=== PATIENT | female | born 1950 | race Caucasian/White ===

== ENCOUNTER 2018-04-10 09:37 | Inpatient (IN) ==
[2018-04-10 10:24] LABS: Eosinophils # 0.1 K/mcL (0.0-0.6); Eosinophils % 1.9 %; Hematocrit 41.4 % (35.3-44.9); Hemoglobin 15.1 g/dL (11.5-15.4); Immature Granulocytes % 0.3 % (0-4); Lymphocytes # 0.4 K/mcL (0.6-4.6); Lymphocytes % 5.8 %; Mean Corpuscular HGB Conc 36.5 g/dL (31.6-35.5); Mean Corpuscular Volume 93.2 fL (83.0-100.0); Mean Platelet Volume 10.9 fL (9.4-12.4); Monocytes # 0.3 K/mcL (0.0-1.3); Monocytes % 5.4 %; Neutrophils # 5.5 K/mcL (1.6-8.9); Platelet Count 235 K/mcL (140-400); Red Blood Count 4.44 M/mcL (3.82-4.97); Red Cell Distribution Width 13.4 % (11.5-14.5); Segmented Neutrophils % 86.6 %
--- NOTE | 2018-04-10 10:25 | Emergency Department Note ---
Disposition Clinical Impression: Hyponatremia Cerebrovascular accident Qualifiers: CVA mechanism: unspecified Qualified Code(s): I63.9 - Cerebral infarction, unspecified Disposition: Admitted As Inpatient Condition: Good Referrals: Elaina Andrade CNP [Primary Care Provider] - Forms: ED Satisfaction Letter General Adult HPI - General Chief complaint: ED Neuro Symptoms/Deficit Stated complaint: ALEXX/neuro slurred speech x 2 days/headache Nursing Notes Reviewed: Yes Vital Signs Reviewed: Yes - History of Present Illness HPI Narrative: Slurred speech right-sided facial weakness that was first noticed this morning. Sister also states patient is confused. Last known well was 9:00 last night per the . Patient is currently being treated for a nonhealing wound to her left lower extremity. Patient does say that she feels a little confused. She reports that she was taking Bactrim and was told to stop this after she developed a rash all over her body. She states the rash is itchy. She denies any overt shortness of breath she states she does have a cough and has some mild shortness of breath but not to the extreme. No chest pain. She is conversant and laughing whenever I am examining her. There is no gross lateralizing weakness or extremities however she does have a mild droop to the right face. She is alert and oriented 3 however does appear confused. She forgot only takes a long time to answer questions. But she does know person place and time. Pain Scale: 10 - Related Data Home Medications Medication Instructions Recorded Confirmed Losartan/Hydrochlorothiazide 1 tab PO DAILY 01/29/18 01/29/18 [Losartan-Hctz 100-25 mg Tab] Cefepime HCl [Maxipime] 2 gm IV BID 04/10/18 04/10/18 Ibuprofen [Motrin Ib] 400 mg PO BID PRN 04/10/18 04/10/18 Allergies Allergy/AdvReac Type Severity Reaction Status Date / Time sulfamethoxazole Allergy Hives Verified 04/10/18 11:33 [From Bactrim] trimethoprim [From Bactrim] Allergy Hives Verified 04/10/18 11:33 All systems ED: reviewed and negative except as stated. Review of Systems: As Per HPI Constitutional: Denies: fever, chills Eyes: Denies: vision change Cardiovascular: Denies: chest pain, syncope Respiratory: Denies: cough, dyspnea Gastrointestinal: Denies: abdominal pain, nausea, vomiting, diarrhea Genitourinary: Denies: urgency, dysuria, frequency Musculoskeletal: Denies: back pain, neck pain Integumentary: Reports: lesions (non healing wound to left lower leg. Wound vac on) Past Medical History - Past Medical History Attestation: Yes The following information was validated with the patient. Source: patient Medical history: Reports: hyperlipidemia, hypertension, venous stasis Surgical history: Reports: appendectomy, orthopedic, other Psychiatric history: Reports: no psych history - Social History Smoking Status: Never smoker Smokeless Tobacco Status: No Alcohol use: Reports: none Drug use: Reports: none Physical Exam - General Limitations: no limitations General appearance: alert, in no apparent distress, other (Patient does appear somewhat confused and has mildly slurred speech.) - Head Head exam: atraumatic, normocephalic, normal inspection - Eye Eye exam: Present: normal appearance, PERRL, EOMI - ENT ENT exam: normal exam, normal oropharynx, mucous membranes moist, other ( Patient has good nasolabial folds whenever she smiles however at rest she does appear to have a right-sided facial droop. The patient's sister states that it was worse earlier but does report that it is still there.) - Neck Neck exam: Present: normal inspection, full ROM, trachea midline - Chest Chest inspection: Present: normal inspection, symmetric chest wall rise - Respiratory Respiratory exam: Present: normal lung sounds bilaterally. Absent: respiratory distress, accessory muscle use - Cardiovascular Cardiovascular exam: Present: regular rate, normal rhythm, normal heart sounds - Abdominal Exam Abdominal exam: Present: soft, Non-Tender. Absent: tenderness, distention, guarding, rebound, rigidity, organomegaly - Extremities Exam Extremities exam: Present: normal inspection, full ROM. Absent: tenderness, pedal edema - Back Exam Back exam: Present: normal inspection, full ROM. Absent: tenderness - Neurological Exam Neurological exam: Present: alert, oriented X3, other (Patient has good sensation in all 4 extremity is. She has good motor she has generalized weakness but no lateralizing deficits of her extremities. Patient does have a right-sided facial droop. However whenever she smiles she has good nasolabial folds. She does have some a mild slurred speech.). Absent: motor sensory deficit - Psychiatric Psychiatric exam: Present: normal affect, normal mood - Skin Skin exam: Present: warm, dry, rash (Urticarial to most of her body) Course Course Narrative: Female patient presenting to the emergency department with her sister. Sister states that she is bringing the patient today to have blood work done. 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 I have seen her in the hospital approximately a week to 2 ago for PICC line issues. She states she had her PICC line changed has been working appropriately. However she is supposed to have repeat lab work done today. When the sister went to put her up she states that the patient had slurred speech and some right-sided facial drooping. She brought her to the hospital. On arrival to the room the patient does seem to be more confused than normal. She does have a slurred speech. She has good nasolabial fold however at rest her right side of her mouth does appear to be drooping. The sister states that her symptoms are getting better however she does still have some slurred speech. The patient has no lateralizing deficits to her arms or legs. She has a generalized weakness. She does have a wound VAC to the left lower extremity. She reports a cough and some mild shortness of breath for the past week. Denies any chest pain. Also complaining of a rash that is very itchy to her body. States it started around Saturday. She is concerned and spoke with Dr. Casarez the ID doctor. They stopped her Bactrim at that time. The rash has not gotten any worse however it is still there. She does describe it as itching. It appears to be urticarial in nature. Patient's lung sounds are clear heart tones are normal. Her abdomen is soft nontender on exam. Patient sister states that her symptoms have gotten better since she has been here. We did activate the stroke alert. CT was negative. He [facility] neurologist can over the telephone stroke monitor and advised that she also believes the patient is having a stroke at this time. However due to patient's resolving symptoms and minor symptoms we will not be giving TPA at this time. She is also greater than 6 hours since the last known well. Patient did become mildly hypotensive. We did give her a liter of fluid. She is also found to be hyponatremic. We will have patient on a fluid restriction while she is here. She recommended an MRI the patient's head and an MRA without contrast. They state they do not believe the patient is a candidate for thrombectomy. They were agreeable with no TPA. Patient does have an urticarial rash to most of her body she does not appear to be in anaphylaxis. She has not short of breath. She has no swelling. Oropharynx is not erythematous. She does not appear to be in distress. - Reevaluation(s) Reevaluation #1: I did discuss the patient with Dr. Perkins the neurologist. The MRI did show stenosis of her vertebral artery. We will admit patient to the hospital service for further neurology workup. Time: 15:43 - Consultations Consultation #1: I spoke with Dr Lundy. He states thta he wll consult with the Pt. He had no further recommendations. Time: 15:36 Consultation #2: Dr Martinez accepted Pt in stable condition. Time: 15:42 Vital Signs Temperature 98.3 F 04/10/18 09:43 Pulse Rate 76 04/10/18 09:43 Respiratory Rate 24 04/10/18 09:43 Blood Pressure 80/55 04/10/18 09:43 O2 Sat by Pulse Oximetry 98 04/10/18 09:43 Temperature 98.3 F 04/10/18 09:48 Pulse Rate 79 04/10/18 15:35 Respiratory Rate 22 04/10/18 15:35 Blood Pressure 98/68 04/10/18 15:35 O2 Sat by Pulse Oximetry 97 04/10/18 15:35 Oxygen Delivery Oxygen Delivery Nasal Cannula Medical Decision Making - Medical Records Medical records reviewed: Yes I reviewed the patient's medical records. - Lab Data Lab results reviewed: Yes I reviewed the patient's lab results. Result diagrams: 04/10/18 10:09 04/10/18 10:09 Lab Results 04/10/18 04/10/18 04/10/18 Range/Units 10:09 10:09 10:09 WBC 6.3 (4.3-11.1) K/mcL RBC 4.44 (3.82-4.97) M/mcL Hgb 15.1 (11.5-15.4) g/dL Hct 41.4 (35.3-44.9) % MCV 93.2 (83.0-100.0) fL MCH 34.0 H (28.0-33.3) pg MCHC 36.5 H (31.6-35.5) g/dL RDW 13.4 (11.5-14.5) % Plt Count 235 (140-400) K/mcL MPV 10.9 (9.4-12.4) fL Immature Gran % 0.3 (0-4) % Seg Neutrophils % 86.6 % Lymphocytes % 5.8 % Monocytes % 5.4 % Eosinophils % 1.9 % Basophils % 0.0 % Neutrophils # 5.5 (1.6-8.9) K/mcL Lymphocytes # 0.4 L (0.6-4.6) K/mcL Monocytes # 0.3 (0.0-1.3) K/mcL Eosinophils # 0.1 (0.0-0.6) K/mcL Basophils # 0.0 (0.0-0.2) K/mcL PT 13.0 H (9.4-12.1) Seconds INR 1.2 APTT 25.9 L (26.0-36.0) Seconds Sodium 123 L (136-145) mEq/L Potassium 3.7 (3.5-5.1) mEq/L Chloride 93 L (98-107) mEq/L Carbon Dioxide 16 L (23-29) mEq/L BUN 80 H (8-23) mg/dL Creatinine 1.63 H (0.60-1.20) mg/dL Est GFR ( Amer) 38 L (> 60) Est GFR (Non-Af Amer) 31 L (> 60) BUN/Creatinine Ratio 49 H (6-26) Glucose 162 H (70-105) mg/dL Calculated Osmolality 284 (280-300) Lactic Acid (0.5-2.2) mmol/L Calcium 9.8 (8.6-10.3) mg/dL Troponin I < 0.03 (< 0.04) ng/mL Urine Color (Yellow) Urine Clarity (Clear) Urine pH (5.0-8.0) pH Units Ur Specific [place] (1.010-1.025) Urine Protein (Neg-Trace) mg/dL Urine Glucose (UA) (Normal) mg/dL Urine Ketones (Negative) mg/dL Urine Blood (Negative) Urine Nitrite (Negative) Urine Bilirubin (Negative) Urine Urobilinogen (Normal) mg/dL Ur Leukocyte Esterase (Negative) Urine Microscopic RBC (0-3) per hpf Urine Microscopic WBC (0-3) per hpf Ur Squamous Epith Cells (None-Few) per lpf Amorphous Sediment (Few) Urine Bacteria (None-Few) per hpf Hyaline Casts (None-Few) per lpf Ur Culture Indicated? (NO) Specimen Rejected 04/10/18 04/10/18 04/10/18 Range/Units 11:32 12:26 14:00 WBC (4.3-11.1) K/mcL RBC (3.82-4.97) M/mcL Hgb (11.5-15.4) g/dL Hct (35.3-44.9) % MCV (83.0-100.0) fL MCH (28.0-33.3) pg MCHC (31.6-35.5) g/dL RDW (11.5-14.5) % Plt Count (140-400) K/mcL MPV (9.4-12.4) fL Immature Gran % (0-4) % Seg Neutrophils % % Lymphocytes % % Monocytes % % Eosinophils % % Basophils % % Neutrophils # (1.6-8.9) K/mcL Lymphocytes # (0.6-4.6) K/mcL Monocytes # (0.0-1.3) K/mcL Eosinophils # (0.0-0.6) K/mcL Basophils # (0.0-0.2) K/mcL PT (9.4-12.1) Seconds INR APTT (26.0-36.0) Seconds Sodium (136-145) mEq/L Potassium (3.5-5.1) mEq/L Chloride (98-107) mEq/L Carbon Dioxide (23-29) mEq/L BUN (8-23) mg/dL Creatinine (0.60-1.20) mg/dL Est GFR ( Amer) (> 60) Est GFR (Non-Af Amer) (> 60) BUN/Creatinine Ratio (6-26) Glucose (70-105) mg/dL Calculated Osmolality (280-300) Lactic Acid 1.5 (0.5-2.2) mmol/L Calcium (8.6-10.3) mg/dL Troponin I (< 0.04) ng/mL Urine Color Yellow (Yellow) Urine Clarity Slightly Cloudy A (Clear) Urine pH 6.0 (5.0-8.0) pH Units Ur Specific [place] 1.019 (1.010-1.025) Urine Protein 100 H (Neg-Trace) mg/dL Urine Glucose (UA) Normal (Normal) mg/dL Urine Ketones Negative (Negative) mg/dL Urine Blood Moderate H (Negative) Urine Nitrite Negative (Negative) Urine Bilirubin Negative (Negative) Urine Urobilinogen Normal (Normal) mg/dL Ur Leukocyte Esterase Negative (Negative) Urine Microscopic RBC 0-3 (0-3) per hpf Urine Microscopic WBC 3-5 H (0-3) per hpf Ur Squamous Epith Cells Many H (None-Few) per lpf Amorphous Sediment Few (Few) Urine Bacteria Many H (None-Few) per hpf Hyaline Casts None Seen (None-Few) per lpf Ur Culture Indicated? NO (NO) Specimen Rejected Clotted - Radiology Data Radiology results reviewed: Yes I reviewed the patient's radiology results. Head CT 04/10/18 10:07 IMPRESSION: No acute intracranial abnormality. D/ / Bruce Alonzo MD / Bruce Alonzo MD Interpreting Provider: Bruce Alonzo MD Chest X-Ray 04/10/18 10:08 IMPRESSION: Subtle right suprahilar nodular opacity, nonspecific and likely related to overlapping structures at the 1st costochondral junction. Consider short-term follow-up to ensure resolution. Mild left basilar atelectasis. D/ / 04/10/2018 10:36:28 Nilam Yap MD / areli Interpreting Provider: Nilam Yap MD - EKG Data EKG #1 EKG attestation: Yes I reviewed and interpreted this EKG. EKG results narrative: Normal sinus rhythm at a rate 85. NC interval is 196. Castration is 101. QT is 360. QTC is 428. No signs of acute ischemia. No significant change from previous EKG dated 01/28/2018.
[2018-04-10] MEDS ORDERED: WATER FOR INJ IVPB ONE ×2 (10:30)
[2018-04-10] MEDS ORDERED: ALTEPLASE IVPB ONE ×2 (10:30)
[2018-04-10 10:31] LABS: INR 1.2
[2018-04-10 10:34] LABS: Activated Partial Thrombo Time 25.9 Seconds (26.0-36.0)
[2018-04-10] MEDS ORDERED: 0.9 % Sodium Chloride 1,000 ML ONE (10:40)
[2018-04-10 10:44] LABS: BUN/Creatinine Ratio 49 (6-26); Blood Urea Nitrogen 80 mg/dL (8-23); Calcium 9.8 mg/dL (8.6-10.3); Carbon Dioxide 16 mEq/L (23-29); Chloride 93 mEq/L (98-107); Glucose 162 mg/dL (70-105); Osmolality,Calculated 284 (280-300); Potassium 3.7 mEq/L (3.5-5.1); Sodium 123 mEq/L (136-145); Troponin I < 0.03 ng/mL (< 0.04); eGFR For Non-African Americans 31 (> 60)
--- NOTE | 2018-04-10 10:51 | Emergency Department Note ---
Disposition Clinical Impression: Cerebrovascular accident Qualifiers: CVA mechanism: unspecified Qualified Code(s): I63.9 - Cerebral infarction, unspecified Disposition: Still a Patient Forms: ED Satisfaction Letter General Adult HPI - General Chief complaint: ED Neuro Symptoms/Deficit Stated complaint: ALEXX/neuro slurred speech x 2 days/headache Time Seen by Provider: 04/10/18 09:51 - History of Present Illness Pain Scale: 10 - Related Data Home Medications Medication Instructions Recorded Confirmed Gabapentin [Neurontin] 100 mg PO HS 01/29/18 01/29/18 Losartan/Hydrochlorothiazide 1 tab PO DAILY 01/29/18 01/29/18 [Losartan-Hctz 100-25 mg Tab] Tramadol HCl [Ultram] 50 mg PO TID PRN 01/29/18 01/29/18 Previous Rx's Medication Instructions Recorded Amoxicillin/Clavulanate [Augmentin] 875 mg PO BID #14 tablet 01/29/18 Ondansetron ODT [Zofran ODT] 4 mg SL Q8HR PRN #12 tab.rapdis 01/29/18 Allergies Allergy/AdvReac Type Severity Reaction Status Date / Time No Known Allergies Allergy Verified 04/10/18 09:39 Past Medical History - Past Medical History Medical history: Reports: hyperlipidemia, hypertension, venous stasis Surgical history: Reports: appendectomy, orthopedic, other Psychiatric history: Reports: no psych history - Social History Smoking Status: Never smoker Smokeless Tobacco Status: No Alcohol use: Reports: none Drug use: Reports: none Physical Exam - General General appearance: alert, in no apparent distress Course - Reevaluation(s) Reevaluation #1: Attestation note: Patient was seen with the emergency medicine resident/nurse practitioner/ physician human resources benefits assistant/transitional resident/medical student: Dr. Carmella Bradley I have personally performed a face to face evaluation on this patient. I have reviewed and agree with history and physical examination patient management and disposition. Briefly the salient points of the case are as follows: 60-year-old female presents with the neuro findings in slurred speech since 9 PM last night. Patient has what appears to be a stroke stroke alert was called the neurologist on the telephone stroke robot from the [facility] evaluated the patient and determined that this patient is out of the TPA window which revealed read. Due to the patient's possible compromise of renal function and GFR we will do an MRA MRI without contrast and admit patient at [facility] to the hospitalist with neuro consultation. She did get aspirin or anything getting aspirin. She has some mild facial droop mild slurred speech. Patient to be admitted. Provided 45 minutes critical care service for this patient admission disposition pending Time: 10:49 Vital Signs Temperature 98.3 F 04/10/18 09:43 Pulse Rate 76 04/10/18 09:43 Respiratory Rate 24 04/10/18 09:43 Blood Pressure 80/55 04/10/18 09:43 O2 Sat by Pulse Oximetry 98 04/10/18 09:43 Temperature 98.3 F 04/10/18 09:48 Pulse Rate 79 04/10/18 10:33 Respiratory Rate 20 04/10/18 10:33 Blood Pressure 90/61 04/10/18 10:33 O2 Sat by Pulse Oximetry 97 04/10/18 10:33 Oxygen Delivery Oxygen Delivery Nasal Cannula Medical Decision Making - Lab Data Result diagrams: 04/10/18 10:09 04/10/18 10:09 Lab Results 04/10/18 04/10/18 04/10/18 Range/Units 10:09 10:09 10:09 WBC 6.3 (4.3-11.1) K/mcL RBC 4.44 (3.82-4.97) M/mcL Hgb 15.1 (11.5-15.4) g/dL Hct 41.4 (35.3-44.9) % MCV 93.2 (83.0-100.0) fL MCH 34.0 H (28.0-33.3) pg MCHC 36.5 H (31.6-35.5) g/dL RDW 13.4 (11.5-14.5) % Plt Count 235 (140-400) K/mcL MPV 10.9 (9.4-12.4) fL Immature Gran % 0.3 (0-4) % Seg Neutrophils % 86.6 % Lymphocytes % 5.8 % Monocytes % 5.4 % Eosinophils % 1.9 % Basophils % 0.0 % Neutrophils # 5.5 (1.6-8.9) K/mcL Lymphocytes # 0.4 L (0.6-4.6) K/mcL Monocytes # 0.3 (0.0-1.3) K/mcL Eosinophils # 0.1 (0.0-0.6) K/mcL Basophils # 0.0 (0.0-0.2) K/mcL PT 13.0 H (9.4-12.1) Seconds INR 1.2 APTT 25.9 L (26.0-36.0) Seconds Sodium 123 L (136-145) mEq/L Potassium 3.7 (3.5-5.1) mEq/L Chloride 93 L (98-107) mEq/L Carbon Dioxide 16 L (23-29) mEq/L BUN 80 H (8-23) mg/dL Creatinine 1.63 H (0.60-1.20) mg/dL Est GFR ( Amer) 38 L (> 60) Est GFR (Non-Af Amer) 31 L (> 60) BUN/Creatinine Ratio 49 H (6-26) Glucose 162 H (70-105) mg/dL Calculated Osmolality 284 (280-300) Calcium 9.8 (8.6-10.3) mg/dL Troponin I < 0.03 (< 0.04) ng/mL
[2018-04-10] MEDS ORDERED: Aspirin 325 MG TABLET PO ONE (11:00)
[2018-04-10 14:20] LABS: Bilirubin,Urine Negative (Negative); Blood,Urine Moderate (Negative); Color,Urine Yellow (Yellow); Glucose,Urine (UA) Normal (Normal); Ketones,Urine Negative (Negative); Leukocyte Esterase,Urine Negative (Negative); Nitrite,Urine Negative (Negative); Protein,Urine 100 mg/dL (Neg-Trace); Specific Gravity,Urine 1.019 (1.010-1.025); Urobilinogen,Urine Normal (Normal)
[2018-04-10 14:23] LABS: Hyaline Casts,Urine None Seen per lpf (None-Few); RBC,Urine 0-3 per hpf (0-3); Squamous Epithelial Cell,Urine Many per lpf (None-Few)
[2018-04-10 14:25] LABS: Clarity,Urine Slightly Cloudy (Clear)
[2018-04-10 14:39] LABS: Amorphous Sediment,Urine Few (Few); Bacteria,Urine Many per hpf (None-Few)
[2018-04-10] MEDS ORDERED: traMADol 50 MG TABLET PO STA (15:55)
--- NOTE | 2018-04-10 16:45 | Neurology - Consult Note ---
Date of Encounter: 04/10/18 Time of Encounter: 16:41 Assessment and Plan (1) TIA (transient ischemic attack) Current Visit: Yes Status: Acute Symptoms better described as TIA than CVA since MRI of brain was negative for acute infarct and her symptoms have resolved within few hours after symptoms onset. She is aspirin naive so agree with aspirin 325mg daily. Will need echocardiography and carotid artery duplex. The finding of severe right vertebral artery stenosis or occlusion on MRA of brain require conservative therapy only and CT angio result likely will not change treatment. However, for completeness of the work up if CT angio is to be done, it should be done after renal function improves to a point where CT angiogram with contrast can be safely administered. Check lipid panel and treat with statin accordingly. Please continue medical and supportive care. History of Present Illness Chief complaint: facial droop and slurred speech, TIA HPI: Ms. Crespo is a 68 year old female with PMH significant for nonhealing wound in her lower extremity, HTN, HDL venous stasis dermatitis, ulcer to the left leg who presented to the Er with altered mental status and facial droop. Was noticed to have facial droop this AM, last known well last night. Was also found to be slightly confused. This was noticed by her sister in law Jaye who states that she found her having right sided facial droop and she has difficulty getting her words out. The symptoms lasted few hours in duration and then slowly improved. CT of head reported no acute intracranial abnormality.[facility] stroke team recommended no tPA thrombolysis. She completed MRI of brain which showed no acute intracranial abnormality. No acute infarct. 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 At present time she was just transferred from and she no longer has facial droop or speech difficulty. She is somewhat nervous because of the left pain and she was given pain med. She is having stiffness to the left leg likely due to presence of pain Past Med Surg Social Fam HX - Past Medical History Medical history: hyperlipidemia, hypertension, venous stasis Additional medical history: Superficial Phlebitis Psychiatric history: no psych history - Past Surgical History Surgical History: appendectomy, orthopedic, other Additional surgical history: fx rt knee repair - Social History Smoking Status: Never smoker Smokeless Tobacco Status: No Alcohol use: none Drug use: none - Family History Mother Living Status: Medications and Allergies Losartan/Hydrochlorothiazide [Losartan-Hctz 100-25 mg Tab] 1 tab PO DAILY [History] Cefepime HCl [Maxipime] 2 gm IV BID 04/10/18 [History] Ibuprofen [Motrin Ib] 400 mg PO BID PRN 04/10/18 [History] 3 Allergy/AdvReac Type Severity Reaction Status Date / Time sulfamethoxazole Allergy Hives Verified 04/10/18 11:33 [From Bactrim] trimethoprim [From Bactrim] Allergy Hives Verified 04/10/18 11:33 All Systems: The remainder of the systems were reviewed and are negative Physical Examination - Vital Signs Vital Signs: Initial Vital Signs Temp Pulse Resp BP Pulse Ox 98.3 F 76 24 80/55 98 04/10/18 09:43 04/10/18 09:43 04/10/18 09:43 04/10/18 09:43 04/10/18 09:43 - Constitutional General appearance: chronically ill - Neurologic Sensorimotor examination: intact Detailed motor examination: other (Due to the left leg pain, muscle strength can not be accurated ly assessed. ) Motor examination - right side: 5/5: deltoids, biceps, triceps, wrist flexion, wrist extension, collection systems technician, hip flexors, tibialis Anterior, quadriceps, toe extension (EHL), plantarflexion Motor examination - left side: 5/5: deltoids, biceps, triceps, wrist flexion, wrist extension, collection systems technician Detailed sensory examination: intact Posture: other (None) Reflex and gait examination: intact Reflexes: Biceps: 2+, Triceps: 2+, Brachioradialis: 2+, Patella: 2+, Achilles: 2 + Mental Status Examination: awake, alert, oriented to person, oriented to place, oriented to time, follows commands appropriately, answers questions appropriately, no agnosia, no aphasia, no aproxia Cranial nerve examination: PERRL, EOMI, visual castro intact, corneal reflexes brisk symmetrically, sensory to face intact, mastication intact, no facial asymmetry is present, no dysarthria, hearing is intact symmetrically, soft palate elevates bilaterally upon phonation, gag reflex intact, flexes SCM and trapezius muscles symmetrically with full power, tongue protrudes midline, no atrophy or facial fasiculations present Results - Laboratory Findings CBC and BMP: 04/10/18 10:09 04/10/18 10:09 Abnormal lab findings: Abnormal lab results MCH 34.0 pg (28.0-33.3) H 04/10/18 10:09 MCHC 36.5 g/dL (31.6-35.5) H 04/10/18 10:09 Lymphocytes # 0.4 K/mcL (0.6-4.6) L 04/10/18 10:09 PT 13.0 Seconds (9.4-12.1) H 04/10/18 10:09 APTT 25.9 Seconds (26.0-36.0) L 04/10/18 10:09 Sodium 123 mEq/L (136-145) L 04/10/18 10:09 Chloride 93 mEq/L (98-107) L 04/10/18 10:09 Carbon Dioxide 16 mEq/L (23-29) L 04/10/18 10:09 BUN 80 mg/dL (8-23) H 04/10/18 10:09 Creatinine 1.63 mg/dL (0.60-1.20) H 04/10/18 10:09 Est GFR ( Amer) 38 (> 60) L 04/10/18 10:09 Est GFR (Non-Af Amer) 31 (> 60) L 04/10/18 10:09 BUN/Creatinine Ratio 49 (6-26) H 04/10/18 10:09 Glucose 162 mg/dL (70-105) H 04/10/18 10:09 Urine Clarity Slightly Cloudy (Clear) A 04/10/18 14:00 Urine Protein 100 mg/dL (Neg-Trace) H 04/10/18 14:00 Urine Blood Moderate (Negative) H 04/10/18 14:00 Urine Microscopic WBC 3-5 per hpf (0-3) H 04/10/18 14:00 Ur Squamous Epith Cells Many per lpf (None-Few) H 04/10/18 14:00 Urine Bacteria Many per hpf (None-Few) H 04/10/18 14:00 Consult Discharge Plan - Plan Referrals: Elaina nAdrade, TE[employer] [facility] [Primary Care Provider] -
[2018-04-10] MEDS ORDERED: Naloxone 0.4 MG/ML INJ IVP PRN (17:10)
[2018-04-10] MEDS ORDERED: Ipratropium/Albuterol Neb 3 ML IH PRN (17:27)
[2018-04-10] MEDS ORDERED: Cefepime HCl 2,000 MG in Water for inj. (sterile) 20 ML 20 ML IVP SCH (18:00)
[2018-04-10] MEDS ORDERED: Ondansetron ODT 4 MG TAB.RAPDIS SL PRN (18:18)
--- NOTE | 2018-04-10 18:24 | Internal Med History&Physical ---
<Rayshawn Pérez R - Last Filed: 04/10/18 18:21> Date of Encounter: 04/10/18 Time of Encounter: 18:21 Internal Medicine - H&P: HPI Chief complaint: Slurred speech Admitted From: Emergency Dept History of present illness: Ms. Crespo is a 68 year old female with a PMH of HTN who presented to [facility] on with facial droop and slurred speech. Patients symptoms began at 730 am, patient was unaware of symptoms. Relative noticed symptoms when picking her up for wound appointment and brought her to hospital ED. Stroke alert called in the ED, [facility] called - no TPA or thrombectomy. Her symptoms have resolved now. Patient was recently seen by wound care and put on Cefepime for a wound infection 3 weeks ago via PICC line, and Bactrim was added 2 weeks ago. Bactrim was stopped with last dose 4 days ago due to outbreak of hives. Patient has not had any recent changes in sleep or activity. Patient has had minimal food intake for several weeks with only 1-2 snacks per day and no full meals, and has been drinking on average 12 cups of water daily. Her wound dressings are changed 2x per week. On ROS patient denies vision changes, hearing changes, palpitations, chest pain , nausea, vomiting, constipation, hematuria, increased urinary frequency, increased urinary urgency. Positive for chills, diarrhea which began after cefepime usage. Stool is soft, but not loose or liquid. Past Med Surg Social Fam HX - Past Medical History Medical history: hyperlipidemia, hypertension, venous stasis Additional medical history: Superficial Phlebitis Psychiatric history: no psych history - Past Surgical History Surgical History: appendectomy, orthopedic, other Additional surgical history: fx rt knee repair - Social History Smoking Status: Never smoker Smokeless Tobacco Status: No Alcohol use: none Drug use: none - Family History Mother Living Status: Hx Family Neurologic Disorders: Yes (CVA) Father Hx Family Endocrine Disorder: Yes (DM) Internal Medicine - H&P: Meds Losartan/Hydrochlorothiazide [Losartan-Hctz 100-25 mg Tab] 1 tab PO DAILY [History] Cefepime HCl [Maxipime] 2 gm IV BID 04/10/18 [History] Ibuprofen [Motrin Ib] 400 mg PO BID PRN 04/10/18 [History] 3 Allergy/AdvReac Type Severity Reaction Status Date / Time sulfamethoxazole Allergy Hives Verified 04/10/18 11:33 [From Bactrim] trimethoprim [From Bactrim] Allergy Hives Verified 04/10/18 11:33 All Systems PM: A 10-system review of systems was performed and is negative for pertinent findings except as documented above in the HPI. - Constitutional Vitals: Temp Pulse Resp BP Pulse Ox 98.3 F 79 22 118/96 97 04/10/18 09:48 04/10/18 15:35 04/10/18 16:31 04/10/18 16:31 04/10/18 15:35 General appearance: Present: A&O X 3, no acute distress, answers questions appropriately Exam: GEN: anxious appearing obese female in no acute distress, on 2L NC, A&Ox3 HEENT: dry mucous membranes, atruamatic, PEERL, EOMI CV: RRR, no murmurs RESP: CTAB, no wheezes, no rales GI: BSx4, non tender to palpation, no organomegaly NEURO: CN II-XII intact. strength symmetrical in biceps, triceps, paper sorter, deltoids , hip flexors, knee extensors, dorsiflexion, plantarflexion, hallux. Sensation intact bilaterally. Normal finger to nose, heel valladares glide bilaterally. Smile symmetric bilaterally. No facial droop. MSK: generalized weakness, no joint pain Internal Med - H&P Results - Labs CBC & Chem 7: 04/10/18 10:09 04/10/18 10:09 - Assessment and plan (1) TIA (transient ischemic attack) Current Visit: Yes Status: Acute Assessment and plan: NIH Stroke Scale score currently: 0 - symptoms resolved Possibly secondary to vertebral artery stenosis, risk factors include borderline HLD, obesity, HTN, age Consider workup for vasculitic causes Patient had symptoms for several hours - now resolved Head CT normal. Head MRA and Brain MRI show right vertebral artery proximal stenosis Continuous cardiac monitoring Echo, Carotid duplex U/S to evaluate for PFO, cardiac function and carotid artery stenosis Lipid panel, PT/OT, bedside swallow study, urine drug screen Start patient on cardiac diet. Start on full dose ASA (2) PETR (acute kidney injury) Current Visit: Yes Status: Acute Assessment and plan: Patient has baseline Cr: 0.8, Currently Cr: 1.68, BUN: 80 Pt appears dry despite increased water intake history Likely prerenal secondary to dehydration and HCTZ Patient on IFV for hyponatremia, monitor Cr function Hold nephrotoxic medications - ARB, HCTZ (3) Hyponatremia Current Visit: Yes Status: Acute Assessment and plan: Likely secondary to polydipsia in combination with HCTZ use Start patient on 0.9% NS 100 mL/hr, start diet and recheck BMP (4) HTN (hypertension) Current Visit: Yes Status: Acute Assessment and plan: Patient is boreline hypotensive at 98/68 Hold home HTN meds Qualifiers: Hypertension type: essential hypertension Qualified Code(s): I10 - Essential (primary) hypertension (5) Venous ulcer of leg Current Visit: No Status: Acute Assessment and plan: Chronic - wound vac in place Patient has Cefepime for wound infection Consult ID, follow per recommendations Qualifiers: Laterality: left Qualified Code(s): I83.029 - Varicose veins of left lower extremity with ulcer of unspecified site; L97.929 - Non-pressure chronic ulcer of unspecified part of left lower leg with unspecified severity; L97.929 - Non- pressure chronic ulcer of unspecified part of left lower leg with unspecified severity; L97.929 - Non-pressure chronic ulcer of unspecified part of left lower leg with unspecified severity; L97.929 - Non-pressure chronic ulcer of unspecified part of left lower leg with unspecified severity - Time Spent With Patient Total time spent is greater than 50% in coordination of care (as documented) at patient's floor/unit and/or counseling patient: <Andria Riddle - Last Filed: 04/10/18 21:32> Date of Encounter: 04/10/18 Internal Medicine - H&P: HPI History of present illness: Ms. Crespo is a 68 year old female All Systems PM: A 10-system review of systems was performed and is negative for pertinent findings except as documented above in the HPI. - Constitutional Vitals: Temp Pulse Resp BP Pulse Ox 98.9 F 88 17 116/72 96 04/10/18 19:13 04/10/18 20:05 04/10/18 20:05 04/10/18 20:05 04/10/18 19:13 Internal Med - H&P Results - Labs CBC & Chem 7: 04/10/18 10:09 04/10/18 10:09 - Attending Attestation I examined this patient and my medical decision-making was reviewed with the Resident Physician Dr. Pérez. I agree with the documented findings, disposition and treatment plan as described except to the extent set forth below. - Time Spent With Patient Total time spent is greater than 50% in coordination of care (as documented) at patient's floor/unit and/or counseling patient:
--- NOTE | 2018-04-10 18:35 | Infectious Disease Consult ---
Date of Encounter: 04/10/18 Time of Encounter: 18:26 Assessment and Plan (1) Venous ulcer of leg Status: Acute Assessment and plan: infected with pseudomonas aeruginosa currently on cefepime started on 03/19 infection improved; plan was to treat for 4-6 weeks depending on clinical picture wound vac to be changed saturday, will evaluate then and make further recommendations. continue cefepime; CrCl around 28; will change dose to 500mg q24 hurs Once Cr improves, we will dose adjust Qualifiers: Laterality: left Qualified Code(s): I83.029 - Varicose veins of left lower extremity with ulcer of unspecified site; L97.929 - Non-pressure chronic ulcer of unspecified part of left lower leg with unspecified severity; L97.929 - Non- pressure chronic ulcer of unspecified part of left lower leg with unspecified severity; L97.929 - Non-pressure chronic ulcer of unspecified part of left lower leg with unspecified severity; L97.929 - Non-pressure chronic ulcer of unspecified part of left lower leg with unspecified severity (2) Facial droop Status: Acute Assessment and plan: resolved - likely due to TIA (3) Rash Status: Acute Assessment and plan: started on 04/07 likely due to bactrim if does not improved in the next 48 hours, might consider that it's due to cefepime? zyrtec and ranitidine steroids (4) Allergy to antibiotic Status: Acute Assessment and plan: reaction on Saturday likely due to bactrim couldn't rule out reaction to cefepime though, so we have to be vigilant (5) PETR (acute kidney injury) Status: Acute Assessment and plan: likely prerenal will ask pharmacy to help us dose cefepime (6) Cerebrovascular accident Status: Acute Assessment and plan: TIA symptoms resolved neurology following Qualifiers: CVA mechanism: unspecified Qualified Code(s): I63.9 - Cerebral infarction, unspecified (7) HTN (hypertension) Status: Acute Qualifiers: Hypertension type: essential hypertension Qualified Code(s): I10 - Essential (primary) hypertension (8) Hyponatremia Status: Acute Infectious Disease HPI - Data of Consult Patient: known to practice within the last 3 years Consult date: 04/10/18 Requesting Physician: Joey Martinez MD Primary Care Provider: Elaina Andrade CNP - Consult Narrative Reason for consult: cellulitis/venous stasis with allergic reaction to antibiotics History of present illness: Ms. Crespo is a 68 year old female Patient is 68-year-old woman who was admitted today for possible CVA, I am seeing her for venous stasis ulcer that is infected. Patient is a 68-year-old woman who is well-known to my service who I am following for venous stasis ulcers infected with pseudomonas aeruginosa that is resistant to fluoroquinolones requiring cefepime. Patient also following with Dr. Patrick. We tried topical and wound care treatment but the leg never improved. I did receive a phone call from Dr. Patrick asking me to see the patient as an outpatient for antibiotic therapy. Patient was seen by Dr. velazquez and on 12/30/2017 she underwent left great saphenous vein radiofrequency ablation and left accessory saphenous vein radiofrequency ablation. Patient was doing well on the cefepime and symptoms were improving. I did see the patient on April 01 and there was concern for swelling and erythema on the midline site left upper extremity. Midline was removed placed on the opposite side. Patient was seen in the emergency department and DVT was ruled out. When I saw her in clinic there was still some erythema and swelling so I put her on Bactrim for 7 days. On 04/07 patient called my office stating that she is having a rash which we attributed to the Bactrim and we asked her to stop it. Patient was instructed to call if she starts having wheezing or shortness of breath and go to the nearest emergency department. This morning apparently patient started having some altered mental status, sluggish speech and left facial drooping. Apparently patient never had anything similar in the past. Patient was sent to the ED from dermatology. Since admission, patient has been afebrile. No tachycardia. She has been tachypneic and a little bit short of breath. She has also been mildly hypotensive. Presenting labs revealed WBC of 6.3 BUN of 80 and creatinine of 1.63. Blood cultures were obtained and a urine was obtained. Brain MRI showed no acute intracranial abnormalities. Absent signal in the intracranial right vertebral artery concerning for high-grade proximal stenosis or occlusion. They recommended a CTA of the chest. Neurology has been consult. Currently patient is awake and alert oriented pleasant she is a little bit anxious and shaky. Patient facial drooping has resolved and her speech is no longer slurred. CC: Joey Martinez MD Past Med Surg Social Fam HX - Past Medical History Medical history: hyperlipidemia, hypertension, venous stasis Additional medical history: Superficial Phlebitis Psychiatric history: no psych history - Past Surgical History Surgical History: appendectomy, orthopedic, other Additional surgical history: fx rt knee repair - Social History Smoking Status: Never smoker Smokeless Tobacco Status: No Alcohol use: none Drug use: none - Family History Mother Living Status: Hx Family Neurologic Disorders: Yes (CVA) Father Hx Family Endocrine Disorder: Yes (DM) Infectious Disease-CN:Meds Losartan/Hydrochlorothiazide [Losartan-Hctz 100-25 mg Tab] 1 tab PO DAILY [History] Cefepime HCl [Maxipime] 2 gm IV BID 04/10/18 [History] Ibuprofen [Motrin Ib] 400 mg PO BID PRN 04/10/18 [History] 3 Allergy/AdvReac Type Severity Reaction Status Date / Time sulfamethoxazole Allergy Hives Verified 04/10/18 11:33 [From Bactrim] trimethoprim [From Bactrim] Allergy Hives Verified 04/10/18 11:33 Review of systems: 10 point ROS done, negative other for what's mentioned in the HPI Exam - Constitutional Vitals: Temp Pulse Resp BP Pulse Ox 98.3 F 79 22 118/96 97 04/10/18 09:48 04/10/18 15:35 04/10/18 16:31 04/10/18 16:31 04/10/18 15:35 General appearance: cooperative, no acute distress, no febrile - Head Head exam: Present: atraumatic, normocephalic - Eye Eye exam: Present: EOMI, PERRL, sclera anicteric - ENT ENT exam: Present: mucous membranes dry, normal exam - Neck Neck exam: Present: full ROM. Absent: meningismus - Respiratory Respiratory exam: Present: CTAB. Absent: wheezes - Cardiovascular Cardiovascular exam: Present: RRR, +S1, +S2. Absent: systolic murmur - GI/Abdominal GI/Abdominal exam: Present: normal bowel sounds, soft. Absent: tenderness - Extremities Exam Additional comments: left lower extremity venous stasis with wound vac placed - Back Exam Back exam: Absent: CVA tenderness (L), CVA tenderness (R) - Neurological Exam Neurological exam: Present: alert, CN II-XII intact, oriented X3. Absent: altered, facial droop, speech deficit - Psychiatric Psychiatric exam: Present: agitated, anxious - Skin Additional comments: diffuse maculopapular rash on the face, trunk, extremities and back Infectious Disease CN: Results - Labs CBC & Chem 7: 04/10/18 10:09 04/10/18 10:09 Consult Discharge Plan - Plan Referrals: Elaina Andrade LABELING SPECIALIST [Primary Care Provider] -
[2018-04-10] MEDS: 0.9 % Sodium Chloride 1,000 ML IVC SCH (18:49)
[2018-04-10 20:35] LABS: Amphetamine Screen,Urine Negative ng/mL (Cutoff=1000); Barbiturate Screen,Urine Negative ng/mL (Cutoff=200); Benzodiazepines Screen,Urine Negative ng/mL (Cutoff=200); Cannabinoid Screen,Urine Negative ng/mL (Cutoff = 50); Cocaine Screen,Urine Negative ng/mL (Cutoff= 300); Opiate Screen,Urine Negative ng/mL (Cutoff=300); Phencyclidine Screen,Urine Negative ng/mL (Cutoff=25)
[2018-04-10] MEDS: predniSONE 20 MG TABLET PO SCH (22:12)
[2018-04-10 22:49] LABS: BUN/Creatinine Ratio 66 (6-26); Blood Urea Nitrogen 67 mg/dL (8-23); Calcium 9.1 mg/dL (8.6-10.3); Carbon Dioxide 16 mEq/L (23-29); Chloride 98 mEq/L (98-107); Glucose 102 mg/dL (70-105); Osmolality,Calculated 282 (280-300); Potassium 3.4 mEq/L (3.5-5.1); Sodium 126 mEq/L (136-145); eGFR For Non-African Americans 55 (> 60)
[2018-04-10] MEDS: Acetaminophen 325 MG TABLET PO PRN (23:28)
[2018-04-11 04:45] LABS: Eosinophils # 0.1 K/mcL (0.0-0.6); Eosinophils % 1.7 %; Hematocrit 33.9 % (35.3-44.9); Immature Granulocytes % 0.4 % (0-4); Lymphocytes # 0.5 K/mcL (0.6-4.6); Lymphocytes % 10.6 %; Mean Corpuscular HGB Conc 35.4 g/dL (31.6-35.5); Mean Corpuscular Hemoglobin 32.6 pg (28.0-33.3); Mean Corpuscular Volume 92.1 fL (83.0-100.0); Mean Platelet Volume 11.2 fL (9.4-12.4); Monocytes # 0.3 K/mcL (0.0-1.3); Monocytes % 6.9 %; Neutrophils # 3.7 K/mcL (1.6-8.9); Platelet Count 175 K/mcL (140-400); Red Blood Count 3.68 M/mcL (3.82-4.97); Red Cell Distribution Width 13.1 % (11.5-14.5); Segmented Neutrophils % 80.4 %
[2018-04-11] MEDS: 0.9 % Sodium Chloride 1,000 ML IVC SCH ×2 (04:48→16:35)
[2018-04-11 05:11] LABS: Alanine Aminotransferase 25 Units/L (7-52); Albumin/Globulin Ratio 1.1 (1.1-2.2); Alkaline Phosphatase 43 Units/L (34-104); Aspartate Amino Transferase 23 Units/L (13-39); BUN/Creatinine Ratio 71 (6-26); Bilirubin,Total 0.5 mg/dL (0.3-1.0); Blood Urea Nitrogen 59 mg/dL (8-23); Calcium 8.5 mg/dL (8.6-10.3); Carbon Dioxide 13 mEq/L (23-29); Chloride 100 mEq/L (98-107); Chol/HDL Ratio 5.9 (0-4.9); Cholesterol 107 mg/dL (< 200); Globulin 2.8 g/dL (2.4-3.5); Glucose 146 mg/dL (70-105); HDL Cholesterol 18 mg/dL (40-59); LDL Cholesterol,Calculated 65 mg/dL (0-99); Osmolality,Calculated 277 (280-300); Sodium 124 mEq/L (136-145); Total Protein 5.8 g/dL (6.4-8.9); Triglycerides 120 mg/dL (< 150); eGFR For Non-African Americans > 60 (> 60)
[2018-04-11] MEDS: predniSONE 20 MG TABLET PO SCH (08:44)
[2018-04-11] MEDS: Aspirin 325 MG TABLET PO SCH (08:44)
[2018-04-11] MEDS: traMADol 50 MG TABLET PO PRN ×3 (08:48→21:47)
[2018-04-11] MEDS ORDERED: Cefepime HCl 2,000 MG in Water for inj. (sterile) 20 ML 20 ML IVP SCH (09:00)
--- NOTE | 2018-04-11 09:31 | Electrocardiograph Report ---
[facility] Test Date: 2018-04-10 Pat Name: Susan Crespo Department: Room: 2N15 Gender: F [employer]er: : [id number] Requested By: Juancho Potts Order Number: [id number] Reading MD: Jaren Rainey Measurements Intervals [place] Rate: 85 P: 6 VA: 196 QRS: -48 QRSD: 101 T: 45 QT: 360 QTc: 428 Interpretive Statements Sinus rhythm Atrial premature complex LAD, consider left anterior fascicular block RSR' in V1 or V2, right VCD or RVH Electronically Signed On 04-11-2018 9:30:08 EDT by Jaren Rainey
--- NOTE | 2018-04-11 09:51 | Internal Med Progress Note ---
<Cain Fuchs - Last Filed: 04/11/18 16:41> Hospitalist Progress Note - Encounter Date of Encounter: 04/11/18 Time of Encounter: 09:34 - Subjective Interval History: 68 year old female with PMHx of venous stasis ulcer, HTN, and HLD presented to [facility] for facial droop and slurred speech. Patient is doing well this morning and states her TIA symptoms have resolved. She states her rash has not improved since yesterday. She states her physician requested for her to drink more water, and she has been drinking more than a gallon of water daily. She denies TREVIÑO, blurred vision, fevers/chills, SOB, CP, abdominal pain, n/v/d, weakness, numbness. - Exam Vitals: Temp Pulse Resp BP Pulse Ox 97.9 F 67 20 99/67 96 04/11/18 07:12 04/11/18 07:12 04/11/18 07:12 04/11/18 07:12 04/11/18 07:12 Exam: Gen: no acute distress, A&O x3 HEENT: dry mucus membranes Heart: RRR, no murmurs Lungs: clear to auscultation bilaterally Abdomen: soft, non-tender Extremities: wound vac and dressing on left LE, no edema on right LE Vascular: pulses +2 in all extremities Neuro: no facial droop, CN II-XII intact, sensation intact in all extremities, no focal weakness Gonzalez catheter - Assessment and Plan (1) TIA (transient ischemic attack) Current Visit: Yes Status: Acute Assessment and Plan: Resolved CT normal MRI showed vertebral artery stenosis Echo pending Carotid US prelim report showed non-stenotic plaques bilaterally LDL 65 Urine drug screen negative PT/OT consulted, will remove gonzalez catheter if mobility approved by PT/OT Continue aspirin 325mg daily Neurology signed off (2) Venous ulcer of leg Current Visit: No Status: Acute Assessment and Plan: ID consulted Patient has wound vac with dressing that gets changed x2/week Infected with Pseudomonas aeruginosa Patient had fever of [address] to rule out osteomyelitis Cefepime discontinued Started on IV meropenem (3) Hyponatremia Current Visit: Yes Status: Acute Assessment and Plan: Likely 2/2 polydipsia with little food intake Na 126 > 124 today Ordered Q6hr Na checks Continue 0.9% NS Continue cardiac diet (4) PETR (acute kidney injury) Current Visit: Yes Status: Resolved Assessment and Plan: Resolved Cr 0.83 today (5) Rash Current Visit: Yes Status: Acute Assessment and Plan: Patient states rash is no better today Likely 2/2 bactrim Will consider cefepime as a cause if rash doesn't improve Continue to monitor (6) Hypokalemia Current Visit: Yes Status: Acute Assessment and Plan: Likely 2/2 polydipsia K decreased 3.4 > 3.0 today Replaced 40 meq K Continue to monitor DVT Prophylaxis: Sub Q heparin - Time Spent with Patient Total time spent is greater than 50% in coordination of care (as documented) at patient's floor/unit and/or counseling patient: 25 - 35 minutes Plan of Care Discussed with: patient Internal Medicine: Result - Labs CBC & Chem 7: 04/11/18 03:55 04/11/18 09:58 Labs: Short CBC 04/11/18 Range/Units 03:55 WBC 4.6 (4.3-11.1) K/mcL Hgb 12.0 D (11.5-15.4) g/dL Hct 33.9 L (35.3-44.9) % Plt Count 175 (140-400) K/mcL Neutrophils # 3.7 (1.6-8.9) K/mcL BMP 04/10/18 04/11/18 22:14 03:55 Sodium 126 L 124 L Potassium 3.4 L 3.0 L Chloride 98 100 Carbon Dioxide 16 L 13 L BUN 67 H 59 H Creatinine 1.01 0.83 Glucose 102 146 H Calcium 9.1 8.5 L Liver Function 04/11/18 Range/Units 03:55 Total Bilirubin 0.5 (0.3-1.0) mg/dL AST 23 (13-39) Units/L ALT 25 (7-52) Units/L Alkaline Phosphatase 43 (34-104) Units/L Albumin 3.0 L (3.5-5.7) g/dL - ABG Interpretation ABG results: PT/INR, D-dimer PT 13.0 Seconds (9.4-12.1) H 04/10/18 10:09 Consult Discharge Plan - Plan Referrals: Donald Anderson DO [Partnered Physician] - 05/07/18 1:00 pm Elaina Andrade, ASSISTANT IN NURSING [Primary Care Provider] - 04/21/18 12:30 pm <Andria Riddle - Last Filed: 04/11/18 21:13> Hospitalist Progress Note - Encounter Date of Encounter: 04/11/18 - Exam Vitals: Temp Pulse Resp BP Pulse Ox 97.9 F 59 22 112/75 97 04/11/18 20:34 04/11/18 20:34 04/11/18 20:34 04/11/18 20:34 04/11/18 20:34 - Assessment and Plan (1) Venous ulcer of leg Current Visit: No Status: Acute (2) Hyponatremia Current Visit: Yes Status: Acute (3) TIA (transient ischemic attack) Current Visit: Yes Status: Acute (4) PETR (acute kidney injury) Current Visit: Yes Status: Resolved (5) Rash Current Visit: Yes Status: Acute (6) Hypokalemia Current Visit: Yes Status: Acute - Time Spent with Patient Total time spent is greater than 50% in coordination of care (as documented) at patient's floor/unit and/or counseling patient: Internal Medicine: Result - Labs CBC & Chem 7: 04/11/18 03:55 04/11/18 09:58 Labs: Short CBC 04/11/18 Range/Units 03:55 WBC 4.6 (4.3-11.1) K/mcL Hgb 12.0 D (11.5-15.4) g/dL Hct 33.9 L (35.3-44.9) % Plt Count 175 (140-400) K/mcL Neutrophils # 3.7 (1.6-8.9) K/mcL BMP 04/10/18 04/11/18 04/11/18 22:14 03:55 09:58 Sodium 126 L 124 L 127 L Potassium 3.4 L 3.0 L Chloride 98 100 Carbon Dioxide 16 L 13 L BUN 67 H 59 H Creatinine 1.01 0.83 Glucose 102 146 H Calcium 9.1 8.5 L Liver Function 04/11/18 Range/Units 03:55 Total Bilirubin 0.5 (0.3-1.0) mg/dL AST 23 (13-39) Units/L ALT 25 (7-52) Units/L Alkaline Phosphatase 43 (34-104) Units/L Albumin 3.0 L (3.5-5.7) g/dL - ABG Interpretation ABG results: PT/INR, D-dimer PT 13.0 Seconds (9.4-12.1) H 04/10/18 10:09 - Impressions Impressions Chest CT 04/11/18 15:21 IMPRESSION: No acute chest abnormality. No evidence of dominant nodules or masses. Patchy areas of interstitial lung disease and fibrosis worse in the lower lobes. No evidence of pleural disease. No evidence of significant adenopathy. Chronic compression of T5 and moderate multilevel degenerative disc disease in the thoracic spine. D/ / 04/11/2018 18:30:54 Lacey Farias MD / [facility] Interpreting Provider: Lacey Farias MD Lower Extremity CT 04/11/18 15:21 IMPRESSION: 1. Soft tissue wound along the medial soft tissues distally with overlying wound VAC in place. Underlying subcutaneous edema present. Correlate clinically for cellulitis. No organized drainable fluid collection identified. 2. Very subtle periosteal reaction involving the distal diaphysis of the tibia adjacent to the soft tissue wound. No definite osseous erosive change identified. Early changes of osteomyelitis cannot be excluded on CT. MRI of the distal tibia and fibula could be obtained for further evaluation. 3. Osteopenia. 4. Mild tricompartmental osteoarthritis of the left knee and mild osteoarthritis of the left hindfoot and midfoot. D/ / Evan Brand MD / Evan Brand MD Interpreting Provider: Evan Brand MD - Attending Attestation I examined this patient and my medical decision-making was reviewed with the Resident Physician Dr. Pérez. I agree with the documented findings, disposition and treatment plan as described except to the extent set forth below. <Cain Fuchs - Last Filed: 04/11/18 16:41> (2) Venous ulcer of leg Qualifiers: Laterality: left Qualified Code(s): I83.029 - Varicose veins of left lower extremity with ulcer of unspecified site; L97.929 - Non-pressure chronic ulcer of unspecified part of left lower leg with unspecified severity; L97.929 - Non- pressure chronic ulcer of unspecified part of left lower leg with unspecified severity; L97.929 - Non-pressure chronic ulcer of unspecified part of left lower leg with unspecified severity; L97.929 - Non-pressure chronic ulcer of unspecified part of left lower leg with unspecified severity <Andria Riddle - Last Filed: 04/11/18 21:13> (1) Venous ulcer of leg Qualifiers: Laterality: left Qualified Code(s): I83.029 - Varicose veins of left lower extremity with ulcer of unspecified site; L97.929 - Non-pressure chronic ulcer of unspecified part of left lower leg with unspecified severity; L97.929 - Non- pressure chronic ulcer of unspecified part of left lower leg with unspecified severity; L97.929 - Non-pressure chronic ulcer of unspecified part of left lower leg with unspecified severity; L97.929 - Non-pressure chronic ulcer of unspecified part of left lower leg with unspecified severity
[2018-04-11] MEDS ORDERED: 0.9 % Sodium Chloride 500 ML IVC PRN (13:06)
--- NOTE | 2018-04-11 13:53 | Neurology Progress Note ---
Date of Encounter: 04/11/18 Time of Encounter: 11:00 Assessment and Plan (1) TIA (transient ischemic attack) Current Visit: Yes Status: Acute Patient is doing well and no neurological complaints since admission. Is waiting for carotid artery duplex and echo to complete as a TIA work up. Do not feel that she needs CT angio of the brain since it would not change the management. Await Echo and carotid artery duplex and if these are returning unremarkable no further testing will be recommended. She takes aspirin 81mg prn prior to admission and i advised her to take aspirin 81mg daily regularly. Please continue medical and supportive care. Will sign off at this time and will re-evaluate the patient at your request. Subjective Principal diagnosis: TIA Interval history: Patient seen and examined. She is feeling better now and denies significant neurological discomforts. She has no headaches, no dizziness. She is fluent in her speech and has no facial droop. She has diffuse rashes in her limbs. She states that she has not been feeling this good for a while. She takes aspirin 81mg only on prn basis in the past. echo and carotid artery duplex still pending. Objective - Constitutional Vitals: Temp Pulse Resp BP Pulse Ox 98.6 F 78 16 100/69 94 04/11/18 12:00 04/11/18 12:00 04/11/18 12:00 04/11/18 13:45 04/11/18 11:36 - Neurological Exam Sensorimotor examination: Present: intact Motor Examination: Present: other (Due to the left leg pain, muscle strength can not be accurated ly assessed. ) Motor examination - right side: 5/5: deltoids, biceps, triceps, wrist flexion, wrist extension, reducing salon attendant, hip flexors, tibialis Anterior, quadriceps, toe extension (EHL), plantarflexion Motor examination - left side: 5/5: deltoids, biceps, triceps, wrist flexion, wrist extension, reducing salon attendant, quadriceps, tibialis Anterior Sensation intact: Present: intact Posture: Present: other (None) Reflex and gait examination: intact Reflexes: Biceps: 2+, Triceps: 2+, Brachioradialis: 2+, Patella: 2+, Achilles: 2 + Mental Status Examination: Present: awake, alert, oriented to person, oriented to place, oriented to time, follows commands appropriately, answers questions appropriately, no agnosia, no aphasia, no aproxia Cranial nerve examination: Present: PERRL, EOMI, visual castro intact, corneal reflexes brisk symmetrically, sensory to face intact, mastication intact, no facial asymmetry is present, no dysarthria, hearing is intact symmetrically, soft palate elevates bilaterally upon phonation, gag reflex intact, flexes SCM and trapezius muscles symmetrically with full power, tongue protrudes midline, no atrophy or facial fasiculations present Results - Laboratory Findings CBC and BMP: 04/11/18 03:55 04/11/18 09:58 Abnormal lab findings: Abnormal lab results RBC 3.68 M/mcL (3.82-4.97) L 04/11/18 03:55 Hct 33.9 % (35.3-44.9) L 04/11/18 03:55 Lymphocytes # 0.5 K/mcL (0.6-4.6) L 04/11/18 03:55 PT 13.0 Seconds (9.4-12.1) H 04/10/18 10:09 APTT 25.9 Seconds (26.0-36.0) L 04/10/18 10:09 Sodium 127 mEq/L (136-145) L 04/11/18 09:58 Potassium 3.0 mEq/L (3.5-5.1) L 04/11/18 03:55 Carbon Dioxide 13 mEq/L (23-29) L 04/11/18 03:55 BUN 59 mg/dL (8-23) H 04/11/18 03:55 BUN/Creatinine Ratio 71 (6-26) H 04/11/18 03:55 Glucose 146 mg/dL (70-105) H 04/11/18 03:55 POC Glucose 149 mg/dL (70-99) H 04/10/18 10:08 Calculated Osmolality 277 (280-300) L 04/11/18 03:55 Calcium 8.5 mg/dL (8.6-10.3) L 04/11/18 03:55 Serum Total Protein 5.8 g/dL (6.4-8.9) L 04/11/18 03:55 Albumin 3.0 g/dL (3.5-5.7) L 04/11/18 03:55 HDL Cholesterol 18 mg/dL (40-59) L 04/11/18 03:55 Cholesterol/HDL Ratio 5.9 (0-4.9) H 04/11/18 03:55 Urine Clarity Slightly Cloudy (Clear) A 04/10/18 14:00 Urine Protein 100 mg/dL (Neg-Trace) H 04/10/18 14:00 Urine Blood Moderate (Negative) H 04/10/18 14:00 Urine Microscopic WBC 3-5 per hpf (0-3) H 04/10/18 14:00 Ur Squamous Epith Cells Many per lpf (None-Few) H 04/10/18 14:00 Urine Bacteria Many per hpf (None-Few) H 04/10/18 14:00 Consult Discharge Plan - Plan Referrals: Donald Anderson DO [Partnered Physician] - 05/07/18 1:00 pm Elaina Andrade CNP [Primary Care Provider] - 04/21/18 12:30 pm
--- NOTE | 2018-04-11 14:29 | Infectious Disease Progress No ---
Date of Encounter: 04/11/18 Time of Encounter: 14:27 - Assessment and Plan (1) Venous ulcer of leg Current Visit: No Status: Acute infected with pseudomonas aeruginosa currently on cefepime started on 03/19 infection improved; plan was to treat for 4-6 weeks depending on clinical picture wound vac to be changed saturday, will evaluate then and make further recommendations. continue cefepime; CrCl around 28 on 04/10 which improved to normal creatinine clearance today Dose adjust cefepime to 2 g IV every 12 hours Duration of treatment depends on clinical picture but likely for at least another week Monitor labs and for drug toxicity Qualifiers: Laterality: left Qualified Code(s): I83.029 - Varicose veins of left lower extremity with ulcer of unspecified site; L97.929 - Non-pressure chronic ulcer of unspecified part of left lower leg with unspecified severity; L97.929 - Non- pressure chronic ulcer of unspecified part of left lower leg with unspecified severity; L97.929 - Non-pressure chronic ulcer of unspecified part of left lower leg with unspecified severity; L97.929 - Non-pressure chronic ulcer of unspecified part of left lower leg with unspecified severity (2) Facial droop Current Visit: Yes Status: Acute Resolved (3) Rash Current Visit: Yes Status: Acute secondary to Bactrim most likely antibiotics stopped on Saturday expect rash to start improving start zyrtec and ranitidine (4) Allergy to antibiotic Current Visit: Yes Status: Acute (5) PETR (acute kidney injury) Current Visit: Yes Status: Resolved resolved (6) Cerebrovascular accident Current Visit: Yes Status: Acute Qualifiers: CVA mechanism: unspecified Qualified Code(s): I63.9 - Cerebral infarction, unspecified (7) HTN (hypertension) Current Visit: Yes Status: Acute Qualifiers: Hypertension type: essential hypertension Qualified Code(s): I10 - Essential (primary) hypertension (8) Hyponatremia Current Visit: Yes Status: Acute - Subjective Interval history: Patient seen and examined. Appears comfortable. Laying in bed. No acute distress. Neurological symptoms fully resolved. Denies any chest pain or shortness of breath. Rash continues to be there but I feel that it is improved from previously. Patient vital signs are stable afebrile Labs noted kidney function significantly improved Infect Dis PN-Objective Data - Labs CBC & Chem 7: 04/11/18 03:55 04/11/18 09:58 Labs: Laboratory Results - last 24 hr 04/10/18 04/10/18 04/11/18 20:05 22:14 03:55 WBC 4.6 RBC 3.68 L Hgb 12.0 D Hct 33.9 L MCV 92.1 MCH 32.6 MCHC 35.4 RDW 13.1 Plt Count 175 MPV 11.2 Immature Gran % 0.4 Seg Neutrophils % 80.4 Lymphocytes % 10.6 Monocytes % 6.9 Eosinophils % 1.7 Basophils % 0.0 Neutrophils # 3.7 Lymphocytes # 0.5 L Monocytes # 0.3 Eosinophils # 0.1 Basophils # 0.0 Sodium 126 L Potassium 3.4 L Chloride 98 Carbon Dioxide 16 L BUN 67 H Creatinine 1.01 Est GFR ( Amer) > 60 Est GFR (Non-Af Amer) 55 L BUN/Creatinine Ratio 66 H Glucose 102 Calculated Osmolality 282 Calcium 9.1 Total Bilirubin AST ALT Alkaline Phosphatase Serum Total Protein Albumin Globulin Albumin/Globulin Ratio Triglycerides Cholesterol LDL Cholesterol, Calc VLDL Cholesterol, Calc HDL Cholesterol Cholesterol/HDL Ratio Urine Opiates Screen Negative Ur Barbiturates Screen Negative Ur Phencyclidine Scrn Negative Ur Amphetamines Screen Negative U Benzodiazepines Scrn Negative Urine Cocaine Screen Negative U Marijuana (THC) Screen Negative Ur Drug Screen Interp See Below 04/11/18 04/11/18 03:55 09:58 WBC RBC Hgb Hct MCV MCH MCHC RDW Plt Count MPV Immature Gran % Seg Neutrophils % Lymphocytes % Monocytes % Eosinophils % Basophils % Neutrophils # Lymphocytes # Monocytes # Eosinophils # Basophils # Sodium 124 L 127 L Potassium 3.0 L Chloride 100 Carbon Dioxide 13 L BUN 59 H Creatinine 0.83 Est GFR ( Amer) > 60 Est GFR (Non-Af Amer) > 60 BUN/Creatinine Ratio 71 H Glucose 146 H Calculated Osmolality 277 L Calcium 8.5 L Total Bilirubin 0.5 AST 23 ALT 25 Alkaline Phosphatase 43 Serum Total Protein 5.8 L Albumin 3.0 L Globulin 2.8 Albumin/Globulin Ratio 1.1 Triglycerides 120 Cholesterol 107 LDL Cholesterol, Calc 65 VLDL Cholesterol, Calc 24 HDL Cholesterol 18 L Cholesterol/HDL Ratio 5.9 H Urine Opiates Screen Ur Barbiturates Screen Ur Phencyclidine Scrn Ur Amphetamines Screen U Benzodiazepines Scrn Urine Cocaine Screen U Marijuana (THC) Screen Ur Drug Screen Interp Exam - Constitutional Vitals: Temp Pulse Resp BP Pulse Ox 98.6 F 78 16 100/69 94 04/11/18 12:00 04/11/18 12:00 04/11/18 12:00 04/11/18 13:45 04/11/18 11:36 General appearance: no acute distress, no febrile - Respiratory Respiratory exam: Present: CTAB. Absent: wheezes - Cardiovascular Cardiovascular exam: Present: RRR, +S1, +S2 - GI/Abdominal GI/Abdominal exam: Present: soft. Absent: tenderness - Skin Additional comments: Maculopapular rash including the face trunk and extremities but I feel that it is mildly improved Consult Discharge Plan - Plan Referrals: Donald Anderson DO [Partnered Physician] - 05/07/18 1:00 pm Elaina Andrade CNP [Primary Care Provider] - 04/21/18 12:30 pm
[2018-04-11] MEDS: Famotidine 20 MG TABLET PO SCH ×2 (15:48→19:54)
[2018-04-11] MEDS: Loratadine 10 MG TABLET PO SCH (15:48)
[2018-04-11] MEDS: Meropenem 1,000 MG in Water for inj. (sterile) 20 ML 10 ML IVP SCH (16:35)
[2018-04-11] MEDS: *HR* Heparin 5,000 UNIT/ML VIAL SQ SCH (18:16)
[2018-04-12] MEDS: Meropenem 1,000 MG in Water for inj. (sterile) 20 ML 10 ML IVP SCH ×4 (00:08→23:51)
[2018-04-12] MEDS: Acetaminophen 325 MG TABLET PO PRN (00:54)
[2018-04-12] MEDS: 0.9 % Sodium Chloride 1,000 ML IVC SCH ×3 (00:56→23:52)
[2018-04-12] MEDS: *HR* Heparin 5,000 UNIT/ML VIAL SQ SCH ×2 (05:40→17:48)
[2018-04-12 05:54] LABS: Basophils % 0.2 %; Eosinophils # 0.3 K/mcL (0.0-0.6); Eosinophils % 7.1 %; Hematocrit 32.2 % (35.3-44.9); Hemoglobin 11.3 g/dL (11.5-15.4); Immature Granulocytes % 0.2 % (0-4); Lymphocytes # 0.6 K/mcL (0.6-4.6); Lymphocytes % 13.2 %; Mean Corpuscular HGB Conc 35.1 g/dL (31.6-35.5); Mean Corpuscular Hemoglobin 32.3 pg (28.0-33.3); Monocytes # 0.3 K/mcL (0.0-1.3); Platelet Count 173 K/mcL (140-400); Red Cell Distribution Width 13.3 % (11.5-14.5); Segmented Neutrophils % 71.3 %
[2018-04-12 06:10] LABS: BUN/Creatinine Ratio 66 (6-26); Blood Urea Nitrogen 43 mg/dL (8-23); Calcium 8.7 mg/dL (8.6-10.3); Carbon Dioxide 15 mEq/L (23-29); Chloride 107 mEq/L (98-107); Glucose 101 mg/dL (70-105); Osmolality,Calculated 279 (280-300); Potassium 3.3 mEq/L (3.5-5.1); Sodium 129 mEq/L (136-145); eGFR For Non-African Americans > 60 (> 60)
[2018-04-12] MEDS: Loratadine 10 MG TABLET PO SCH (07:53)
[2018-04-12] MEDS: Aspirin 325 MG TABLET PO SCH (07:53)
[2018-04-12] MEDS: predniSONE 20 MG TABLET PO SCH (07:53)
[2018-04-12] MEDS: Famotidine 20 MG TABLET PO SCH ×2 (07:53→20:53)
--- NOTE | 2018-04-12 14:56 | Internal Med Progress Note ---
Hospitalist Progress Note - Encounter Date of Encounter: 04/12/18 Time of Encounter: 14:56 - Subjective Interval History: No acute events. She states rash is unchanged. She denies fevers/chills, n/v, pain. - Exam Vitals: Temp Pulse Resp BP Pulse Ox 98.8 F 81 18 103/66 98 04/12/18 12:01 04/12/18 12:01 04/12/18 12:01 04/12/18 13:39 04/12/18 12:01 Exam: Gen: no acute distress, A&O x3 HEENT: dry mucus membranes Heart: RRR, no murmurs Lungs: clear to auscultation bilaterally Abdomen: soft, non-tender Extremities: wound vac and dressing on left LE, no edema on right LE Vascular: pulses +2 in all extremities Neuro: no facial droop, CN II-XII intact, sensation intact in all extremities, no focal weakness - Assessment and Plan (1) TIA (transient ischemic attack) Current Visit: Yes Status: Acute Assessment and Plan: CT normal MRI showed vertebral artery stenosis Echo pending Carotid US prelim report showed non-stenotic plaques bilaterally LDL 65 Urine drug screen negative PT/OT consulted, will remove gonzalez catheter if mobility approved by PT/OT Continue aspirin 325mg daily Neurology signed off Symptoms have resolved No further intervention needed (2) Venous ulcer of leg Current Visit: No Status: Acute Assessment and Plan: ID consulted Patient has wound vac with dressing that gets changed x2/week Infected with Pseudomonas aeruginosa Patient had fever of [address] to rule out osteomyelitis Cefepime discontinued in case this is cause of rash, and she is now on meropenem (3) Hyponatremia Current Visit: Yes Status: Acute Assessment and Plan: Sodium 123 on admission. Likely from dehydration and diuretics. Diuretic held on admission and she has been given IV fluids with improvement of sodium levels. Continue 0.9% NS (4) PETR (acute kidney injury) Current Visit: Yes Status: Resolved Assessment and Plan: Resolved (5) Rash Current Visit: Yes Status: Acute Assessment and Plan: There is no improvement in rash for several days. Likely 2/2 bactrim that shew as taking prior to admission. Cefepime possible cause as well and so it was discontinued and now on meropenem. Continue Claritin, Pepcid Continue Prednisone (6) Hypokalemia Current Visit: Yes Status: Acute Assessment and Plan: replace as needed. - Time Spent with Patient Total time spent is greater than 50% in coordination of care (as documented) at patient's floor/unit and/or counseling patient: Internal Medicine: Result - Labs CBC & Chem 7: 04/12/18 05:20 04/12/18 05:20 Labs: Short CBC 04/12/18 Range/Units 05:20 WBC 4.2 L (4.3-11.1) K/mcL Hgb 11.3 L (11.5-15.4) g/dL Hct 32.2 L (35.3-44.9) % Plt Count 173 (140-400) K/mcL Neutrophils # 3.0 (1.6-8.9) K/mcL BMP 04/12/18 05:20 Sodium 129 L Potassium 3.3 L Chloride 107 Carbon Dioxide 15 L BUN 43 H Creatinine 0.65 Glucose 101 Calcium 8.7 - ABG Interpretation ABG results: PT/INR, D-dimer PT 13.0 Seconds (9.4-12.1) H 04/10/18 10:09 - Impressions Impressions Chest CT 04/11/18 15:21 IMPRESSION: No acute chest abnormality. No evidence of dominant nodules or masses. Patchy areas of interstitial lung disease and fibrosis worse in the lower lobes. No evidence of pleural disease. No evidence of significant adenopathy. Chronic compression of T5 and moderate multilevel degenerative disc disease in the thoracic spine. D/ / 04/11/2018 18:30:54 Lacey Farias MD / [facility] Interpreting Provider: Lacey Farias MD Lower Extremity CT 04/11/18 15:21 IMPRESSION: 1. Soft tissue wound along the medial soft tissues distally with overlying wound VAC in place. Underlying subcutaneous edema present. Correlate clinically for cellulitis. No organized drainable fluid collection identified. 2. Very subtle periosteal reaction involving the distal diaphysis of the tibia adjacent to the soft tissue wound. No definite osseous erosive change identified. Early changes of osteomyelitis cannot be excluded on CT. MRI of the distal tibia and fibula could be obtained for further evaluation. 3. Osteopenia. 4. Mild tricompartmental osteoarthritis of the left knee and mild osteoarthritis of the left hindfoot and midfoot. D/ / Evan Brand MD / Evan Brand MD Interpreting Provider: Evan Brand MD Consult Discharge Plan - Plan Referrals: Donald Anderson DO [Partnered Physician] - 05/07/18 1:00 pm Elaina Andrade, SPOUT POSITIONER [Primary Care Provider] - 04/21/18 12:30 pm (2) Venous ulcer of leg Qualifiers: Laterality: left Qualified Code(s): I83.029 - Varicose veins of left lower extremity with ulcer of unspecified site; L97.929 - Non-pressure chronic ulcer of unspecified part of left lower leg with unspecified severity; L97.929 - Non- pressure chronic ulcer of unspecified part of left lower leg with unspecified severity; L97.929 - Non-pressure chronic ulcer of unspecified part of left lower leg with unspecified severity; L97.929 - Non-pressure chronic ulcer of unspecified part of left lower leg with unspecified severity
[2018-04-13 05:42] LABS: Basophils % 0.3 %; Eosinophils # 0.2 K/mcL (0.0-0.6); Hematocrit 37.3 % (35.3-44.9); Hemoglobin 13.1 g/dL (11.5-15.4); Immature Granulocytes % 0.6 % (0-4); Lymphocytes # 0.9 K/mcL (0.6-4.6); Lymphocytes % 27.5 %; Mean Corpuscular HGB Conc 35.1 g/dL (31.6-35.5); Mean Corpuscular Hemoglobin 33.2 pg (28.0-33.3); Mean Corpuscular Volume 94.4 fL (83.0-100.0); Mean Platelet Volume 11.1 fL (9.4-12.4); Monocytes # 0.4 K/mcL (0.0-1.3); Neutrophils # 1.7 K/mcL (1.6-8.9); Platelet Count 189 K/mcL (140-400); Red Blood Count 3.95 M/mcL (3.82-4.97); Red Cell Distribution Width 13.2 % (11.5-14.5); Segmented Neutrophils % 53.6 %
[2018-04-13 05:58] LABS: BUN/Creatinine Ratio 51 (6-26); Blood Urea Nitrogen 31 mg/dL (8-23); Calcium 9.1 mg/dL (8.6-10.3); Carbon Dioxide 15 mEq/L (23-29); Chloride 110 mEq/L (98-107); Glucose 92 mg/dL (70-105); Osmolality,Calculated 280 (280-300); Potassium 3.9 mEq/L (3.5-5.1); Sodium 132 mEq/L (136-145); eGFR For Non-African Americans > 60 (> 60)
[2018-04-13 06:15] LABS: Platelet Estimate Normal (Normal); Reactive Lymphocytes Present (Not Present)
[2018-04-13] MEDS: *HR* Heparin 5,000 UNIT/ML VIAL SQ SCH ×2 (07:34→17:27)
[2018-04-13] MEDS: Loratadine 10 MG TABLET PO SCH (08:16)
[2018-04-13] MEDS: Aspirin 325 MG TABLET PO SCH (08:16)
[2018-04-13] MEDS: Meropenem 1,000 MG in Water for inj. (sterile) 20 ML 10 ML IVP SCH ×2 (08:16→14:45)
[2018-04-13] MEDS: Famotidine 20 MG TABLET PO SCH ×2 (08:17→20:51)
[2018-04-13] MEDS: predniSONE 20 MG TABLET PO SCH (08:17)
[2018-04-13] MEDS: 0.9 % Sodium Chloride 1,000 ML IVC SCH ×2 (08:17→18:20)
--- NOTE | 2018-04-13 11:00 | Internal Med Progress Note ---
Hospitalist Progress Note - Encounter Date of Encounter: 04/13/18 Time of Encounter: 11:00 - Subjective Interval History: No acute events. She states rash is unchanged. She denies fevers/chills, n/v, pain. - Exam Vitals: Temp Pulse Resp BP Pulse Ox 97.8 F 75 18 104/60 98 04/13/18 06:50 04/13/18 06:50 04/13/18 06:50 04/13/18 06:50 04/13/18 06:50 Exam: Gen: no acute distress, A&O x3 HEENT: MMM Heart: RRR, no murmurs Lungs: clear to auscultation bilaterally Abdomen: soft, non-tender Extremities: wound vac and dressing on left LE, no edema on right LE Vascular: pulses +2 in all extremities Skin: Diffuse blanching erythema along both lower extremities mostly. no drainage from wound vac Neuro: no facial droop, CN II-XII intact, sensation intact in all extremities, no focal weakness - Assessment and Plan (1) TIA (transient ischemic attack) Current Visit: Yes Status: Acute Assessment and Plan: CT normal MRI showed vertebral artery stenosis Echo pending Carotid US prelim report showed non-stenotic plaques bilaterally LDL 65 Urine drug screen negative PT/OT consulted, will remove gonzalez catheter if mobility approved by PT/OT Continue aspirin 325mg daily Neurology signed off Symptoms have resolved No further intervention needed (2) Venous ulcer of leg Current Visit: No Status: Acute Assessment and Plan: ID consulted Patient has wound vac with dressing that gets changed x2/week Infected with Pseudomonas aeruginosa Patient had fever of [address] to rule out osteomyelitis Cefepime discontinued in case this is cause of rash, and she is now on meropenem (3) Hyponatremia Current Visit: Yes Status: Acute Assessment and Plan: Sodium 123 on admission. Likely from dehydration and diuretics. Diuretic held on admission and she has been given IV fluids with improvement of sodium levels. Continue 0.9% NS Today is 132 (4) PETR (acute kidney injury) Current Visit: Yes Status: Resolved Assessment and Plan: Resolved (5) Rash Current Visit: Yes Status: Acute Assessment and Plan: There is no improvement in rash for several days. Likely 2/2 bactrim that shew as taking prior to admission. Cefepime possible cause as well and so it was discontinued and now on meropenem. Continue Claritin, Pepcid Continue Prednisone (6) Hypokalemia Current Visit: Yes Status: Acute Assessment and Plan: replace as needed. - Time Spent with Patient Total time spent is greater than 50% in coordination of care (as documented) at patient's floor/unit and/or counseling patient: Internal Medicine: Result - Labs CBC & Chem 7: 04/13/18 05:21 04/13/18 05:21 Labs: Short CBC 04/13/18 Range/Units 05:21 WBC 3.2 L (4.3-11.1) K/mcL Hgb 13.1 D (11.5-15.4) g/dL Hct 37.3 (35.3-44.9) % Plt Count 189 (140-400) K/mcL Neutrophils # 1.7 (1.6-8.9) K/mcL BMP 04/13/18 05:21 Sodium 132 L Potassium 3.9 Chloride 110 H Carbon Dioxide 15 L BUN 31 H Creatinine 0.61 Glucose 92 Calcium 9.1 - ABG Interpretation ABG results: PT/INR, D-dimer PT 13.0 Seconds (9.4-12.1) H 04/10/18 10:09 Consult Discharge Plan - Plan Referrals: Donald Anderson DO [Partnered Physician] - 05/07/18 1:00 pm Elaina Andrade CNP [Primary Care Provider] - 04/21/18 12:30 pm (2) Venous ulcer of leg Qualifiers: Laterality: left Qualified Code(s): I83.029 - Varicose veins of left lower extremity with ulcer of unspecified site; L97.929 - Non-pressure chronic ulcer of unspecified part of left lower leg with unspecified severity; L97.929 - Non- pressure chronic ulcer of unspecified part of left lower leg with unspecified severity; L97.929 - Non-pressure chronic ulcer of unspecified part of left lower leg with unspecified severity; L97.929 - Non-pressure chronic ulcer of unspecified part of left lower leg with unspecified severity
[2018-04-14] MEDS: Meropenem 1,000 MG in Water for inj. (sterile) 20 ML 10 ML IVP SCH ×4 (00:42→23:51)
[2018-04-14] MEDS: Benzonatate 100 MG CAPSULE PO PRN ×2 (04:05→19:57)
[2018-04-14] MEDS: *HR* Heparin 5,000 UNIT/ML VIAL SQ SCH ×2 (04:06→16:28)
[2018-04-14] MEDS: 0.9 % Sodium Chloride 1,000 ML IVC SCH (04:06)
[2018-04-14 05:40] LABS: Basophils % 0.5 %; Eosinophils # 0.1 K/mcL (0.0-0.6); Eosinophils % 4.4 %; Hematocrit 30.7 % (35.3-44.9); Hemoglobin 10.7 g/dL (11.5-15.4); Lymphocytes # 1.1 K/mcL (0.6-4.6); Lymphocytes % 54.7 %; Mean Corpuscular HGB Conc 34.9 g/dL (31.6-35.5); Mean Corpuscular Hemoglobin 32.3 pg (28.0-33.3); Mean Corpuscular Volume 92.7 fL (83.0-100.0); Mean Platelet Volume 10.8 fL (9.4-12.4); Monocytes # 0.3 K/mcL (0.0-1.3); Monocytes % 14.3 %; Neutrophils # 0.5 K/mcL (1.6-8.9); Platelet Count 184 K/mcL (140-400); Red Blood Count 3.31 M/mcL (3.82-4.97); Red Cell Distribution Width 13.4 % (11.5-14.5); Segmented Neutrophils % 26.1 %
[2018-04-14 05:59] LABS: BUN/Creatinine Ratio 42 (6-26); Blood Urea Nitrogen 22 mg/dL (8-23); Calcium 8.6 mg/dL (8.6-10.3); Carbon Dioxide 17 mEq/L (23-29); Chloride 110 mEq/L (98-107); Glucose 98 mg/dL (70-105); Osmolality,Calculated 277 (280-300); Platelet Estimate Normal (Normal); Potassium 3.8 mEq/L (3.5-5.1); Sodium 132 mEq/L (136-145); eGFR For Non-African Americans > 60 (> 60)
[2018-04-14] MEDS: Loratadine 10 MG TABLET PO SCH (08:33)
[2018-04-14] MEDS: Famotidine 20 MG TABLET PO SCH ×2 (08:33→19:51)
[2018-04-14] MEDS: Aspirin 325 MG TABLET PO SCH (08:33)
[2018-04-14] MEDS: predniSONE 20 MG TABLET PO SCH (08:33)
[2018-04-14 09:00] LABS: C-Reactive Protein 39 mg/L (Less than 10)
--- NOTE | 2018-04-14 11:38 | Infectious Disease Progress No ---
Date of Encounter: 04/14/18 Time of Encounter: 10:20 - Assessment and Plan (1) Fever Current Visit: Yes Status: Acute Tmax 100.3 in the last 24 hours. Etiology unclear. Clinically, the patient appears to have improved. Continue to monitor closely. Qualifiers: Fever type: unspecified Qualified Code(s): R50.9 - Fever, unspecified (2) Leukopenia Current Visit: Yes Status: Acute Etiology unclear: sepsis vs. medication vs. other. ANC 520 today. Recommend Hem/Onc to evaluate. Qualifiers: Leukopenia type: neutropenia Neutropenia type: unspecified Qualified Code (s): D70.9 - Neutropenia, unspecified (3) Venous ulcer of leg Current Visit: No Status: Acute Location: LLE. Etiology: Venous stasis ulcer. Previous wound culture positive for PSEA. Started on Cefepime 03/19/18 after the patient developed a rash while on Bactrim. CT of the LLE showed a subtle periosteal reaction to the tibia adjacent to the soft tissue ulceration. ESR 44, CRP 74. Dressing changes per the wound care clinic recommendations. Continue Meropenem 1 gram IV Q8H. Duration of treatment depends on the clinical picture, but likely 4-6 weeks. Monitor renal function and dose-adjust antibiotics. Qualifiers: Laterality: left Qualified Code(s): I83.029 - Varicose veins of left lower extremity with ulcer of unspecified site; L97.929 - Non-pressure chronic ulcer of unspecified part of left lower leg with unspecified severity; L97.929 - Non- pressure chronic ulcer of unspecified part of left lower leg with unspecified severity; L97.929 - Non-pressure chronic ulcer of unspecified part of left lower leg with unspecified severity; L97.929 - Non-pressure chronic ulcer of unspecified part of left lower leg with unspecified severity (4) PETR (acute kidney injury) Current Visit: Yes Status: Resolved Resolved. (5) Allergy to antibiotic Current Visit: Yes Status: Acute Patient developed rash two weeks ago, presumptively to the Bactrim she was on previously. Patient reports that the rash is minimally improved, but not worse. Continue supportive care. (6) Facial droop Current Visit: Yes Status: Acute Likely secondary to TIA. Resolved (7) Hyponatremia Current Visit: Yes Status: Acute Management per the primary team. (8) Rash Current Visit: Yes Status: Acute Secondary to Bactrim most likely. Antibiotics stopped on Saturday. Expect rash to start improving. Currently on Claritin and Pepcid. (9) TIA (transient ischemic attack) Current Visit: Yes Status: Resolved (10) HTN (hypertension) Current Visit: Yes Status: Acute Qualifiers: Hypertension type: essential hypertension Qualified Code(s): I10 - Essential (primary) hypertension (11) Interstitial lung disease Current Visit: Yes Status: Acute CT chest showed findings consistent with interstitial lung disease and fibrosis. Etiology unclear. Recommend pulmonary to evaluate. - Subjective Interval history: Patient seen and examined. No acute events noted overnight. Patient states that overall she feels okay today. Denies fevers, chills, or rigors. Denies chest pain or shortness of breath, but reports a dry hacky cough. Denies nausea, vomiting, or diarrhea. States her stools have been a little loose. Reports relatively poor appetite. Denies abdominal pain or urinary complaints. Complains of pain at the site of the ulcer. Reports her skin rash is a little better, but not much, but it is not worse. She denies oral thrush. Infect Dis PN-Objective Data - Labs CBC & Chem 7: 04/14/18 05:22 04/14/18 05:22 Labs: Laboratory Results - last 24 hr 04/14/18 04/14/18 05:22 05:22 WBC 2.0 L RBC 3.31 L Hgb 10.7 L D Hct 30.7 L MCV 92.7 MCH 32.3 MCHC 34.9 RDW 13.4 Plt Count 184 MPV 10.8 Immature Gran % 0.0 Seg Neutrophils % 26.1 Lymphocytes % 54.7 Monocytes % 14.3 Eosinophils % 4.4 Basophils % 0.5 Neutrophils # 0.5 L Lymphocytes # 1.1 Monocytes # 0.3 Eosinophils # 0.1 Basophils # 0.0 Platelet Estimate Normal Sodium 132 L Potassium 3.8 Chloride 110 H Carbon Dioxide 17 L BUN 22 Creatinine 0.52 L Est GFR ( Amer) > 60 Est GFR (Non-Af Amer) > 60 BUN/Creatinine Ratio 42 H Glucose 98 Calculated Osmolality 277 L Calcium 8.6 C-Reactive Protein 39 H Cultures: Cultures 04/11/18 17:20 Blood Culture - Preliminary Peripheral Venipuncture Culture is incubating and being continuously monitored for growth. Final report to follow. 04/11/18 17:20 Blood Culture - Preliminary Peripheral Venipuncture Culture is incubating and being continuously monitored for growth. Final report to follow. Exam - Constitutional Vitals: Temp Pulse Resp BP Pulse Ox 98.0 F 89 17 112/65 98 04/14/18 07:42 04/14/18 08:44 04/14/18 07:42 04/14/18 07:42 04/14/18 07:42 General appearance: average body habitus, cooperative, no acute distress - Head Head exam: Present: atraumatic, normal inspection, normocephalic - Eye Eye exam: Present: EOMI, normal appearance, PERRL Pupils: Present: normal accommodation - ENT ENT exam: Present: mucous membranes moist - Neck Neck exam: Present: normal inspection - Respiratory Respiratory exam: Present: CTAB. Absent: rales, respiratory distress, rhonchi, wheezes - Cardiovascular Cardiovascular exam: Present: RRR, +S1, +S2 - GI/Abdominal GI/Abdominal exam: Present: normal bowel sounds, soft. Absent: distended, tenderness - Extremities Exam Extremities exam: Present: tenderness (Left calf). Absent: joint swelling, pedal edema Additional comments: Wound VAC dressing noted to the LLE without leak with 125mm Hg continuous suction. Serous drainage noted in the canister. Unable to assess surrounding skin due to pressure dressing. - Neurological Exam Neurological exam: Present: alert, oriented X3, no focal deficits - Psychiatric Psychiatric exam: Present: normal affect, normal mood - Skin Skin exam: Present: dry, intact, rash (Diffuse rash noted to the trunk and extremities.), warm Consult Discharge Plan - Plan Referrals: Donald Anderson DO [Partnered Physician] - 05/07/18 1:00 pm Elaina Andrade CNP [Primary Care Provider] - 04/21/18 12:30 pm - Attending Attestation I examined this patient and my medical decision-making was reviewed with the Resident Physician. I agree with the documented findings, disposition and treatment plan as described except to the extent set forth below.
--- NOTE | 2018-04-14 11:47 | Pulmonology Consult Note ---
<DaDonald - Last Filed: 04/14/18 13:12> Date of Encounter: 04/14/18 Time of Encounter: 11:45 Assessment and Plan (1) Abnormal CT scan of lung Current Visit: Yes Status: Acute With mild cough. Given the patient's constellation of symptoms including rash and joint swelling concern for rheumatologic source of the patient's symptoms as well as drug-induced findings given the patient's recent Bactrim use and given that her symptoms have started around this time. Patient did have some bilateral crackles in the bases however these improved with cough more indicative of atelectasis. Agree with rheumatologic/vasculitis workup as well as infectious workup, will add fungal serologies. We will add incentive spirometer to improve basilar aeration. Recommend outpatient follow-up in 2-3 weeks and patient will need repeat CT scan that can be discussed at her follow- up appointment. (2) Rash Current Visit: Yes Status: Acute (3) TIA (transient ischemic attack) Current Visit: Yes Status: Resolved (4) Venous ulcer of leg Current Visit: No Status: Acute Qualifiers: Laterality: left Qualified Code(s): I83.029 - Varicose veins of left lower extremity with ulcer of unspecified site; L97.929 - Non-pressure chronic ulcer of unspecified part of left lower leg with unspecified severity; L97.929 - Non- pressure chronic ulcer of unspecified part of left lower leg with unspecified severity; L97.929 - Non-pressure chronic ulcer of unspecified part of left lower leg with unspecified severity; L97.929 - Non-pressure chronic ulcer of unspecified part of left lower leg with unspecified severity History of Present Illness Consult date: 04/14/18 Requesting physician: Yulia Gates Reason for consult: abnormal CXR/CT Chief complaint: Facial Droop History of present illness: Patient is 60-year-old female with history of hypertension who presents with facial droop. Patient has a chronic left lower extremity wound is been treated as an outpatient with cefepime. This wound is been chronic over the last year and has been difficult to heal. She is recently started on Bactrim as an outpatient and had symptoms developed shortly after starting this including a diffuse itchy rash, dry cough. She went to see her salesperson automobiles and had some lethargy and facial droop since she was sent to the emergency department. At this point the patient feels much better. Her rash is still present and she states that this morning she had bilateral joint pain and swelling in her hands. She states she has never had anything like this before. She has had intermittent fevers. A nonproductive cough that has been present for about a week. She denies any shortness of breath and is normally pretty active and works as a teacher specialist. She is never had shortness of breath before. She denies any occupational exposures. She has never smoked but lives with her who is a smoker. She reports gardening as a hobby. Past Med Surg Social Fam HX - Past Medical History Medical history: hyperlipidemia, hypertension, venous stasis Additional medical history: Superficial Phlebitis Psychiatric history: no psych history - Past Surgical History Surgical History: appendectomy, orthopedic, other Additional surgical history: fx rt knee repair - Social History Smoking Status: Never smoker Smokeless Tobacco Status: No Alcohol use: none Drug use: none - Family History Mother Living Status: Hx Family Neurologic Disorders: Yes (CVA) Father Hx Family Endocrine Disorder: Yes (DM) Medications and Allergies Losartan/Hydrochlorothiazide [Losartan-Hctz 100-25 mg Tab] 1 tab PO DAILY [History] Cefepime HCl [Maxipime] 2 gm IV BID 04/10/18 [History] Ibuprofen [Motrin Ib] 400 mg PO BID PRN 04/10/18 [History] 3 Allergy/AdvReac Type Severity Reaction Status Date / Time sulfamethoxazole Allergy Hives Verified 04/10/18 11:33 [From Bactrim] trimethoprim [From Bactrim] Allergy Hives Verified 04/10/18 11:33 All Systems: The remainder of the systems were reviewed and are negative - Constitutional Constitutional: chills, fever(s), weakness - EENT Nose, mouth and throat: nasal congestion, sinus pressure, no nasal discharge, no sore throat - Cardiovascular Cardiovascular: no chest pain, no dyspnea, no leg edema - Respiratory Respiratory: cough, no dyspnea, no hemoptysis, no excessive phlegm production, no change in phlegm color - Gastrointestinal Gastrointestinal: no nausea, no vomiting - Genitourinary Genitourinary: no dysuria - Musculoskeletal Musculoskeletal: joint pain, joint swelling - Integumentary Integumentary: rash - Neurological Neurological: confusion - Allergic/Immunologic Allergic/Immunologic: seasonal rhinorrhea Physical Examination Vital Signs: Vital Signs, Last 4 Hours Pulse 04/14/18 08:44 89 General appearance: no acute distress Effort: normal Auscultation: bilateral: other (faint bibasilar crackles, improved after cough) Cardiovascular: regular rate and rhythm Gastrointestinal: normoactive bowel sounds, soft, non-tender Integumentary: rash (diffuse maculopapular) Extremities: no cyanosis, no edema, no clubbing Musculoskeletal: joint inflammation (bilateral hands) normal mental status, non-focal exam Results - Laboratory Findings CBC and BMP: 04/14/18 05:22 04/14/18 05:22 PT/INR, D-dimer PT 13.0 Seconds (9.4-12.1) H 04/10/18 10:09 Abnormal lab findings: Abnormal lab results WBC 2.0 K/mcL (4.3-11.1) L 04/14/18 05:22 RBC 3.31 M/mcL (3.82-4.97) L 04/14/18 05:22 Hgb 10.7 g/dL (11.5-15.4) L D 04/14/18 05:22 Hct 30.7 % (35.3-44.9) L 04/14/18 05:22 Neutrophils # 0.5 K/mcL (1.6-8.9) L 04/14/18 05:22 Reactive Lymphocytes Present (Not Present) A 04/13/18 05:21 ESR 44 mm/hr (0-15) H 04/11/18 17:20 PT 13.0 Seconds (9.4-12.1) H 04/10/18 10:09 APTT 25.9 Seconds (26.0-36.0) L 04/10/18 10:09 Sodium 132 mEq/L (136-145) L 04/14/18 05:22 Chloride 110 mEq/L (98-107) H 04/14/18 05:22 Carbon Dioxide 17 mEq/L (23-29) L 04/14/18 05:22 Creatinine 0.52 mg/dL (0.60-1.20) L 04/14/18 05:22 BUN/Creatinine Ratio 42 (6-26) H 04/14/18 05:22 POC Glucose 149 mg/dL (70-99) H 04/10/18 10:08 Calculated Osmolality 277 (280-300) L 04/14/18 05:22 C-Reactive Protein 39 mg/L (Less than 10) H 04/14/18 05:22 Serum Total Protein 5.8 g/dL (6.4-8.9) L 04/11/18 03:55 Albumin 3.0 g/dL (3.5-5.7) L 04/11/18 03:55 HDL Cholesterol 18 mg/dL (40-59) L 04/11/18 03:55 Cholesterol/HDL Ratio 5.9 (0-4.9) H 04/11/18 03:55 Urine Clarity Slightly Cloudy (Clear) A 04/10/18 14:00 Urine Protein 100 mg/dL (Neg-Trace) H 04/10/18 14:00 Urine Blood Moderate (Negative) H 04/10/18 14:00 Urine Microscopic WBC 3-5 per hpf (0-3) H 04/10/18 14:00 Ur Squamous Epith Cells Many per lpf (None-Few) H 04/10/18 14:00 Urine Bacteria Many per hpf (None-Few) H 04/10/18 14:00 - Clinical Findings Intake & Output: Intake & Output 04/13/18 04/14/18 04/14/18 23:59 07:59 15:59 Intake Total 1240 / 1240 1020 / 1020 654 / 654 Output Total 350 / 350 700 / 700 Balance 890 / 890 320 / 320 654 / 654 Weight 86.183 kg Consult Discharge Plan - Plan Referrals: Donald Anderson DO [Partnered Physician] - 05/07/18 1:00 pm Elaina Andrade CNP [Primary Care Provider] - 04/21/18 12:30 pm <Phi Calles S - Last Filed: 04/14/18 21:57> Date of Encounter: 04/14/18 All Systems: The remainder of the systems were reviewed and are negative Physical Examination Vital Signs: Vital Signs, Last 4 Hours Temp Pulse Resp BP Pulse Ox 04/14/18 11:54 98.2 F 70 17 109/75 98 Results - Laboratory Findings CBC and BMP: 04/14/18 05:22 04/14/18 05:22 PT/INR, D-dimer PT 13.0 Seconds (9.4-12.1) H 04/10/18 10:09 Abnormal lab findings: Abnormal lab results WBC 2.0 K/mcL (4.3-11.1) L 04/14/18 05:22 RBC 3.31 M/mcL (3.82-4.97) L 04/14/18 05:22 Hgb 10.7 g/dL (11.5-15.4) L D 04/14/18 05:22 Hct 30.7 % (35.3-44.9) L 04/14/18 05:22 Neutrophils # 0.5 K/mcL (1.6-8.9) L 04/14/18 05:22 Reactive Lymphocytes Present (Not Present) A 04/13/18 05:21 ESR 44 mm/hr (0-15) H 04/11/18 17:20 PT 13.0 Seconds (9.4-12.1) H 04/10/18 10:09 APTT 25.9 Seconds (26.0-36.0) L 04/10/18 10:09 Sodium 132 mEq/L (136-145) L 04/14/18 05:22 Chloride 110 mEq/L (98-107) H 04/14/18 05:22 Carbon Dioxide 17 mEq/L (23-29) L 04/14/18 05:22 Creatinine 0.52 mg/dL (0.60-1.20) L 04/14/18 05:22 BUN/Creatinine Ratio 42 (6-26) H 04/14/18 05:22 POC Glucose 149 mg/dL (70-99) H 04/10/18 10:08 Calculated Osmolality 277 (280-300) L 04/14/18 05:22 C-Reactive Protein 39 mg/L (Less than 10) H 04/14/18 05:22 B-Natriuretic Peptide 210 pg/mL (Less than 100) H 04/14/18 11:42 Serum Total Protein 5.8 g/dL (6.4-8.9) L 04/11/18 03:55 Albumin 3.0 g/dL (3.5-5.7) L 04/11/18 03:55 HDL Cholesterol 18 mg/dL (40-59) L 04/11/18 03:55 Cholesterol/HDL Ratio 5.9 (0-4.9) H 04/11/18 03:55 Urine Clarity Slightly Cloudy (Clear) A 04/10/18 14:00 Urine Protein 100 mg/dL (Neg-Trace) H 04/10/18 14:00 Urine Blood Moderate (Negative) H 04/10/18 14:00 Urine Microscopic WBC 3-5 per hpf (0-3) H 04/10/18 14:00 Ur Squamous Epith Cells Many per lpf (None-Few) H 04/10/18 14:00 Urine Bacteria Many per hpf (None-Few) H 04/10/18 14:00 - Clinical Findings Intake & Output: Intake & Output 04/13/18 04/14/18 04/14/18 23:59 07:59 15:59 Intake Total 1240 / 1240 1020 / 1020 894 / 894 Output Total 350 / 350 700 / 700 Balance 890 / 890 320 / 320 894 / 894 Weight 86.183 kg - Attending Attestation I saw and evaluated this patient and my medical decision-making was reviewed with the Resident Physician. I agree with the documented findings, disposition and treatment plan as described except to the extent set forth below. We independently had [id number] contact with the patient Patient seen and examined at bedside Labs, radiology, chart personally reviewed. Patient was consult for the abnormal CT scan findings before interstitial fibrosis. Reviewed the CT scan ordered very subtle subpleural fibrosis with some atelectasis patient does not have any significant pulmonary history no significant V/Q mismatch her exercise tolerance prior to his venous ulcer is pretty decent milk but now very hard to ascertain because she does not do much activities what she used to do. This Pulmonary fibrosis does not fit in a pattern of NSIP versus UIP Patient does not have any significant risk factors for pulmonary fibrosis secondary to other causes. Patient current presentation can be due to serum sickness due to Bactrim and the leukopenia secondary to Bactrim use as it takes at least 2-3 weeks for the leukopenia to recover. Is reasonable to evaluate for other rheumatological causes like vasculitis pending ANCA. If there is persistent rash recommend a dermatology consult for possible biopsy to rule out any vasculitis. Patient will need outpatient PFTs and follow -up HRCT to further further characterize lung parenchyma to look for any other pattern for other interstitial lung disease . Ground glass opacity can be due to her diastolic dysfunction of the technique of the CT scan will follow-up as an outpatient. This fever most likely due to chronic venous ulcer. Her cough can be secondary to diastolic dysfunction versus chronic postnasal drip she has.
[2018-04-14] MEDS ORDERED: Acetaminophen 325 MG TABLET PO ONE (13:34)
--- NOTE | 2018-04-14 14:32 | Internal Med Progress Note ---
<Cain Fuchs S - Last Filed: 04/14/18 14:27> Hospitalist Progress Note - Encounter Date of Encounter: 04/14/18 Time of Encounter: 10:00 - Subjective Interval History: 68 year old female with PMHx of venous stasis ulcer, HTN, and HLD presented to [facility] for facial droop and slurred speech. Patient is doing well this morning and states her TIA symptoms have resolved. She is also being treated for a venous stasis ulcer and hyponatremia. She is doing well today. She states her rash is improving. Patient had a temp of 100.3 two nights ago, and she complains of a nonproductive cough that started around the same time. She denies TREVIÑO, blurred vision, fevers/chills, SOB, CP, abdominal pain, n/v/d, weakness, numbness. - Exam Vitals: Temp Pulse Resp BP Pulse Ox 98.2 F 70 17 109/75 98 04/14/18 11:54 04/14/18 11:54 04/14/18 11:54 04/14/18 11:54 04/14/18 11:54 Exam: Gen: no acute distress, A&O x3 HEENT: moist mucus membranes Heart: RRR, no murmurs Lungs: crackles in bases bilaterally Abdomen: soft, non-tender Extremities: wound vac and dressing on left LE, no edema on right LE Vascular: pulses +2 in all extremities Skin: Rash is improving Neuro: no facial droop, CN II-XII intact, sensation intact in all extremities, no focal deficits - Assessment and Plan (1) Venous ulcer of leg Current Visit: No Status: Acute Assessment and Plan: Left lower extremity ID on consult Wound culture positive for Pseudomonas aeruginosa Disontinued cefepime due to rash Started IV meropenem CT showed subtle periosteal reaction, will likely receive Abx for 4-6 weeks ESR 44, CRP 39 Will have wound vac changed today Monitor renal function (2) Leukopenia Current Visit: Yes Status: Acute Assessment and Plan: WBC decreased 3.2 > 2 today (54% lymphocytes) Patient had a temp of 100.3 two nights ago Patient developed a cough 2 days ago Patient recently started on meropenem Could be meropenem vs viral vs sepsis (3) Hyponatremia Current Visit: Yes Status: Acute Assessment and Plan: Sodium unchanged and stable today at 132 IVF PRN if hypotensive (4) TIA (transient ischemic attack) Current Visit: Yes Status: Resolved (5) PETR (acute kidney injury) Current Visit: Yes Status: Resolved (6) Rash Current Visit: Yes Status: Acute Assessment and Plan: Improving Possibly due to bactrim vs cefepime Cefepime discontinued Patient started on meropenem for LLE wound Continue steroids (7) Hypokalemia Current Visit: Yes Status: Resolved (8) Interstitial lung disease Current Visit: Yes Status: Acute Assessment and Plan: CT showed interstitial lung disease Pulmonology consulted Concern for rheumatologic/vasculitic source with recent use of bactrim, rash, and joint swelling Ordered AUGUSTINE, ANCA, BMP, CBC, Cryoglobulin, Histone Ab, lupus anticoagulant, histoplasma galactomannan, fungitell Add incentive spirometer Recommend follow up in 2-3 weeks, will need repeat CT DVT Prophylaxis: Subcutaneous heparin - Time Spent with Patient Total time spent is greater than 50% in coordination of care (as documented) at patient's floor/unit and/or counseling patient: less than 15 minutes Plan of Care Discussed with: patient Internal Medicine: Result - Labs CBC & Chem 7: 04/14/18 05:22 04/14/18 05:22 Labs: Short CBC 04/14/18 Range/Units 05:22 WBC 2.0 L (4.3-11.1) K/mcL Hgb 10.7 L D (11.5-15.4) g/dL Hct 30.7 L (35.3-44.9) % Plt Count 184 (140-400) K/mcL Neutrophils # 0.5 L (1.6-8.9) K/mcL BMP 04/14/18 05:22 Sodium 132 L Potassium 3.8 Chloride 110 H Carbon Dioxide 17 L BUN 22 Creatinine 0.52 L Glucose 98 Calcium 8.6 - ABG Interpretation ABG results: PT/INR, D-dimer PT 13.0 Seconds (9.4-12.1) H 04/10/18 10:09 Consult Discharge Plan - Plan Referrals: Donald Anderson DO [Partnered Physician] - 05/07/18 1:00 pm Elaina Andrade CNP [Primary Care Provider] - 04/21/18 12:30 pm <Andria Riddle - Last Filed: 04/14/18 15:26> Hospitalist Progress Note - Encounter Date of Encounter: 04/14/18 - Exam Vitals: Temp Pulse Resp BP Pulse Ox 98.2 F 70 17 109/75 98 04/14/18 11:54 04/14/18 11:54 04/14/18 11:54 04/14/18 11:54 04/14/18 11:54 - Assessment and Plan (1) TIA (transient ischemic attack) Current Visit: Yes Status: Resolved (2) Venous ulcer of leg Current Visit: No Status: Acute (3) Hyponatremia Current Visit: Yes Status: Acute (4) PETR (acute kidney injury) Current Visit: Yes Status: Resolved (5) Rash Current Visit: Yes Status: Acute (6) Hypokalemia Current Visit: Yes Status: Resolved - Time Spent with Patient Total time spent is greater than 50% in coordination of care (as documented) at patient's floor/unit and/or counseling patient: Internal Medicine: Result - Labs CBC & Chem 7: 04/14/18 05:22 04/14/18 05:22 Labs: Short CBC 04/14/18 Range/Units 05:22 WBC 2.0 L (4.3-11.1) K/mcL Hgb 10.7 L D (11.5-15.4) g/dL Hct 30.7 L (35.3-44.9) % Plt Count 184 (140-400) K/mcL Neutrophils # 0.5 L (1.6-8.9) K/mcL BMP 04/14/18 05:22 Sodium 132 L Potassium 3.8 Chloride 110 H Carbon Dioxide 17 L BUN 22 Creatinine 0.52 L Glucose 98 Calcium 8.6 - ABG Interpretation ABG results: PT/INR, D-dimer PT 13.0 Seconds (9.4-12.1) H 04/10/18 10:09 - Attending Attestation I examined this patient and my medical decision-making was reviewed with the Resident Physician, Dr. Fuchs. I agree with the documented findings, disposition and treatment plan as described except to the extent set forth below. <Cain Fuchs - Last Filed: 04/14/18 14:27> (1) Venous ulcer of leg Qualifiers: Laterality: left Qualified Code(s): I83.029 - Varicose veins of left lower extremity with ulcer of unspecified site; L97.929 - Non-pressure chronic ulcer of unspecified part of left lower leg with unspecified severity; L97.929 - Non- pressure chronic ulcer of unspecified part of left lower leg with unspecified severity; L97.929 - Non-pressure chronic ulcer of unspecified part of left lower leg with unspecified severity; L97.929 - Non-pressure chronic ulcer of unspecified part of left lower leg with unspecified severity (2) Leukopenia Qualifiers: Leukopenia type: neutropenia Neutropenia type: unspecified Qualified Code(s) : D70.9 - Neutropenia, unspecified <Andria Riddle - Last Filed: 04/14/18 15:26> (2) Venous ulcer of leg Qualifiers: Laterality: left Qualified Code(s): I83.029 - Varicose veins of left lower extremity with ulcer of unspecified site; L97.929 - Non-pressure chronic ulcer of unspecified part of left lower leg with unspecified severity; L97.929 - Non- pressure chronic ulcer of unspecified part of left lower leg with unspecified severity; L97.929 - Non-pressure chronic ulcer of unspecified part of left lower leg with unspecified severity; L97.929 - Non-pressure chronic ulcer of unspecified part of left lower leg with unspecified severity
[2018-04-15] MEDS: *HR* Heparin 5,000 UNIT/ML VIAL SQ SCH ×2 (04:17→18:25)
[2018-04-15 05:38] LABS: Basophils % 0.5 %; Hematocrit 34.4 % (35.3-44.9); Hemoglobin 12.2 g/dL (11.5-15.4); Lymphocytes % 69.8 %; Mean Corpuscular HGB Conc 35.5 g/dL (31.6-35.5); Mean Corpuscular Hemoglobin 33.2 pg (28.0-33.3); Mean Corpuscular Volume 93.5 fL (83.0-100.0); Mean Platelet Volume 10.9 fL (9.4-12.4); Monocytes # 0.4 K/mcL (0.0-1.3); Monocytes % 20.5 %; Neutrophils # 0.2 K/mcL (1.6-8.9); Platelet Count 231 K/mcL (140-400); Red Blood Count 3.68 M/mcL (3.82-4.97); Red Cell Distribution Width 13.3 % (11.5-14.5); Segmented Neutrophils % 7.2 %
[2018-04-15 05:43] LABS: Lymphocytes # 1.5 K/mcL (0.6-4.6)
[2018-04-15 06:06] LABS: BUN/Creatinine Ratio 39 (6-26); Blood Urea Nitrogen 20 mg/dL (8-23); Calcium 8.9 mg/dL (8.6-10.3); Carbon Dioxide 19 mEq/L (23-29); Chloride 108 mEq/L (98-107); Glucose 108 mg/dL (70-105); Osmolality,Calculated 279 (280-300); Potassium 3.7 mEq/L (3.5-5.1); Sodium 133 mEq/L (136-145); eGFR For Non-African Americans > 60 (> 60)
[2018-04-15 06:07] LABS: Platelet Estimate Normal (Normal)
[2018-04-15] MEDS: Loratadine 10 MG TABLET PO SCH (08:37)
[2018-04-15] MEDS: predniSONE 20 MG TABLET PO SCH (08:37)
[2018-04-15] MEDS: Famotidine 20 MG TABLET PO SCH ×2 (08:37→23:12)
[2018-04-15] MEDS: Aspirin 325 MG TABLET PO SCH (08:37)
[2018-04-15] MEDS: Meropenem 1,000 MG in Water for inj. (sterile) 20 ML 10 ML IVP SCH ×3 (08:37→23:12)
[2018-04-15] MEDS: Benzonatate 100 MG CAPSULE PO PRN (08:41)
--- NOTE | 2018-04-15 11:02 | Oncology Inp Consult Note ---
<Yvan Romero - Last Filed: 04/15/18 10:55> Date of Encounter: 04/15/18 Time of Encounter: 10:55 Assessment and Plan (1) Leukopenia Status: Acute Assessment and plan: 68-year-old female initially presented with strokelike symptoms diagnosed with TIA, who has a chronic left lower extremity venous ulcer with wound VAC attached is consulted for leukopenia that has developed after admission. Patient's baseline WBC count is between 5 and 6 and today she is at 2.1 with ANC of 200. Patient was initially on the cefepime for her venous stasis ulcer however since admission she had developed fever 101.1 on 04/11/18 and this was changed to meropenem. Patient's hemoglobin and platelet count are within normal limits. Peripheral smear has been sent and is pending. Pulmonology and primary team have sent autoimmune and infectious workup No blasts seen on CBC. Patient has been afebrile since 04/11/2018. At this point is unlikely that patient is leukopenia secondary to bone marrow pathology. Patient's hemoglobin and hematocrit are within normal limits as well as platelets. Patient can definitely developed leukopenia and presence of sepsis, chronic disease secondary to venous stasis ulcer as well as autoimmune/ rheumatological etiology. We will await peripheral smear results and follow trend of the WBC count. There is no indication for G-CSF. Qualifiers: Leukopenia type: neutropenia Neutropenia type: unspecified Qualified Code (s): D70.9 - Neutropenia, unspecified (2) Venous ulcer of leg Status: Acute Assessment and plan: Plan as per primary and ID Qualifiers: Laterality: left Qualified Code(s): I83.029 - Varicose veins of left lower extremity with ulcer of unspecified site; L97.929 - Non-pressure chronic ulcer of unspecified part of left lower leg with unspecified severity; L97.929 - Non- pressure chronic ulcer of unspecified part of left lower leg with unspecified severity; L97.929 - Non-pressure chronic ulcer of unspecified part of left lower leg with unspecified severity; L97.929 - Non-pressure chronic ulcer of unspecified part of left lower leg with unspecified severity - Data of Consult Patient: new to practice Consult date: 04/15/18 Requesting Physician: Joey Martinez MD Primary Care Provider: Elaina Andrade CNP - Consult Narrative Reason for consult: Leukopenia History of present illness: Ms. Crespo is a 68 year old female who presented to the emergency department for chief complaint of slurred speech and facial drooping. This was on 04/10/18. Patient was worked up for stroke, did not require TPA and was diagnosed with TIA. Along with that patient also had hyponatremia, acute kidney injury and has a chronic venous ulcer of the left leg with a wound VAC in place and patient was on cefepime outpatient. 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 Patient's baseline WBC count is around 5-6. On 04/12/16 patient was noted to develop decreased white blood cell count. Today WBC is 2.1 with an ANC of 200. Patient had a fever on 04/13/18 and antibiotic was changed from cefepime to meropenem. Pulmonology was also consulted because of abnormal CT scan showing interstitial lung disease. Patient reports she has never had a problem with her white blood cell count in the past. She also denies history of cancer. She is up-to-date on her mammogram, colonoscopy, Pap smear. She denies any family history of blood marrow disorders, leukemia. Past Med Surg Social Fam HX - Past Medical History Medical history: hyperlipidemia, hypertension, venous stasis Additional medical history: Superficial Phlebitis Psychiatric history: no psych history - Past Surgical History Surgical History: appendectomy, orthopedic, other Additional surgical history: fx rt knee repair - Social History Smoking Status: Never smoker Smokeless Tobacco Status: No Alcohol use: none Drug use: none - Family History Mother Living Status: Hx Family Neurologic Disorders: Yes (CVA) Father Hx Family Endocrine Disorder: Yes (DM) Medications and Allergies Losartan/Hydrochlorothiazide [Losartan-Hctz 100-25 mg Tab] 1 tab PO DAILY [History] Cefepime HCl [Maxipime] 2 gm IV BID 04/10/18 [History] Ibuprofen [Motrin Ib] 400 mg PO BID PRN 04/10/18 [History] 3 Allergy/AdvReac Type Severity Reaction Status Date / Time sulfamethoxazole Allergy Hives Verified 04/10/18 11:33 [From Bactrim] trimethoprim [From Bactrim] Allergy Hives Verified 04/10/18 11:33 Review of systems: Constitutional: Denies fever, chills HEENT: Denies headache, vision changes, neck pain, sore throat, rhinorrhea Heart: Denies chest pain palpitations Lungs: Denies shortness of breath cough Abdomen: Denies abdominal pain nausea vomiting diarrhea Back: Denies back pain Kidney: Denies dysuria, hematuria Skin: Reports rash, reports left lower extremity ulcer Extremities: Denies swelling, pain Neuro: Denies numbness and tingling Oncology - Exam - Constitutional Vitals: Temp Pulse Resp BP Pulse Ox 98.4 F 74 18 102/72 94 04/15/18 07:23 04/15/18 08:58 04/15/18 07:23 04/15/18 07:23 04/15/18 07:23 - Additional findings Additional findings: General: Pleasant without distress HEENT: Head atraumatic, normocephalic, EOMI, PERRL, neck nontender to palpation , absent lymphadenopathy, Moist Mucous Membranes, Heart: Regular rate and rhythm with no murmur Lungs: Bilateral crackles at bases Abdomen: Soft nontender, nondistended positive bowel sounds Skin: Patient has a diffuse maculopapular rash throughout her entire body sparing face and neck. Extremities: Left lower extremity bandaged with wound VAC in place. Neuro: Cranial nerves II through XII intact, UE and LE sensation equal bilaterally, UE and LEstrength 5/5, alert oriented 3, Heel to valladares intact, finger to nose intact, Gait intact, rhombergs sign negative, b/l plantar reflexes downwards Vascular: Pedal and radial pulses 2 out of 4 Oncology - Results Labs: 3 04/15/18 04/15/18 04/14/18 04:19 04:19 11:42 WBC 2.1 L RBC 3.68 L Hgb 12.2 D Hct 34.4 L MCV 93.5 MCH 33.2 MCHC 35.5 RDW 13.3 Plt Count 231 MPV 10.9 Immature Gran % 0.0 Seg Neutrophils % 7.2 Lymphocytes % 69.8 Monocytes % 20.5 Eosinophils % 2.0 Basophils % 0.5 Neutrophils # 0.2 L Lymphocytes # 1.5 Monocytes # 0.4 Eosinophils # 0.0 Basophils # 0.0 Reactive Lymphocytes Platelet Estimate Normal Immature Plt Fraction Smear Path Review ESR Sodium 133 L Potassium 3.7 Chloride 108 H Carbon Dioxide 19 L BUN 20 Creatinine 0.51 L Est GFR ( Amer) > 60 Est GFR (Non-Af Amer) > 60 BUN/Creatinine Ratio 39 H Glucose 108 H Calculated Osmolality 279 L Calcium 8.9 Total Bilirubin AST ALT Alkaline Phosphatase C-Reactive Protein B-Natriuretic Peptide 210 H Serum Total Protein Albumin Globulin Albumin/Globulin Ratio Triglycerides Cholesterol LDL Cholesterol, Calc VLDL Cholesterol, Calc HDL Cholesterol Cholesterol/HDL Ratio Urine Opiates Screen Ur Barbiturates Screen Ur Phencyclidine Scrn Ur Amphetamines Screen U Benzodiazepines Scrn Urine Cocaine Screen U Marijuana (THC) Screen Ur Drug Screen Interp Rheumatoid Factor 3 04/14/18 04/14/18 04/13/18 05:22 05:22 05:21 WBC 2.0 L RBC 3.31 L Hgb 10.7 L D Hct 30.7 L MCV 92.7 MCH 32.3 MCHC 34.9 RDW 13.4 Plt Count 184 MPV 10.8 Immature Gran % 0.0 Seg Neutrophils % 26.1 Lymphocytes % 54.7 Monocytes % 14.3 Eosinophils % 4.4 Basophils % 0.5 Neutrophils # 0.5 L Lymphocytes # 1.1 Monocytes # 0.3 Eosinophils # 0.1 Basophils # 0.0 Reactive Lymphocytes Platelet Estimate Normal Immature Plt Fraction Smear Path Review See Below ESR Sodium 132 L 132 L Potassium 3.8 3.9 Chloride 110 H 110 H Carbon Dioxide 17 L 15 L BUN 22 31 H Creatinine 0.52 L 0.61 Est GFR ( Amer) > 60 > 60 Est GFR (Non-Af Amer) > 60 > 60 BUN/Creatinine Ratio 42 H 51 H Glucose 98 92 Calculated Osmolality 277 L 280 Calcium 8.6 9.1 Total Bilirubin AST ALT Alkaline Phosphatase C-Reactive Protein 39 H B-Natriuretic Peptide Serum Total Protein Albumin Globulin Albumin/Globulin Ratio Triglycerides Cholesterol LDL Cholesterol, Calc VLDL Cholesterol, Calc HDL Cholesterol Cholesterol/HDL Ratio Urine Opiates Screen Ur Barbiturates Screen Ur Phencyclidine Scrn Ur Amphetamines Screen U Benzodiazepines Scrn Urine Cocaine Screen U Marijuana (THC) Screen Ur Drug Screen Interp Rheumatoid Factor 3 04/13/18 04/12/18 04/12/18 05:21 05:20 05:20 WBC 3.2 L RBC 3.95 Hgb 13.1 D Hct 37.3 MCV 94.4 MCH 33.2 MCHC 35.1 RDW 13.2 Plt Count 189 MPV 11.1 Immature Gran % 0.6 Seg Neutrophils % 53.6 Lymphocytes % 27.5 Monocytes % 12.0 Eosinophils % 6.0 Basophils % 0.3 Neutrophils # 1.7 Lymphocytes # 0.9 Monocytes # 0.4 Eosinophils # 0.2 Basophils # 0.0 Reactive Lymphocytes Present A Platelet Estimate Normal Immature Plt Fraction 5.0 Smear Path Review ESR Sodium 129 L Potassium 3.3 L Chloride 107 Carbon Dioxide 15 L BUN 43 H Creatinine 0.65 Est GFR ( Amer) > 60 Est GFR (Non-Af Amer) > 60 BUN/Creatinine Ratio 66 H Glucose 101 Calculated Osmolality 279 L Calcium 8.7 Total Bilirubin AST ALT Alkaline Phosphatase C-Reactive Protein B-Natriuretic Peptide Serum Total Protein Albumin Globulin Albumin/Globulin Ratio Triglycerides Cholesterol LDL Cholesterol, Calc VLDL Cholesterol, Calc HDL Cholesterol Cholesterol/HDL Ratio Urine Opiates Screen Ur Barbiturates Screen Ur Phencyclidine Scrn Ur Amphetamines Screen U Benzodiazepines Scrn Urine Cocaine Screen U Marijuana (THC) Screen Ur Drug Screen Interp Rheumatoid Factor < 10 3 04/12/18 04/11/18 04/11/18 05:20 17:20 17:20 WBC 4.2 L RBC 3.50 L Hgb 11.3 L Hct 32.2 L MCV 92.0 MCH 32.3 MCHC 35.1 RDW 13.3 Plt Count 173 MPV 11.0 Immature Gran % 0.2 Seg Neutrophils % 71.3 Lymphocytes % 13.2 Monocytes % 8.0 Eosinophils % 7.1 Basophils % 0.2 Neutrophils # 3.0 Lymphocytes # 0.6 Monocytes # 0.3 Eosinophils # 0.3 Basophils # 0.0 Reactive Lymphocytes Platelet Estimate Immature Plt Fraction Smear Path Review ESR 44 H Sodium Potassium Chloride Carbon Dioxide BUN Creatinine Est GFR ( Amer) Est GFR (Non-Af Amer) BUN/Creatinine Ratio Glucose Calculated Osmolality Calcium Total Bilirubin AST ALT Alkaline Phosphatase C-Reactive Protein 74 H B-Natriuretic Peptide Serum Total Protein Albumin Globulin Albumin/Globulin Ratio Triglycerides Cholesterol LDL Cholesterol, Calc VLDL Cholesterol, Calc HDL Cholesterol Cholesterol/HDL Ratio Urine Opiates Screen Ur Barbiturates Screen Ur Phencyclidine Scrn Ur Amphetamines Screen U Benzodiazepines Scrn Urine Cocaine Screen U Marijuana (THC) Screen Ur Drug Screen Interp Rheumatoid Factor 3 04/11/18 04/11/18 04/11/18 09:58 03:55 03:55 WBC 4.6 RBC 3.68 L Hgb 12.0 D Hct 33.9 L MCV 92.1 MCH 32.6 MCHC 35.4 RDW 13.1 Plt Count 175 MPV 11.2 Immature Gran % 0.4 Seg Neutrophils % 80.4 Lymphocytes % 10.6 Monocytes % 6.9 Eosinophils % 1.7 Basophils % 0.0 Neutrophils # 3.7 Lymphocytes # 0.5 L Monocytes # 0.3 Eosinophils # 0.1 Basophils # 0.0 Reactive Lymphocytes Platelet Estimate Immature Plt Fraction Smear Path Review ESR Sodium 127 L 124 L Potassium 3.0 L Chloride 100 Carbon Dioxide 13 L BUN 59 H Creatinine 0.83 Est GFR ( Amer) > 60 Est GFR (Non-Af Amer) > 60 BUN/Creatinine Ratio 71 H Glucose 146 H Calculated Osmolality 277 L Calcium 8.5 L Total Bilirubin 0.5 AST 23 ALT 25 Alkaline Phosphatase 43 C-Reactive Protein B-Natriuretic Peptide Serum Total Protein 5.8 L Albumin 3.0 L Globulin 2.8 Albumin/Globulin Ratio 1.1 Triglycerides 120 Cholesterol 107 LDL Cholesterol, Calc 65 VLDL Cholesterol, Calc 24 HDL Cholesterol 18 L Cholesterol/HDL Ratio 5.9 H Urine Opiates Screen Ur Barbiturates Screen Ur Phencyclidine Scrn Ur Amphetamines Screen U Benzodiazepines Scrn Urine Cocaine Screen U Marijuana (THC) Screen Ur Drug Screen Interp Rheumatoid Factor 3 04/10/18 04/10/18 22:14 20:05 WBC RBC Hgb Hct MCV MCH MCHC RDW Plt Count MPV Immature Gran % Seg Neutrophils % Lymphocytes % Monocytes % Eosinophils % Basophils % Neutrophils # Lymphocytes # Monocytes # Eosinophils # Basophils # Reactive Lymphocytes Platelet Estimate Immature Plt Fraction Smear Path Review ESR Sodium 126 L Potassium 3.4 L Chloride 98 Carbon Dioxide 16 L BUN 67 H Creatinine 1.01 Est GFR ( Amer) > 60 Est GFR (Non-Af Amer) 55 L BUN/Creatinine Ratio 66 H Glucose 102 Calculated Osmolality 282 Calcium 9.1 Total Bilirubin AST ALT Alkaline Phosphatase C-Reactive Protein B-Natriuretic Peptide Serum Total Protein Albumin Globulin Albumin/Globulin Ratio Triglycerides Cholesterol LDL Cholesterol, Calc VLDL Cholesterol, Calc HDL Cholesterol Cholesterol/HDL Ratio Urine Opiates Screen Negative Ur Barbiturates Screen Negative Ur Phencyclidine Scrn Negative Ur Amphetamines Screen Negative U Benzodiazepines Scrn Negative Urine Cocaine Screen Negative U Marijuana (THC) Screen Negative Ur Drug Screen Interp See Below Rheumatoid Factor Consult Discharge Plan - Plan Referrals: Donald Anderson DO [Partnered Physician] - 05/07/18 1:00 pm Elaina Andrade CNP [Primary Care Provider] - 04/21/18 12:30 pm <Zen Hill - Last Filed: 04/15/18 19:16> Date of Encounter: 04/15/18 - Data of Consult Requesting Physician: Joey Martinez MD Primary Care Provider: Elaina Andrade CNP - Consult Narrative History of present illness: Ms. Crespo is a 68 year old female Oncology - Exam - Constitutional Vitals: Temp Pulse Resp BP Pulse Ox 97.8 F 74 18 115/78 98 04/15/18 16:30 04/15/18 16:30 04/15/18 07:23 04/15/18 16:30 04/15/18 16:30 Oncology - Results Labs: 3 04/15/18 04/15/18 04/15/18 11:54 04:19 04:19 WBC 2.1 L RBC 3.68 L Hgb 12.2 D Hct 34.4 L MCV 93.5 MCH 33.2 MCHC 35.5 RDW 13.3 Plt Count 231 MPV 10.9 Immature Gran % 0.0 Seg Neutrophils % 7.2 Lymphocytes % 69.8 Monocytes % 20.5 Eosinophils % 2.0 Basophils % 0.5 Neutrophils # 0.2 L Lymphocytes # 1.5 Monocytes # 0.4 Eosinophils # 0.0 Basophils # 0.0 Reactive Lymphocytes Platelet Estimate Normal Immature Plt Fraction Smear Path Review ESR Sodium 133 L Potassium 3.7 Chloride 108 H Carbon Dioxide 19 L BUN 20 Creatinine 0.51 L Est GFR ( Amer) > 60 Est GFR (Non-Af Amer) > 60 BUN/Creatinine Ratio 39 H Glucose 108 H Calculated Osmolality 279 L Calcium 8.9 Total Bilirubin AST ALT Alkaline Phosphatase C-Reactive Protein B-Natriuretic Peptide Serum Total Protein Albumin Globulin Albumin/Globulin Ratio Triglycerides Cholesterol LDL Cholesterol, Calc VLDL Cholesterol, Calc HDL Cholesterol Cholesterol/HDL Ratio Urine Opiates Screen Ur Barbiturates Screen Ur Phencyclidine Scrn Ur Amphetamines Screen U Benzodiazepines Scrn Urine Cocaine Screen U Marijuana (THC) Screen Ur Drug Screen Interp Rheumatoid Factor Histone IgG Antibody Chlamy pneumoniae PCR Not Detected Adenovirus (PCR) Not Detected B. pertussis DNA (PCR) Not Detected B.parapertussis DNA PCR Not Detected Coronavirus OC43 (PCR) Not Detected Coronavirus HKU1 (PCR) Not Detected Coronavirus 229E (PCR) Not Detected Coronavirus NL63 (PCR) Not Detected Human Metapneumovir PCR Not Detected Influenza A (H1) PCR Not Detected Influ A (H1N1/09) PCR Not Detected Influenza A (H3) PCR Not Detected Influenza A Untype (PCR) Not Detected Influenza Type B (PCR) Not Detected M.pneumoniae DNA (PCR) Not Detected Parainfluenza 1 (PCR) Not Detected Parainfluenza 2 (PCR) Not Detected Parainfluenza 3 (PCR) Not Detected Parainfluenza 4 (PCR) Not Detected RSV (PCR) Not Detected Entero/Rhino (PCR) Not Detected 3 04/14/18 04/14/18 04/14/18 11:42 05:22 05:22 WBC 2.0 L RBC 3.31 L Hgb 10.7 L D Hct 30.7 L MCV 92.7 MCH 32.3 MCHC 34.9 RDW 13.4 Plt Count 184 MPV 10.8 Immature Gran % 0.0 Seg Neutrophils % 26.1 Lymphocytes % 54.7 Monocytes % 14.3 Eosinophils % 4.4 Basophils % 0.5 Neutrophils # 0.5 L Lymphocytes # 1.1 Monocytes # 0.3 Eosinophils # 0.1 Basophils # 0.0 Reactive Lymphocytes Platelet Estimate Normal Immature Plt Fraction Smear Path Review See Below ESR Sodium 132 L Potassium 3.8 Chloride 110 H Carbon Dioxide 17 L BUN 22 Creatinine 0.52 L Est GFR ( Amer) > 60 Est GFR (Non-Af Amer) > 60 BUN/Creatinine Ratio 42 H Glucose 98 Calculated Osmolality 277 L Calcium 8.6 Total Bilirubin AST ALT Alkaline Phosphatase C-Reactive Protein 39 H B-Natriuretic Peptide 210 H Serum Total Protein Albumin Globulin Albumin/Globulin Ratio Triglycerides Cholesterol LDL Cholesterol, Calc VLDL Cholesterol, Calc HDL Cholesterol Cholesterol/HDL Ratio Urine Opiates Screen Ur Barbiturates Screen Ur Phencyclidine Scrn Ur Amphetamines Screen U Benzodiazepines Scrn Urine Cocaine Screen U Marijuana (THC) Screen Ur Drug Screen Interp Rheumatoid Factor Histone IgG Antibody Chlamy pneumoniae PCR Adenovirus (PCR) B. pertussis DNA (PCR) B.parapertussis DNA PCR Coronavirus OC43 (PCR) Coronavirus HKU1 (PCR) Coronavirus 229E (PCR) Coronavirus NL63 (PCR) Human Metapneumovir PCR Influenza A (H1) PCR Influ A (H1N1/09) PCR Influenza A (H3) PCR Influenza A Untype (PCR) Influenza Type B (PCR) M.pneumoniae DNA (PCR) Parainfluenza 1 (PCR) Parainfluenza 2 (PCR) Parainfluenza 3 (PCR) Parainfluenza 4 (PCR) RSV (PCR) Entero/Rhino (PCR) 3 04/13/18 04/13/18 04/12/18 05:21 05:21 05:20 WBC 3.2 L RBC 3.95 Hgb 13.1 D Hct 37.3 MCV 94.4 MCH 33.2 MCHC 35.1 RDW 13.2 Plt Count 189 MPV 11.1 Immature Gran % 0.6 Seg Neutrophils % 53.6 Lymphocytes % 27.5 Monocytes % 12.0 Eosinophils % 6.0 Basophils % 0.3 Neutrophils # 1.7 Lymphocytes # 0.9 Monocytes # 0.4 Eosinophils # 0.2 Basophils # 0.0 Reactive Lymphocytes Present A Platelet Estimate Normal Immature Plt Fraction 5.[address] Review ESR Sodium 132 L Potassium 3.9 Chloride 110 H Carbon Dioxide 15 L BUN 31 H Creatinine 0.61 Est GFR ( Amer) > 60 Est GFR (Non-Af Amer) > 60 BUN/Creatinine Ratio 51 H Glucose 92 Calculated Osmolality 280 Calcium 9.1 Total Bilirubin AST ALT Alkaline Phosphatase C-Reactive Protein B-Natriuretic Peptide Serum Total Protein Albumin Globulin Albumin/Globulin Ratio Triglycerides Cholesterol LDL Cholesterol, Calc VLDL Cholesterol, Calc HDL Cholesterol Cholesterol/HDL Ratio Urine Opiates Screen Ur Barbiturates Screen Ur Phencyclidine Scrn Ur Amphetamines Screen U Benzodiazepines Scrn Urine Cocaine Screen U Marijuana (THC) Screen Ur Drug Screen Interp Rheumatoid Factor Histone IgG Antibody 0.8 Chlamy pneumoniae PCR Adenovirus (PCR) B. pertussis DNA (PCR) B.parapertussis DNA PCR Coronavirus OC43 (PCR) Coronavirus HKU1 (PCR) Coronavirus 229E (PCR) Coronavirus NL63 (PCR) Human Metapneumovir PCR Influenza A (H1) PCR Influ A (H1N1/09) PCR Influenza A (H3) PCR Influenza A Untype (PCR) Influenza Type B (PCR) M.pneumoniae DNA (PCR) Parainfluenza 1 (PCR) Parainfluenza 2 (PCR) Parainfluenza 3 (PCR) Parainfluenza 4 (PCR) RSV (PCR) Entero/Rhino (PCR) 3 04/12/18 04/12/18 04/12/18 05:20 05:20 05:20 WBC 4.2 L RBC 3.50 L Hgb 11.3 L Hct 32.2 L MCV 92.0 MCH 32.3 MCHC 35.1 RDW 13.3 Plt Count 173 MPV 11.0 Immature Gran % 0.2 Seg Neutrophils % 71.3 Lymphocytes % 13.2 Monocytes % 8.0 Eosinophils % 7.1 Basophils % 0.2 Neutrophils # 3.0 Lymphocytes # 0.6 Monocytes # 0.3 Eosinophils # 0.3 Basophils # 0.0 Reactive Lymphocytes Platelet Estimate Immature Plt Fraction Smear Path Review ESR Sodium 129 L Potassium 3.3 L Chloride 107 Carbon Dioxide 15 L BUN 43 H Creatinine 0.65 Est GFR ( Amer) > 60 Est GFR (Non-Af Amer) > 60 BUN/Creatinine Ratio 66 H Glucose 101 Calculated Osmolality 279 L Calcium 8.7 Total Bilirubin AST ALT Alkaline Phosphatase C-Reactive Protein B-Natriuretic Peptide Serum Total Protein Albumin Globulin Albumin/Globulin Ratio Triglycerides Cholesterol LDL Cholesterol, Calc VLDL Cholesterol, Calc HDL Cholesterol Cholesterol/HDL Ratio Urine Opiates Screen Ur Barbiturates Screen Ur Phencyclidine Scrn Ur Amphetamines Screen U Benzodiazepines Scrn Urine Cocaine Screen U Marijuana (THC) Screen Ur Drug Screen Interp Rheumatoid Factor < 10 Histone IgG Antibody Chlamy pneumoniae PCR Adenovirus (PCR) B. pertussis DNA (PCR) B.parapertussis DNA PCR Coronavirus OC43 (PCR) Coronavirus HKU1 (PCR) Coronavirus 229E (PCR) Coronavirus NL63 (PCR) Human Metapneumovir PCR Influenza A (H1) PCR Influ A (H1N1/09) PCR Influenza A (H3) PCR Influenza A Untype (PCR) Influenza Type B (PCR) M.pneumoniae DNA (PCR) Parainfluenza 1 (PCR) Parainfluenza 2 (PCR) Parainfluenza 3 (PCR) Parainfluenza 4 (PCR) RSV (PCR) Entero/Rhino (PCR) 3 04/11/18 04/11/18 04/11/18 17:20 17:20 09:58 WBC RBC Hgb Hct MCV MCH MCHC RDW Plt Count MPV Immature Gran % Seg Neutrophils % Lymphocytes % Monocytes % Eosinophils % Basophils % Neutrophils # Lymphocytes # Monocytes # Eosinophils # Basophils # Reactive Lymphocytes Platelet Estimate Immature Plt Fraction Smear Path Review ESR 44 H Sodium 127 L Potassium Chloride Carbon Dioxide BUN Creatinine Est GFR ( Amer) Est GFR (Non-Af Amer) BUN/Creatinine Ratio Glucose Calculated Osmolality Calcium Total Bilirubin AST ALT Alkaline Phosphatase C-Reactive Protein 74 H B-Natriuretic Peptide Serum Total Protein Albumin Globulin Albumin/Globulin Ratio Triglycerides Cholesterol LDL Cholesterol, Calc VLDL Cholesterol, Calc HDL Cholesterol Cholesterol/HDL Ratio Urine Opiates Screen Ur Barbiturates Screen Ur Phencyclidine Scrn Ur Amphetamines Screen U Benzodiazepines Scrn Urine Cocaine Screen U Marijuana (THC) Screen Ur Drug Screen Interp Rheumatoid Factor Histone IgG Antibody Chlamy pneumoniae PCR Adenovirus (PCR) B. pertussis DNA (PCR) B.parapertussis DNA PCR Coronavirus OC43 (PCR) Coronavirus HKU1 (PCR) Coronavirus 229E (PCR) Coronavirus NL63 (PCR) Human Metapneumovir PCR Influenza A (H1) PCR Influ A (H1N1/09) PCR Influenza A (H3) PCR Influenza A Untype (PCR) Influenza Type B (PCR) M.pneumoniae DNA (PCR) Parainfluenza 1 (PCR) Parainfluenza 2 (PCR) Parainfluenza 3 (PCR) Parainfluenza 4 (PCR) RSV (PCR) Entero/Rhino (PCR) 3 04/11/18 04/11/18 04/10/18 03:55 03:55 22:14 WBC 4.6 RBC 3.68 L Hgb 12.0 D Hct 33.9 L MCV 92.1 MCH 32.6 MCHC 35.4 RDW 13.1 Plt Count 175 MPV 11.2 Immature Gran % 0.4 Seg Neutrophils % 80.4 Lymphocytes % 10.6 Monocytes % 6.9 Eosinophils % 1.7 Basophils % 0.0 Neutrophils # 3.7 Lymphocytes # 0.5 L Monocytes # 0.3 Eosinophils # 0.1 Basophils # 0.0 Reactive Lymphocytes Platelet Estimate Immature Plt Fraction Smear Path Review ESR Sodium 124 L 126 L Potassium 3.0 L 3.4 L Chloride 100 98 Carbon Dioxide 13 L 16 L BUN 59 H 67 H Creatinine 0.83 1.01 Est GFR ( Amer) > 60 > 60 Est GFR (Non-Af Amer) > 60 55 L BUN/Creatinine Ratio 71 H 66 H Glucose 146 H 102 Calculated Osmolality 277 L 282 Calcium 8.5 L 9.1 Total Bilirubin 0.5 AST 23 ALT 25 Alkaline Phosphatase 43 C-Reactive Protein B-Natriuretic Peptide Serum Total Protein 5.8 L Albumin 3.0 L Globulin 2.8 Albumin/Globulin Ratio 1.1 Triglycerides 120 Cholesterol 107 LDL Cholesterol, Calc 65 VLDL Cholesterol, Calc 24 HDL Cholesterol 18 L Cholesterol/HDL Ratio 5.9 H Urine Opiates Screen Ur Barbiturates Screen Ur Phencyclidine Scrn Ur Amphetamines Screen U Benzodiazepines Scrn Urine Cocaine Screen U Marijuana (THC) Screen Ur Drug Screen Interp Rheumatoid Factor Histone IgG Antibody Chlamy pneumoniae PCR Adenovirus (PCR) B. pertussis DNA (PCR) B.parapertussis DNA PCR Coronavirus OC43 (PCR) Coronavirus HKU1 (PCR) Coronavirus 229E (PCR) Coronavirus NL63 (PCR) Human Metapneumovir PCR Influenza A (H1) PCR Influ A (H1N1/09) PCR Influenza A (H3) PCR Influenza A Untype (PCR) Influenza Type B (PCR) M.pneumoniae DNA (PCR) Parainfluenza 1 (PCR) Parainfluenza 2 (PCR) Parainfluenza 3 (PCR) Parainfluenza 4 (PCR) RSV (PCR) Entero/Rhino (PCR) 3 04/10/18 20:05 WBC RBC Hgb Hct MCV MCH MCHC RDW Plt Count MPV Immature Gran % Seg Neutrophils % Lymphocytes % Monocytes % Eosinophils % Basophils % Neutrophils # Lymphocytes # Monocytes # Eosinophils # Basophils # Reactive Lymphocytes Platelet Estimate Immature Plt Fraction Smear Path Review ESR Sodium Potassium Chloride Carbon Dioxide BUN Creatinine Est GFR ( Amer) Est GFR (Non-Af Amer) BUN/Creatinine Ratio Glucose Calculated Osmolality Calcium Total Bilirubin AST ALT Alkaline Phosphatase C-Reactive Protein B-Natriuretic Peptide Serum Total Protein Albumin Globulin Albumin/Globulin Ratio Triglycerides Cholesterol LDL Cholesterol, Calc VLDL Cholesterol, Calc HDL Cholesterol Cholesterol/HDL Ratio Urine Opiates Screen Negative Ur Barbiturates Screen Negative Ur Phencyclidine Scrn Negative Ur Amphetamines Screen Negative U Benzodiazepines Scrn Negative Urine Cocaine Screen Negative U Marijuana (THC) Screen Negative Ur Drug Screen Interp See Below Rheumatoid Factor Histone IgG Antibody Chlamy pneumoniae PCR Adenovirus (PCR) B. pertussis DNA (PCR) B.parapertussis DNA PCR Coronavirus OC43 (PCR) Coronavirus HKU1 (PCR) Coronavirus 229E (PCR) Coronavirus NL63 (PCR) Human Metapneumovir PCR Influenza A (H1) PCR Influ A (H1N1/09) PCR Influenza A (H3) PCR Influenza A Untype (PCR) Influenza Type B (PCR) M.pneumoniae DNA (PCR) Parainfluenza 1 (PCR) Parainfluenza 2 (PCR) Parainfluenza 3 (PCR) Parainfluenza 4 (PCR) RSV (PCR) Entero/Rhino (PCR) - Attending Attestation 1. Left lower expected venous stasis ulcer for 1 year had currently she is on a wound VAC with a Bk wrap 2. She was treated with Bactrim 2 weeks ago for the venous stasis ulcer at she developed erythematous rash diffuse lower extremity and upper extremity which blanches with pressure. Since then Bactrim was changed to cefepime last week. Her antibiotic was changed to Metropenem 1 g every 8 hours on 04/15/2018 The erythematous rash could have been from Bactrim. But it does not resolve. Recommend all at a consult possible biopsy if needed 3. Hematology consult is for progressive neutropenia This happened since admission. Neutrophils normal during admission. 700 yesterday and 200 today Hemoglobin and platelets normal Likely the neutropenia is drug induced from antibiotic Bactrim/cefepime But given the rash will make sure there is no underlying bone marrow problem Peripheral smear no blasts Will monitor her counts closely We will check nutritional factors including B12 folate levels and TSH. If necessary consider bone marrow biopsy May also consider Neupogen if necessary Inpatient Charges Provider: Dr. Dorian Hill Consult Charges: 93821
--- NOTE | 2018-04-15 13:12 | Infectious Disease Progress No ---
Date of Encounter: 04/15/18 Time of Encounter: 13:10 - Assessment and Plan (1) Fever Current Visit: Yes Status: Acute Afebrile x 24 hours. Etiology unclear. Clinically, the patient appears to have improved. Continue to monitor closely. Qualifiers: Fever type: unspecified Qualified Code(s): R50.9 - Fever, unspecified (2) Leukopenia Current Visit: Yes Status: Acute Etiology unclear: sepsis vs. medication vs. other. ANC 151. Hem/Onc consulted. Appreciate recommendations. Qualifiers: Leukopenia type: neutropenia Neutropenia type: unspecified Qualified Code (s): D70.9 - Neutropenia, unspecified (3) Venous ulcer of leg Current Visit: No Status: Acute Location: LLE. Etiology: Venous stasis ulcer. Previous wound culture positive for PSEA. Started on Cefepime 03/19/18 after the patient developed a rash while on Bactrim. CT of the LLE showed a subtle periosteal reaction to the tibia adjacent to the soft tissue ulceration. ESR 44, CRP 74. Dressing changes per the wound care clinic recommendations. Continue Meropenem 1 gram IV Q8H. Duration of treatment depends on the clinical picture, but likely 4-6 weeks. Monitor renal function and dose-adjust antibiotics. Qualifiers: Laterality: left Qualified Code(s): I83.029 - Varicose veins of left lower extremity with ulcer of unspecified site; L97.929 - Non-pressure chronic ulcer of unspecified part of left lower leg with unspecified severity; L97.929 - Non- pressure chronic ulcer of unspecified part of left lower leg with unspecified severity; L97.929 - Non-pressure chronic ulcer of unspecified part of left lower leg with unspecified severity; L97.929 - Non-pressure chronic ulcer of unspecified part of left lower leg with unspecified severity (4) PETR (acute kidney injury) Current Visit: Yes Status: Resolved Resolved. (5) Allergy to antibiotic Current Visit: Yes Status: Acute Patient developed rash two weeks ago, presumptively to the Bactrim she was on previously. Patient reports that the rash is minimally improved, but not worse. Continue supportive care. (6) Facial droop Current Visit: Yes Status: Resolved Likely secondary to TIA. Resolved (7) Hyponatremia Current Visit: Yes Status: Acute Management per the primary team. (8) Rash Current Visit: Yes Status: Acute Etiology unclear: antibiotic reaction vs. other. Bactrim stopped last Saturday and Cefepime stopped Saturday. Expect rash to start improving. Currently on Claritin and Pepcid. (9) TIA (transient ischemic attack) Current Visit: Yes Status: Resolved (10) HTN (hypertension) Current Visit: Yes Status: Acute Qualifiers: Hypertension type: essential hypertension Qualified Code(s): I10 - Essential (primary) hypertension (11) Interstitial lung disease Current Visit: Yes Status: Acute CT chest showed findings consistent with interstitial lung disease and fibrosis. Etiology unclear. Pulmonary consult noted and appreciated. Consult rheumatology to evaluate. - Subjective Interval history: Patient seen and examined. No acute events noted overnight. Patient states that overall she feels okay today. Denies fevers, chills, or rigors. Denies chest pain or shortness of breath, but reports a dry hacky cough. Denies nausea, vomiting, or diarrhea. States her stools have been a little loose. Reports relatively poor appetite. Denies abdominal pain or urinary complaints. Complains of pain at the site of the ulcer, but states she is taking pain medication regularly to try to "stay on top of it." Reports her skin rash is a little better but it is not worse. She denies oral thrush. Infect Dis PN-Objective Data - Labs CBC & Chem 7: 04/15/18 04:19 04/15/18 04:19 Labs: Laboratory Results - last 24 hr 04/12/18 04/14/18 04/15/18 05:20 05:22 04:19 WBC 2.0 L 2.1 L RBC 3.31 L 3.68 L Hgb 10.7 L D 12.2 D Hct 30.7 L 34.4 L MCV 92.7 93.5 MCH 32.3 33.2 MCHC 34.9 35.5 RDW 13.4 13.3 Plt Count 184 231 MPV 10.8 10.9 Immature Gran % 0.0 0.0 Seg Neutrophils % 26.1 7.2 Lymphocytes % 54.7 69.8 Monocytes % 14.3 20.5 Eosinophils % 4.4 2.0 Basophils % 0.5 0.5 Neutrophils # 0.5 L 0.2 L Lymphocytes # 1.1 1.5 Monocytes # 0.3 0.4 Eosinophils # 0.1 0.0 Basophils # 0.0 0.0 Platelet Estimate Normal Normal Smear Path Review See Below Sodium Potassium Chloride Carbon Dioxide BUN Creatinine Est GFR ( Amer) Est GFR (Non-Af Amer) BUN/Creatinine Ratio Glucose Calculated Osmolality Calcium Histone IgG Antibody 0.8 04/15/18 04:19 WBC RBC Hgb Hct MCV MCH MCHC RDW Plt Count MPV Immature Gran % Seg Neutrophils % Lymphocytes % Monocytes % Eosinophils % Basophils % Neutrophils # Lymphocytes # Monocytes # Eosinophils # Basophils # Platelet Estimate Smear Path Review Sodium 133 L Potassium 3.7 Chloride 108 H Carbon Dioxide 19 L BUN 20 Creatinine 0.51 L Est GFR ( Amer) > 60 Est GFR (Non-Af Amer) > 60 BUN/Creatinine Ratio 39 H Glucose 108 H Calculated Osmolality 279 L Calcium 8.9 Histone IgG Antibody Cultures: Cultures 04/11/18 17:20 Blood Culture - Preliminary Peripheral Venipuncture Culture is incubating and being continuously monitored for growth. Final report to follow. 04/11/18 17:20 Blood Culture - Preliminary Peripheral Venipuncture Culture is incubating and being continuously monitored for growth. Final report to follow. Exam - Constitutional Vitals: Temp Pulse Resp BP Pulse Ox 98.1 F 75 18 113/71 97 04/15/18 11:47 04/15/18 11:47 04/15/18 07:23 04/15/18 11:47 04/15/18 11:47 General appearance: cooperative, no acute distress, obese - Head Head exam: Present: atraumatic, normal inspection, normocephalic - Eye Eye exam: Present: EOMI, normal appearance, PERRL Pupils: Present: normal accommodation - ENT ENT exam: Present: mucous membranes moist - Neck Neck exam: Present: normal inspection - Respiratory Respiratory exam: Present: CTAB. Absent: rales, respiratory distress, rhonchi, wheezes - Cardiovascular Cardiovascular exam: Present: RRR, +S1, +S2 - GI/Abdominal GI/Abdominal exam: Present: distended (obese), normal bowel sounds, soft. Absent: tenderness - Extremities Exam Extremities exam: Present: tenderness (left lower leg). Absent: joint swelling , pedal edema Additional comments: Pressure dressing noted to the lower left leg with wound VAC dressing intact without leak and 125mm Hg continuous suction noted. - Neurological Exam Neurological exam: Present: alert, oriented X3, no focal deficits - Psychiatric Psychiatric exam: Present: normal affect, normal mood - Skin Skin exam: Present: rash (Diffuse maculopapular rash noted to the trunk and extremities, improved since yesterday.) Consult Discharge Plan - Plan Referrals: Donald Anderson DO [Partnered Physician] - 05/07/18 1:00 pm Elaina Andrade CNP [Primary Care Provider] - 04/21/18 12:30 pm - Attending Attestation I examined this patient and my medical decision-making was reviewed with the Resident Physician. I agree with the documented findings, disposition and treatment plan as described except to the extent set forth below.
--- NOTE | 2018-04-15 13:42 | Internal Med Progress Note ---
<Cain Fuchs S - Last Filed: 04/15/18 13:38> Hospitalist Progress Note - Encounter Date of Encounter: 04/15/18 Time of Encounter: 10:00 - Subjective Interval History: 68 year old female with PMHx of venous stasis ulcer, HTN, and HLD admitted to [facility] for TIA. She states her TIA symptoms have resolved. She is also being treated for a venous stasis ulcer, hyponatremia, rash, and leukopenia. She is doing well today. She states her rash is improving. Patient had a temp of 100.3 three nights ago, and she complains of a nonproductive cough that started around the same time. She admits to chills. She denies TREVIÑO, rhinorrhea, blurred vision, fevers/chills, SOB, CP, abdominal pain, n/v/d, weakness, numbness. - Exam Vitals: Temp Pulse Resp BP Pulse Ox 98.1 F 75 18 113/71 97 04/15/18 11:47 04/15/18 11:47 04/15/18 07:23 04/15/18 11:47 04/15/18 11:47 Exam: Gen: no acute distress, A&O x3 HEENT: moist mucus membranes Heart: RRR, no murmurs Lungs: mild crackles in bases bilaterally Abdomen: soft, non-tender Extremities: wound vac and dressing on left LE, no edema on right LE Vascular: pulses +2 in all extremities Skin: Rash is improving Neuro: no facial droop, CN II-XII intact, sensation intact in all extremities, no focal deficits - Assessment and Plan (1) Venous ulcer of leg Current Visit: No Status: Acute Assessment and Plan: Left lower extremity ID on consult Wound culture positive for Pseudomonas aeruginosa Disontinued cefepime due to rash Continue IV meropenem CT showed subtle periosteal reaction, will likely receive Abx for 4-6 weeks ESR 44, CRP 39 Wound vac changed yesterday Monitor renal function (2) Leukopenia Current Visit: Yes Status: Acute Assessment and Plan: No change in WBC 2 > 2.1 today (69% lymphocytes) Patient had a temp of 100.3 three nights ago Patient developed a cough 3 days ago Patient recently started on meropenem Could be meropenem vs viral vs sepsis Ordered respiratory viral panel Oncology on consult, will follow recommendations Awaiting results of blood smear (3) Hyponatremia Current Visit: Yes Status: Acute Assessment and Plan: Sodium stable today at 133 Discontinued fluids (4) TIA (transient ischemic attack) Current Visit: Yes Status: Resolved (5) Rash Current Visit: Yes Status: Acute Assessment and Plan: Seems to be mildly improved May be 2/2 recent use of bactrim or cefepime Ordered autoimmune labs for possible vasculitis etiology Continue steroids (6) PETR (acute kidney injury) Current Visit: Yes Status: Resolved (7) Hypokalemia Current Visit: Yes Status: Resolved (8) Interstitial lung disease Current Visit: Yes Status: Acute Assessment and Plan: CT showed interstitial lung disease Pulmonology consulted Concern for rheumatologic/vasculitic source with recent use of bactrim, rash, and joint swelling Ordered AUGUSTINE, ANCA, BMP, CBC, Cryoglobulin, Histone Ab, lupus anticoagulant, histoplasma galactomannan, fungitell Continue incentive spirometer Ordered mycoplasma pneumoniae IgM Recommend follow up in 2-3 weeks, will need repeat CT DVT Prophylaxis: Subcutaneous heparin - Time Spent with Patient Total time spent is greater than 50% in coordination of care (as documented) at patient's floor/unit and/or counseling patient: less than 15 minutes Plan of Care Discussed with: patient Internal Medicine: Result - Labs CBC & Chem 7: 04/15/18 04:19 04/15/18 04:19 Labs: Short CBC 04/14/18 04/15/18 Range/Units 05:22 04:19 WBC 2.0 L 2.1 L (4.3-11.1) K/mcL Hgb 10.7 L D 12.2 D (11.5-15.4) g/dL Hct 30.7 L 34.4 L (35.3-44.9) % Plt Count 184 231 (140-400) K/mcL Neutrophils # 0.5 L 0.2 L (1.6-8.9) K/mcL BMP 04/15/18 04:19 Sodium 133 L Potassium 3.7 Chloride 108 H Carbon Dioxide 19 L BUN 20 Creatinine 0.51 L Glucose 108 H Calcium 8.9 - ABG Interpretation ABG results: PT/INR, D-dimer PT 13.0 Seconds (9.4-12.1) H 04/10/18 10:09 Consult Discharge Plan - Plan Referrals: Donald Anderson DO [Partnered Physician] - 05/07/18 1:00 pm Elaina Andrade, [employer] [Primary Care Provider] - 04/21/18 12:30 pm <Kaila Rodrigez - Last Filed: 04/15/18 17:23> Hospitalist Progress Note - Encounter Date of Encounter: 04/15/18 - Exam Vitals: Temp Pulse Resp BP Pulse Ox 97.8 F 74 18 115/78 98 04/15/18 16:30 04/15/18 16:30 04/15/18 07:23 04/15/18 16:30 04/15/18 16:30 - Assessment and Plan (1) Venous ulcer of leg Current Visit: No Status: Acute (2) Hyponatremia Current Visit: Yes Status: Acute (3) TIA (transient ischemic attack) Current Visit: Yes Status: Resolved (4) PETR (acute kidney injury) Current Visit: Yes Status: Resolved (5) Rash Current Visit: Yes Status: Acute (6) Hypokalemia Current Visit: Yes Status: Resolved (7) Leukopenia Current Visit: Yes Status: Acute (8) Interstitial lung disease Current Visit: Yes Status: Acute - Time Spent with Patient Total time spent is greater than 50% in coordination of care (as documented) at patient's floor/unit and/or counseling patient: Internal Medicine: Result - Labs CBC & Chem 7: 04/15/18 04:19 04/15/18 04:19 Labs: Short CBC 04/15/18 Range/Units 04:19 WBC 2.1 L (4.3-11.1) K/mcL Hgb 12.2 D (11.5-15.4) g/dL Hct 34.4 L (35.3-44.9) % Plt Count 231 (140-400) K/mcL Neutrophils # 0.2 L (1.6-8.9) K/mcL BMP 04/15/18 04:19 Sodium 133 L Potassium 3.7 Chloride 108 H Carbon Dioxide 19 L BUN 20 Creatinine 0.51 L Glucose 108 H Calcium 8.9 - ABG Interpretation ABG results: PT/INR, D-dimer PT 13.0 Seconds (9.4-12.1) H 04/10/18 10:09 - Attending Attestation I examined this patient and my medical decision-making was reviewed with the Resident Physician Dr. Fuchs. I agree with the documented findings, disposition and treatment plan as described except to the extent set forth below. Ms. Crespo is 68 year old female with PMHx of venous stasis ulcer, HTN, and HLD admitted to [facility] for TIA. She does have chronic LLE venous stasis ulcer for which she had wound vac and on chronic abx therapy as an out pt with Bactrim and Cefepime. Pt did develop diffuse papular rash later. Now she is off the Bactrim and Cefepime, and ID placed her on Meropenem. Her rash seems to be improving now. She does have neutropenia , which might be due to sepsis and Abx induced. Cont close monitoring for now. <Cain Fuchs - Last Filed: 04/15/18 13:38> (1) Venous ulcer of leg Qualifiers: Laterality: left Qualified Code(s): I83.029 - Varicose veins of left lower extremity with ulcer of unspecified site; L97.929 - Non-pressure chronic ulcer of unspecified part of left lower leg with unspecified severity; L97.929 - Non- pressure chronic ulcer of unspecified part of left lower leg with unspecified severity; L97.929 - Non-pressure chronic ulcer of unspecified part of left lower leg with unspecified severity; L97.929 - Non-pressure chronic ulcer of unspecified part of left lower leg with unspecified severity (2) Leukopenia Qualifiers: Leukopenia type: neutropenia Neutropenia type: unspecified Qualified Code(s) : D70.9 - Neutropenia, unspecified <Thallapaneni,Rambabu - Last Filed: 04/15/18 17:23> (1) Venous ulcer of leg Qualifiers: Laterality: left Qualified Code(s): I83.029 - Varicose veins of left lower extremity with ulcer of unspecified site; L97.929 - Non-pressure chronic ulcer of unspecified part of left lower leg with unspecified severity; L97.929 - Non- pressure chronic ulcer of unspecified part of left lower leg with unspecified severity; L97.929 - Non-pressure chronic ulcer of unspecified part of left lower leg with unspecified severity; L97.929 - Non-pressure chronic ulcer of unspecified part of left lower leg with unspecified severity (7) Leukopenia Qualifiers: Leukopenia type: neutropenia Neutropenia type: unspecified Qualified Code(s) : D70.9 - Neutropenia, unspecified
[2018-04-15 15:28] LABS: Adenovirus Not Detected (Not Detect); Bordetella Pertussis Not Detected (Not Detect); Chlamydophila pneumoniae Not Detected (Not Detect); Coronavirus 229E Not Detected (Not Detect); Coronavirus HKU1 Not Detected (Not Detect); Coronavirus NL63 Not Detected (Not Detect); Coronavirus OC43 Not Detected (Not Detect); Human Metapneumovirus Not Detected (Not Detect); Human Rhinovirus/Enterovirus Not Detected (Not Detect); Influenza A Subtype 2009 H1 Not Detected (Not Detect); Influenza A Untypeable Not Detected (Not Detect); Influenza B Not Detected (Not Detect); Mycoplasma pneumoniae Not Detected (Not Detect); Parainfluenza Virus 1 Not Detected (Not Detect); Parainfluenza Virus 2 Not Detected (Not Detect); Parainfluenza Virus 3 Not Detected (Not Detect); Parainfluenza Virus 4 Not Detected (Not Detect); Respiratory Syncytial Virus Not Detected (Not Detect)
--- NOTE | 2018-04-15 16:21 | Pulmonology Progress Note ---
Date of Encounter: 04/15/18 Time of Encounter: 11:30 Assessment and Plan (1) Abnormal CT scan of lung Current Visit: Yes Status: Chronic Has this syndrome groundglass opacity with very minimal subpleural fibrotic changes which is very nonspecific pattern. This groundglass opacities can be due to her underlying diastolic dysfunction patient does not have any significant pulmonary symptoms except for a cough which is consulted by this chronic postnasal drip triggering at as an outpatient in 6-8 weeks will do further workup with PFTs and HRCT. I spoke with the patient answered all the questions and verbalized the plan to her she she understands to keep up for follow-up with pulmonology. Please call with questions condition changes we will sign off for now please arrange outpatient follow-up in 6-8 weeks. (2) TIA (transient ischemic attack) Current Visit: Yes Status: Resolved Waiting for vasculitis workup. (3) Venous ulcer of leg Current Visit: No Status: Acute Management according to infectious disease doctor. Qualifiers: Laterality: left Qualified Code(s): I83.029 - Varicose veins of left lower extremity with ulcer of unspecified site; L97.929 - Non-pressure chronic ulcer of unspecified part of left lower leg with unspecified severity; L97.929 - Non- pressure chronic ulcer of unspecified part of left lower leg with unspecified severity; L97.929 - Non-pressure chronic ulcer of unspecified part of left lower leg with unspecified severity; L97.929 - Non-pressure chronic ulcer of unspecified part of left lower leg with unspecified severity Subjective Principal diagnosis: TIA Interval history: Patient is doing well no active pulmonary symptoms cough is getting better patient says she is feeling better denies any chest pain, chest tightness will need to increase her activities to see any shortness of breath on exertion is off late she is not moving that much because of her chronic venous leg ulcer. Denies any fever or chills today denies any other constitutional symptoms. Objective PUL Vital signs: Last Vital Signs Temp 98.1 F 04/15/18 11:47 Pulse 75 04/15/18 11:47 Resp 18 04/15/18 07:23 BP 113/71 04/15/18 11:47 Pulse Ox 97 04/15/18 11:47 Auscultation: bilateral: clear Extremities: other (chronic venous ulcer on the left leg ) Results - Laboratory Findings CBC and BMP: 04/15/18 04:19 04/15/18 04:19 PT/INR, D-dimer PT 13.0 Seconds (9.4-12.1) H 04/10/18 10:09 Abnormal lab findings: Abnormal lab results WBC 2.1 K/mcL (4.3-11.1) L 04/15/18 04:19 RBC 3.68 M/mcL (3.82-4.97) L 04/15/18 04:19 Hct 34.4 % (35.3-44.9) L 04/15/18 04:19 Neutrophils # 0.2 K/mcL (1.6-8.9) L 04/15/18 04:19 Reactive Lymphocytes Present (Not Present) A 04/13/18 05:21 ESR 44 mm/hr (0-15) H 04/11/18 17:20 PT 13.0 Seconds (9.4-12.1) H 04/10/18 10:09 APTT 25.9 Seconds (26.0-36.0) L 04/10/18 10:09 Sodium 133 mEq/L (136-145) L 04/15/18 04:19 Chloride 108 mEq/L (98-107) H 04/15/18 04:19 Carbon Dioxide 19 mEq/L (23-29) L 04/15/18 04:19 Creatinine 0.51 mg/dL (0.60-1.20) L 04/15/18 04:19 BUN/Creatinine Ratio 39 (6-26) H 04/15/18 04:19 Glucose 108 mg/dL (70-105) H 04/15/18 04:19 POC Glucose 149 mg/dL (70-99) H 04/10/18 10:08 Calculated Osmolality 279 (280-300) L 04/15/18 04:19 C-Reactive Protein 39 mg/L (Less than 10) H 04/14/18 05:22 B-Natriuretic Peptide 210 pg/mL (Less than 100) H 04/14/18 11:42 Serum Total Protein 5.8 g/dL (6.4-8.9) L 04/11/18 03:55 Albumin 3.0 g/dL (3.5-5.7) L 08/17/18 03:55 HDL Cholesterol 18 mg/dL (40-59) L 04/11/18 03:55 Cholesterol/HDL Ratio 5.9 (0-4.9) H 04/11/18 03:55 Urine Clarity Slightly Cloudy (Clear) A 04/10/18 14:00 Urine Protein 100 mg/dL (Neg-Trace) H 04/10/18 14:00 Urine Blood Moderate (Negative) H 04/10/18 14:00 Urine Microscopic WBC 3-5 per hpf (0-3) H 04/10/18 14:00 Ur Squamous Epith Cells Many per lpf (None-Few) H 04/10/18 14:00 Urine Bacteria Many per hpf (None-Few) H 04/10/18 14:00 - Clinical Findings Intake & Output: Intake & Output 04/15/18 04/15/18 04/15/18 07:59 15:59 23:59 Intake Total 730 / 730 Balance 730 / 730 Weight 87.2 kg Consult Discharge Plan - Plan Referrals: Donald Anderson DO [Partnered Physician] - 05/07/18 1:00 pm Elaina Andrade, MARY CARMEN [Primary Care Provider] - 04/21/18 12:30 pm
[2018-04-16 05:19] LABS: Hematocrit 35.5 % (35.3-44.9); Hemoglobin 12.3 g/dL (11.5-15.4); Lymphocytes # 1.9 K/mcL (0.6-4.6); Mean Corpuscular HGB Conc 34.6 g/dL (31.6-35.5); Mean Corpuscular Hemoglobin 32.6 pg (28.0-33.3); Mean Corpuscular Volume 94.2 fL (83.0-100.0); Monocytes # 0.5 K/mcL (0.0-1.3); Neutrophils # 0.1 K/mcL (1.6-8.9); Platelet Count 225 K/mcL (140-400); Red Blood Count 3.77 M/mcL (3.82-4.97); Red Cell Distribution Width 13.2 % (11.5-14.5)
[2018-04-16 05:29] LABS: BUN/Creatinine Ratio 38 (6-26); Blood Urea Nitrogen 19 mg/dL (8-23); Calcium 9.3 mg/dL (8.6-10.3); Carbon Dioxide 20 mEq/L (23-29); Chloride 110 mEq/L (98-107); Glucose 93 mg/dL (70-105); Osmolality,Calculated 272 (280-300); Potassium 3.7 mEq/L (3.5-5.1); Sodium 130 mEq/L (136-145); eGFR For Non-African Americans > 60 (> 60)
[2018-04-16 05:32] LABS: % Iron Saturation 17 % (15-50); Iron 45 mcg/dL (50-170); Lactate Dehydrogenase 172 Units/L (140-271); Transferrin 190 mg/dL (203-362)
[2018-04-16 05:52] LABS: Ferritin 438 ng/mL (10-120)
[2018-04-16 05:59] LABS: Folate 5.2 ng/mL (3.0-16.0)
[2018-04-16 06:05] LABS: Platelet Estimate Normal (Normal)
[2018-04-16] MEDS: *HR* Heparin 5,000 UNIT/ML VIAL SQ SCH ×2 (06:28→17:25)
[2018-04-16] MEDS: Meropenem 1,000 MG in Water for inj. (sterile) 20 ML 10 ML IVP SCH ×2 (08:23→16:05)
[2018-04-16] MEDS: Aspirin 325 MG TABLET PO SCH (08:24)
[2018-04-16] MEDS: predniSONE 20 MG TABLET PO SCH (08:24)
[2018-04-16] MEDS: Famotidine 20 MG TABLET PO SCH ×2 (08:24→21:03)
[2018-04-16] MEDS: Loratadine 10 MG TABLET PO SCH (08:24)
--- NOTE | 2018-04-16 09:12 | Rheumatology Consult Note ---
<Consuelo Jarvis - Last Filed: 04/16/18 11:31> Date of Encounter: 04/16/18 Time of Encounter: 09:11 Rheumatology Assess and Plan (1) Interstitial lung disease Current Visit: Yes Status: Acute Interstitial lung disease and fibrosis in the lower lobes bilaterally demonstrated by chest CT. Concern for possible autoimmune etiology. Autoimmmune differential includes rheumatoid arthritis, scleroderma, Sjogren's, dermatomyositis, polyangiitis granulomatosis. Agree with labs that have been ordered such as rheumatoid factor, histone antibody, AUGUSTINE, ANCA. She admits shortness of breath when exerting herself along with cough when taking a deep breath, occasional dry mouth. Patient denies history of joint pain/ stiffness, joint swelling, raynauds, dry eyes, muscle weakness, frequent sinus infection, ear infections, frequent lower respiratory tract infections, hematuria, rash. She has elevated inflammatory markers. Will order further tests of CCP, anti-SSA, complements C3 and C4, anti-Alejandrina, and CK. Labs will take about a week to result so we will plan to follow up with the patient in our office in about a week. Our office will make the appointment. Thank you for consult and allowing us to be part of this patients care. (2) Venous ulcer of leg Current Visit: No Status: Acute Left lower extremity venous ulcer likely chronic but will evaluate for autimmune etiology including but not limited to microscopic polyangiitis. -labs as above Qualifiers: Laterality: left Qualified Code(s): I83.029 - Varicose veins of left lower extremity with ulcer of unspecified site; L97.929 - Non-pressure chronic ulcer of unspecified part of left lower leg with unspecified severity; L97.929 - Non- pressure chronic ulcer of unspecified part of left lower leg with unspecified severity; L97.929 - Non-pressure chronic ulcer of unspecified part of left lower leg with unspecified severity; L97.929 - Non-pressure chronic ulcer of unspecified part of left lower leg with unspecified severity (3) Rash Current Visit: Yes Status: Acute Diffuse non-blanching erythematous rash that is most likely secondary to antibiotic bactrim. She has never had bactrim or sulfa medication in past. She developed the rash shortly after receiving bactrim. Also consider infectious etiology. Rash is improving. (4) Protein, urine, abnormal presence Current Visit: Yes Status: Acute Protein in urinalysis. Concern for possible nephrotic syndrome. Will order protein/creatinine ratio. (5) Leukopenia Current Visit: Yes Status: Acute Neutropenic leukopenia likely secondary to medication but also consider infection. Management per primary team. Qualifiers: Leukopenia type: neutropenia Neutropenia type: unspecified Qualified Code (s): D70.9 - Neutropenia, unspecified Rheumatology HPI Consult date: 04/16/18 Requesting physician: Arelis Godwin Consult reason: Interstitial lung disease, joint pain, rash, leukopenia Chief complaint: Slurred speech History of present illness: Ms. Crespo is a 68 year old female with past medical history of hypertension presented to [facility] due to facial droop and slurred speech all of which have resolved. Rheumatology was consulted for evaluation of interstitial lung disease demonstrated by chest CT with concerns of possible autoimmune etiology. She admits occasional dry mouth, shortness of breath when exerting herself along with cough when taking a deep breath. She is being treated for a left lower extremity ulcer for over a year now, and she has had an ulcer in the past which has healed. The patient denies raynauds, joint pain, morning stiffness in joints, frequent sinus infections, frequent upper respiratory infection, ear infections, hematuria, rash, muscle weakness, dry eyes. She denies a family history of autoimmune disease. Of note, while admitted she received Bactrim and soon afterwards she developed a diffuse and she erythematous rash which is improving. She is on antibiotics for an ulcer on her left lower extremity. Past Med Surg Social Fam HX - Past Medical History Attestation: Yes The following information was validated with the patient. Source: patient Medical history: hyperlipidemia, hypertension, venous stasis Additional medical history: Superficial Phlebitis Psychiatric history: no psych history - Past Surgical History Surgical History: appendectomy, orthopedic, other Additional surgical history: fx rt knee repair - Social History Smoking Status: Never smoker Smokeless Tobacco Status: No Alcohol use: none Drug use: none - Family History Mother Living Status: Hx Family Neurologic Disorders: Yes (CVA) Father Hx Family Endocrine Disorder: Yes (DM) Medications and Allergies Losartan/Hydrochlorothiazide [Losartan-Hctz 100-25 mg Tab] 1 tab PO DAILY [History] Cefepime HCl [Maxipime] 2 gm IV BID 04/10/18 [History] Ibuprofen [Motrin Ib] 400 mg PO BID PRN 04/10/18 [History] 3 Allergy/AdvReac Type Severity Reaction Status Date / Time sulfamethoxazole Allergy Hives Verified 04/10/18 11:33 [From Bactrim] trimethoprim [From Bactrim] Allergy Hives Verified 04/10/18 11:33 All Systems Review: The remainder of the systems were reviewed and are negative Review of Systems: - Constitutional: Denies weight loss, generalized fatigue - Head/Neck: Denies TREVIÑO, neck stiffness - EENT: Denies vision changes/blurriness, rhinorrhea, congestion, sore throat - CVS: Denies chest pain - Pulm: admits SOB, cough Denies sputum, hematemesis, wheezing - GI: Denies abdominal pain - : Denies dysuria, hematuria - MSK: Denies raynauds, joint pain, limited ROM, weakness - Skin: denies rashes, color changes, itching, admits ulcer Rheumatology Exam Vital Signs, Last 4 Hours Temp Pulse Resp BP Pulse Ox 04/16/18 06:42 98.1 F 86 18 125/83 95 Exam: Gen.: Vitals noted. No acute distress. AAOx3 HEENT: oropharynx clear, Normocephalic, atraumatic Cardiac: RRR, no murmur, +S1/S2 Pulmonary: crackles in bases bilaterally, no wheezes, rhonchi, equal chest expansion skin: diffuse non blanching erythematous rash MSK: ROM intact, minimal joint swelling of right 2nd and 3rd MCP Extremities: + right LE edema, nontender calf, no cyanosis or clubbing, left lower extremity ulcer Neuro: A&Ox3, moves all extremities, no focal deficits, no weakness Psych: Appropriate mood and behavior Rheumatology Results 04/16/18 04:24 04/16/18 04:24 Immunology Rheumatoid Factor < 10 IU/mL (Less than 14) 04/12/18 05:20 Histone IgG Antibody 0.8 Units (0.0-0.9) 04/12/18 05:20 All other labs normal. Consult Discharge Plan - Plan Referrals: Donald Anderson DO [Partnered Physician] - 05/07/18 1:00 pm Elaina Andrade, CUSTODY ASSISTANT [Primary Care Provider] - 04/21/18 12:30 pm <Tyrone Santos - Last Filed: 04/16/18 12:34> Date of Encounter: 04/16/18 Rheumatology HPI History of present illness: Ms. Crespo is a 68 year old female All Systems Review: The remainder of the systems were reviewed and are negative Rheumatology Exam Vital Signs, Last 4 Hours Temp Pulse Resp BP Pulse Ox 04/16/18 11:08 97.7 F 78 16 108/70 90 Rheumatology Results 04/16/18 04:24 04/16/18 04:24 Immunology Rheumatoid Factor < 10 IU/mL (Less than 14) 04/12/18 05:20 Histone IgG Antibody 0.8 Units (0.0-0.9) 04/12/18 05:20 All other labs normal. - Attending Attestation I examined this patient and my medical decision making was reviewed with the resident physician. I agree with the documented findings, disposition and treatment as described with these exceptions. Susan Crespo is a 68-year-old female with PMH of HTN, HLD, lower extremity ulceration who initially presented to [place] with symptoms of a TIA; she was found to have a venous ulcer on the leg, fevers, leukopenia and pulmonary fibrosis. CT - Patchy fibrosis in lower lobs. CBC - initially WBC normal and now with leukopenia. UA minimal protein. ESR/CRP elevated Cultures negative. RF negative. At this time, Susan is being treated for infectious causes of the venous ulcer; she has had a subsequent rash that may be a drug reaction. Leukopenia/neutropenia now followed by hematology. Interstitial disease is minimal; unclear if there is an underlying autoimmune component, but will complete serologies that are associated with ILD and await their results. I would repeat UA or add protein:cr ratio to make sure no worrisome proteinuria. No indication for immunosuppression and no obvious autoimmune disease at this time. Will likely follow-up in clinic to review results. Will stop by tomorrow if she still is here to reevaluate.
[2018-04-16 10:53] LABS: APTT (LE Anticoag) 46 sec (32-48); Diluted Russell Viper Venom 28 sec (33-44); PT (LE-Anticoag) 15.4 sec (12.0-15.5)
--- NOTE | 2018-04-16 12:08 | Dermatology Consult Note ---
Date of Encounter: 04/16/18 Time of Encounter: 12:04 History of Present Illness Reason for Consult: Rash History of Present Illness: Susan Crespo, is a 68-year-old female admitted to the hospital for symptoms of TIA. Since her admission, she was found to be neutropenic. She has a history of a venous stasis ulcer on her left lower leg and has been treated in the wound clinic. She is currently undergoing treatment with a wound VAC. She reports that about a few weeks ago bacteria was found on the wound and she was started on cefepime. Bactrim was added about a week ago and she immediately noticed a red rash all over her body. She is severely intermittently itchy. Bactrim and cefipime were discontinued. She was started on prednisone and hydrocortisone cream with great improvement. She denies ocular involvement. She denies genital and oral mucosal involvement. She has a history of perleche treated with Mycolog with some improvement in the past. Review of Systems General/Constitutional: Patient denies fevers, chills, nor recent unintended weight loss, night sweats, no change in appetite or malaise. Hematologic: Patient denies new or enlarging lumps or bumps. Past Med Surg Social Fam HX - Past Medical History Medical history: hyperlipidemia, hypertension, venous stasis Additional medical history: Superficial Phlebitis Psychiatric history: no psych history - Past Surgical History Surgical History: appendectomy, orthopedic, other Additional surgical history: fx rt knee repair - Social History Smoking Status: Never smoker Smokeless Tobacco Status: No Alcohol use: none Drug use: none - Family History Mother Living Status: Hx Family Neurologic Disorders: Yes (CVA) Father Hx Family Endocrine Disorder: Yes (DM) Medications and Allergies Losartan/Hydrochlorothiazide [Losartan-Hctz 100-25 mg Tab] 1 tab PO DAILY [History] Cefepime HCl [Maxipime] 2 gm IV BID 04/10/18 [History] Ibuprofen [Motrin Ib] 400 mg PO BID PRN 04/10/18 [History] 3 Allergy/AdvReac Type Severity Reaction Status Date / Time sulfamethoxazole Allergy Hives Verified 04/10/18 11:33 [From Bactrim] trimethoprim [From Bactrim] Allergy Hives Verified 04/10/18 11:33 Examination Vital Signs: Temp Pulse Resp BP Pulse Ox 97.7 F 78 16 108/70 90 04/16/18 11:08 04/16/18 11:08 04/16/18 11:08 04/16/18 11:08 04/16/18 11:08 The patient appears alert, oriented X 3, in no acute distress, healthy-appearing , normal mood.A detailed skin examination of sites including; scalp, head, neck , face, conjunctiva, lids, lips, back, chest/breast/axilla, abdomen, bilateral upper extremities including hands/digits/ fingernails, bilateral lower extremities including feet,/digits/toenails, groin/ buttock,, was completed and found to be normal except: scrotal tongue - red and hyperpigmented faded patches on dorsal upper arms, forearms bilaterally, shoulders, back, buttocks, abdominal folds, thighs (with areas of sparing) , lower legs bilaterally - light scale over hyperpigmented areas on thighs General Examination: The patient appears alert, oriented X3, in no acute distress, healthy-appearing , normal mood. A detailed skin examination of sites including: scalp, head, neck , face, conjunctive, lids, lips, back, chest/breast/axilla, abdomen, bilateral upper extremities including hands/digits/fingernails, bilateral lower extremities including feet/digits/toenails, genital/groin/buttock, lymph nodes, was completed and found to be normal except: - Assessment and Plan (1) Rash and other nonspecific skin eruption Current Visit: Yes Status: Acute Punch biopsy was taken today and sent to [facility] for further review to rule out medication reaction versus connective tissue disease versus leukemia cutis Continue topical hydrocortisone as well as oral prednisone for symptoms Patient follow-up made in dermatology clinic in 2 weeks for suture removal Procedure: Dermatology Date of procedure: 04/16/18 Procedure: Punch biopsy(s) of the lesion noted above to establish and confirm diagnosis. The procedure, risks, benefits, alternatives and expected outcomes were discussed with the patient and consent was obtained. Time out called. Patient identified, procedure verified, site(s) identified and verified. Patient and staff present in agreement. Area(s) prepped with alcohol and anesthetized with 1.0% lidocaine with epinephrine at 1:100,000 concentration. 1 ml of lidocaine with epinephrine were injected left forearm. Biopsy(s) of lesion performed. Lesion(s) closed with 4-0 prolene suture and bandaging applied. Specimen(s) sent to pathology. Patient instructed in routine post-op care. Patient instructed in routine post-op care and wound care handout given. Consult Discharge Plan - Plan Referrals: Donald Anderson DO [Partnered Physician] - 05/07/18 1:00 pm Elaina Andrade CNP [Primary Care Provider] - 04/21/18 12:30 pm
--- NOTE | 2018-04-16 12:51 | Infectious Disease Progress No ---
Date of Encounter: 04/16/18 Time of Encounter: 12:49 - Assessment and Plan (1) Fever Status: Resolved Afebrile x 48 hours. Etiology unclear: infectious vs. inflammatory vs. rheumatologic vs. other. Clinically, the patient appears to have improved. Continue to monitor closely. Qualifiers: Fever type: unspecified Qualified Code(s): R50.9 - Fever, unspecified (2) Leukopenia Status: Resolved Etiology unclear: sepsis vs. medication vs. other. WBC improved, but ANC continues to drop. ANC 100. Hem/Onc consulted. Appreciate recommendations. Qualifiers: Leukopenia type: neutropenia Neutropenia type: unspecified Qualified Code (s): D70.9 - Neutropenia, unspecified (3) Venous ulcer of leg Status: Acute Location: LLE. Etiology: Venous stasis ulcer. Previous wound culture positive for PSEA. Started on Cefepime 03/19/18 after the patient developed a rash while on Bactrim. CT of the LLE showed a subtle periosteal reaction to the tibia adjacent to the soft tissue ulceration. ESR 44, CRP 74. Dressing changes per the wound care clinic recommendations. Continue Meropenem 1 gram IV Q8H. Duration of treatment depends on the clinical picture, but likely 4-6 weeks. Monitor renal function and dose-adjust antibiotics. Qualifiers: Laterality: left Qualified Code(s): I83.029 - Varicose veins of left lower extremity with ulcer of unspecified site; L97.929 - Non-pressure chronic ulcer of unspecified part of left lower leg with unspecified severity; L97.929 - Non- pressure chronic ulcer of unspecified part of left lower leg with unspecified severity; L97.929 - Non-pressure chronic ulcer of unspecified part of left lower leg with unspecified severity; L97.929 - Non-pressure chronic ulcer of unspecified part of left lower leg with unspecified severity (4) PETR (acute kidney injury) Status: Resolved Resolved. (5) Allergy to antibiotic Status: Acute Patient developed rash two weeks ago, presumptively to the Bactrim she was on previously. Patient reports that the rash is improved, but still very itchy. Continue supportive care. Dermatology consulted and punch biopsy performed. Await results. (6) Facial droop Status: Resolved Likely secondary to TIA. Resolved (7) Hyponatremia Status: Resolved Management per the primary team. (8) Rash Status: Resolved Etiology unclear: antibiotic reaction vs. other. Bactrim stopped last Saturday and Cefepime stopped Saturday. Expect rash to start improving. Currently on Claritin and Pepcid. (9) TIA (transient ischemic attack) Status: Resolved (10) HTN (hypertension) Status: Chronic Qualifiers: Hypertension type: essential hypertension Qualified Code(s): I10 - Essential (primary) hypertension (11) Interstitial lung disease Status: Chronic CT chest showed findings consistent with interstitial lung disease and fibrosis. Etiology unclear. Pulmonary consult noted and appreciated. Rheumatology consulted and following. Appreciate recommendations. - Subjective Interval history: Patient seen and examined. No acute events noted overnight. Patient states that overall she feels okay today. Denies fevers, chills, or rigors. Denies chest pain or shortness of breath, but reports a dry hacky cough. Denies nausea, vomiting, or diarrhea. States her stools have been a little loose. Reports relatively poor appetite. Denies abdominal pain or urinary complaints. Complains of pain at the site of the ulcer, but states she is taking pain medication regularly to try to "stay on top of it." Reports her skin rash is getting better, but still itchy. She denies oral thrush. Infect Dis PN-Objective Data - Labs CBC & Chem 7: 04/22/18 04:20 04/22/18 04:20 Labs: Laboratory Results - last 24 hr 04/15/18 04/16/18 04/16/18 11:54 04:24 04:24 WBC 2.5 L RBC 3.77 L Hgb 12.3 Hct 35.5 MCV 94.2 MCH 32.6 MCHC 34.6 RDW 13.2 Plt Count 225 MPV 12.0 Seg Neutrophils % 4.0 Lymphocytes % 76.0 Monocytes % 20.0 Neutrophils # 0.1 L Lymphocytes # 1.9 Monocytes # 0.5 Platelet Estimate Normal Sodium 130 L Potassium 3.7 Chloride 110 H Carbon Dioxide 20 L BUN 19 Creatinine 0.50 L Est GFR ( Amer) > 60 Est GFR (Non-Af Amer) > 60 BUN/Creatinine Ratio 38 H Glucose 93 Calculated Osmolality 272 L Calcium 9.3 Iron % Saturation Transferrin Ferritin Lactate Dehydrogenase Vitamin B12 Folate Chlamy pneumoniae PCR Not Detected Adenovirus (PCR) Not Detected B. pertussis DNA (PCR) Not Detected B.parapertussis DNA PCR Not Detected Coronavirus OC43 (PCR) Not Detected Coronavirus HKU1 (PCR) Not Detected Coronavirus 229E (PCR) Not Detected Coronavirus NL63 (PCR) Not Detected Human Metapneumovir PCR Not Detected Influenza A (H1) PCR Not Detected Influ A (H1N1/09) PCR Not Detected Influenza A (H3) PCR Not Detected Influenza A Untype (PCR) Not Detected Influenza Type B (PCR) Not Detected M.pneumoniae DNA (PCR) Not Detected Parainfluenza 1 (PCR) Not Detected Parainfluenza 2 (PCR) Not Detected Parainfluenza 3 (PCR) Not Detected Parainfluenza 4 (PCR) Not Detected RSV (PCR) Not Detected Entero/Rhino (PCR) Not Detected 04/16/18 04/16/18 04:24 04:24 WBC RBC Hgb Hct MCV MCH MCHC RDW Plt Count MPV Seg Neutrophils % Lymphocytes % Monocytes % Neutrophils # Lymphocytes # Monocytes # Platelet Estimate Sodium Potassium Chloride Carbon Dioxide BUN Creatinine Est GFR ( Amer) Est GFR (Non-Af Amer) BUN/Creatinine Ratio Glucose Calculated Osmolality Calcium Iron 45 L % Saturation 17 Transferrin 190 L Ferritin 438 H Lactate Dehydrogenase 172 Vitamin B12 362 Folate 5.2 Chlamy pneumoniae PCR Adenovirus (PCR) B. pertussis DNA (PCR) B.parapertussis DNA PCR Coronavirus OC43 (PCR) Coronavirus HKU1 (PCR) Coronavirus 229E (PCR) Coronavirus NL63 (PCR) Human Metapneumovir PCR Influenza A (H1) PCR Influ A (H1N1/09) PCR Influenza A (H3) PCR Influenza A Untype (PCR) Influenza Type B (PCR) M.pneumoniae DNA (PCR) Parainfluenza 1 (PCR) Parainfluenza 2 (PCR) Parainfluenza 3 (PCR) Parainfluenza 4 (PCR) RSV (PCR) Entero/Rhino (PCR) Cultures: Cultures 04/11/18 17:20 Blood Culture - Preliminary Peripheral Venipuncture Culture is incubating and being continuously monitored for growth. Final report to follow. 04/11/18 17:20 Blood Culture - Preliminary Peripheral Venipuncture Culture is incubating and being continuously monitored for growth. Final report to follow. Serology 04/15/18 Range/Units 11:54 Chlamy pneumoniae PCR Not Detected (Not Detect) Adenovirus (PCR) Not Detected (Not Detect) B. pertussis DNA (PCR) Not Detected (Not Detect) B.parapertussis DNA PCR Not Detected (Not Detect) Coronavirus OC43 (PCR) Not Detected (Not Detect) Coronavirus HKU1 (PCR) Not Detected (Not Detect) Coronavirus 229E (PCR) Not Detected (Not Detect) Coronavirus NL63 (PCR) Not Detected (Not Detect) Human Metapneumovir PCR Not Detected (Not Detect) Influenza A (H1) PCR Not Detected (Not Detect) Influ A (H1N1/09) PCR Not Detected (Not Detect) Influenza A (H3) PCR Not Detected (Not Detect) Influenza A Untype (PCR) Not Detected (Not Detect) Influenza Type B (PCR) Not Detected (Not Detect) M.pneumoniae DNA (PCR) Not Detected (Not Detect) Parainfluenza 1 (PCR) Not Detected (Not Detect) Parainfluenza 2 (PCR) Not Detected (Not Detect) Parainfluenza 3 (PCR) Not Detected (Not Detect) Parainfluenza 4 (PCR) Not Detected (Not Detect) RSV (PCR) Not Detected (Not Detect) Entero/Rhino (PCR) Not Detected (Not Detect) Exam - Constitutional Vitals: Temp Pulse Resp BP Pulse Ox 97.7 F 78 16 108/70 90 04/16/18 11:08 04/16/18 11:08 04/16/18 11:08 04/16/18 11:08 04/16/18 11:08 General appearance: average body habitus, cooperative, no acute distress - Head Head exam: Present: atraumatic, normal inspection, normocephalic - Eye Eye exam: Present: EOMI, normal appearance, PERRL Pupils: Present: normal accommodation - ENT ENT exam: Present: mucous membranes moist - Neck Neck exam: Present: normal inspection - Respiratory Respiratory exam: Present: CTAB. Absent: rales, respiratory distress, rhonchi, wheezes - Cardiovascular Cardiovascular exam: Present: RRR, +S1, +S2 - GI/Abdominal GI/Abdominal exam: Present: normal bowel sounds, soft. Absent: distended, tenderness - Extremities Exam Extremities exam: Absent: joint swelling, pedal edema, tenderness Additional comments: LLE compression dressing with wound VAC noted to the posterior calf with 125mm Hg continuous suction without evidence of leak. No drainage noted in the canister. - Neurological Exam Neurological exam: Present: alert, oriented X3, no focal deficits - Psychiatric Psychiatric exam: Present: normal affect, normal mood - Skin Skin exam: Present: dry, intact, normal color, rash (Erythematous rash noted to the extremities and trunk, improved.), warm Consult Discharge Plan - Plan Instructions: Prednisone (By mouth), Hydrocortisone (On the skin), Tramadol ( By mouth), Rivaroxaban (By mouth), Transient Ischemic Attack (DC), Hyponatremia (DC), Peripheral Vascular Disorders (DC), Chronic Hypertension (DC) Additional Instructions: Please go get blood drawn on 04/28/18. Prescription given to you. Take prescription with you to lab. Midline to left upper arm stays in place for IV antibiotics at home. [facility] to maintain this and give antibiotics through. Wound Vac to left lower extremity. Wound Clinic to change today (04/22/18) and you have an appt (04/24/18) @ 10:30am at wound clinic to change this also. Referrals: Catracho Galarza MD [Partnered Physician] - 04/30/18 1:00 pm Donald Anderson DO [Partnered Physician] - 05/07/18 1:00 pm Phi Calles MD [Partnered Physician] - (appt.requested ) Elaina Andrade, GLASS TECHNICIAN/INSTALLER [Primary Care Provider] - 04/30/18 12:30 pm Yulia Gates MD [Partnered Physician] - 04/30/18 2:40 pm Prescriptions: Aspirin 81 mg PO DAILY 30 Days #30 tab.chew Aspirin Enteric Coated [Aspirin EC] 81 mg PO DAILY 30 Days #30 tablet. Hydrocortisone 1% CREAM [Cortaid] 1 appl TP BID #1 bottle predniSONE [PredniSONE] 10 mg PO DAILY 3 Days #3 tablet Rivaroxaban [Xarelto] 1 dose PO AD 30 Days pack Tramadol HCl [Ultram] 50 mg PO TID PRN 7 Days #21 tab PRN Reason: chronic pain - Attending Attestation I examined this patient and my medical decision-making was reviewed with the Resident Physician. I agree with the documented findings, disposition and treatment plan as described except to the extent set forth below.
--- NOTE | 2018-04-16 13:23 | Oncology Inp Progress Note ---
<DanishRachel Isidro - Last Filed: 04/16/18 16:11> Date of Encounter: 04/16/18 Time of Encounter: 12:00 (1) Leukopenia Current Visit: Yes Status: Acute Assessment and plan: Acute on admission Peripheral smear obtained-appears benign with no blasts Nutritional stores appear adequate LDH normal No other cell lines affects ANC decreased further to 100 today Plan: Continue to monitor CBC Neutropenia etiology may be drug induced secondary to ATB vs. infection vs. inflammatory/autoimmune process vs. malignancy Suspect neutropenia is not of malignant etiology given overall clinical picture May consider bone marrow biopsy if necessary-continue to monitor CBC at this time May consider Neupogen following bone marrow if necessary Qualifiers: Leukopenia type: neutropenia Neutropenia type: unspecified Qualified Code (s): D70.9 - Neutropenia, unspecified (2) Rash and other nonspecific skin eruption Current Visit: Yes Status: Acute Assessment and plan: Etiology unclear, secondary to ATB reaction, autoimmune process, or other Rash in presence of neutropenia may be concerning for underlying bone marrow etiology Plan: Consulted dermatology for assessment punch biopsy to rule out leukemia cutis Oncology: Subj Interval history: Ms. Crespo is sitting up in the chair today. She reports feels well overall. She denies chest pain, SOB, nausea, vomiting, diarrhea, constipation, fever, chills , night sweats. Overall has poor appetite. Reports continued pain to LE ulcer. Patient feels as though her rash is improving, rash is itchy and worse at night , using hydrocortisone PRN. - Constitutional Vitals: Vital Signs Temp Pulse Resp BP Pulse Ox 04/16/18 11:08 97.7 F 78 16 108/70 90 04/16/18 06:42 98.1 F 86 18 125/83 95 04/16/18 04:13 76 16 130/89 96 04/16/18 00:49 68 16 124/79 95 04/15/18 20:00 98.4 F 79 17 104/66 97 04/15/18 16:30 97.8 F 74 115/78 98 Intake and Output 04/15/18 04/16/18 04/16/18 23:59 07:59 15:59 Intake Total 300 / 300 240 / 240 Output Total 0 / 0 1150 / 1150 200 / 200 Balance 300 / 300 -1140 / -1140 40 / 40 Intake: IV Fluids Merrem 1,000 MG In Water for inj. (sterile) 10 ML @ 120 mls/ hr IVP Q8HR [facility] Rx#:[id number] Oral 290 / 290 240 / 240 Output: Urine 0 / 0 1150 / 1150 200 / 200 Other: Meal Dinner Breakfast Percent of Meal Consumed 100% 95% Weight 87.1 kg Patient Weight 04/16/18 23:59 Weight 87.1 kg General appearance: cooperative, no acute distress, no febrile - Head Head exam: Present: atraumatic - ENT ENT exam: Present: mucous membranes moist - Respiratory Respiratory exam: Present: CTAB. Absent: respiratory distress - Cardiovascular Cardiovascular exam: Present: RRR, +S1, +S2 - GI/Abdominal GI/Abdominal exam: Present: normal bowel sounds, soft. Absent: tenderness - Extremities Exam Extremities exam: Present: normal inspection. Absent: calf tenderness - Neurological Exam Neurological exam: Present: alert, oriented X3, strengths equal and symetr throughout. Absent: no focal deficits - Psychiatric Psychiatric exam: Present: normal affect, normal mood - Skin Skin exam: Present: rash Additional comments: erythematous rash noted to trunk and extremities, appears improved since yesterday Oncology: Obj Data - Labs CBC & Chem 7: 04/16/18 04:24 04/16/18 04:24 - ABG Interpretation ABG results: PT/INR, D-dimer PT 13.0 Seconds (9.4-12.1) H 04/10/18 10:09 Consult Discharge Plan - Plan Referrals: Donald Anderson DO [Partnered Physician] - 05/07/18 1:00 pm Elaina Andrade CNP [Primary Care Provider] - 04/21/18 12:30 pm Inpatient Charges Provider: Dr. Dorian Hill <Zen iHll S - Last Filed: 04/17/18 13:15> Date of Encounter: 04/16/18 Time of Encounter: 02:00 - Constitutional Vitals: Vital Signs Temp Pulse Resp BP Pulse Ox 04/17/18 10:45 98.2 F 73 16 105/70 90 04/17/18 06:27 98.1 F 76 16 107/61 04/17/18 05:49 97.6 F 80 15 131/78 92 04/17/18 01:01 97.9 F 71 16 132/88 92 04/16/18 19:10 97.9 F 85 24 134/79 04/16/18 15:59 97.9 F 78 16 133/76 94 Intake and Output 04/16/18 04/17/18 04/17/18 23:59 07:59 15:59 Intake Total 60 / 60 130 / 130 0 / 0 Output Total 0 / 0 1250 / 1250 500 / 500 Balance 60 / 60 -1120 / -1120 -500 / -500 Intake: IV Fluids Merrem 1,000 MG In Water for inj. (sterile) 10 ML @ 120 mls/ hr IVP Q8HR [facility] Rx#:[id number] Oral 50 / 50 120 / 120 0 / 0 Output: Urine 0 / 0 1250 / 1250 500 / 500 Other: Meal Breakfast Percent of Meal Consumed 0% Stool Size Moderate Stool Color Brown # Bowel Movements 1 Weight 87.4 kg Patient Weight 04/17/18 23:59 Weight 87.4 kg Oncology: Obj Data - Labs CBC & Chem 7: 04/17/18 04:39 04/17/18 04:39 Labs: Laboratory Results - last 24 hr 04/11/18 04/12/18 04/12/18 10:09 05:20 05:20 WBC RBC Hgb Hct MCV MCH MCHC RDW Plt Count MPV Immature Gran % Seg Neutrophils % Lymphocytes % Monocytes % Eosinophils % Basophils % Neutrophils # Lymphocytes # Monocytes # Eosinophils # Basophils # Nucleated RBCs/100 WBC Reactive Lymphocytes Platelet Estimate Polychromasia Heparin Neutralization Thrombin Time Plt Neutralization Lupus Anticoag INR Lupus Anticoag aPTT LA PTT Mix Pt/Norm 1:1 Dil Allan Viper Venom LA dRVVT Confirm dRVVT Mix LA Reptilase Time Hexag Phospholip Neutrl Lupus Anticoag Interp Sodium Potassium Chloride Carbon Dioxide BUN Creatinine Est GFR ( Amer) Est GFR (Non-Af Amer) BUN/Creatinine Ratio Glucose Calculated Osmolality Calcium Urine Creatinine Protein/Creatinin Ratio Urine Total Protein Cryoglobulin NEG 72HOUR AUGUSTINE Titer 1:160 H ANCA IgG <1:20 Beta-(1,3)-D-Glucan B-(1,3)-D-Glucan Intrp 04/12/18 04/14/18 04/16/18 05:20 11:42 14:45 WBC RBC Hgb Hct MCV MCH MCHC RDW Plt Count MPV Immature Gran % Seg Neutrophils % Lymphocytes % Monocytes % Eosinophils % Basophils % Neutrophils # Lymphocytes # Monocytes # Eosinophils # Basophils # Nucleated RBCs/100 WBC Reactive Lymphocytes Platelet Estimate Polychromasia Heparin Neutralization NOT APPLICABLE Thrombin Time NOT APPLICABLE Plt Neutralization NOT APPLICABLE Lupus Anticoag INR 15.4 Lupus Anticoag aPTT 46 LA PTT Mix Pt/Norm 1:1 NOT APPLICABLE Dil Allan Viper Venom 28 L LA dRVVT Confirm NOT APPLICABLE dRVVT Mix NOT APPLICABLE LA Reptilase Time NOT APPLICABLE Hexag Phospholip Neutrl NOT APPLICABLE Lupus Anticoag Interp SEE NOTE Sodium Potassium Chloride Carbon Dioxide BUN Creatinine Est GFR ( Amer) Est GFR (Non-Af Amer) BUN/Creatinine Ratio Glucose Calculated Osmolality Calcium Urine Creatinine 49 Protein/Creatinin Ratio 1.10 H Urine Total Protein 54 H Cryoglobulin AUGUSTINE Titer ANCA IgG Beta-(1,3)-D-Glucan 35 B-(1,3)-D-Glucan Intrp NEGATIVE 04/17/18 04/17/18 04:39 04:39 WBC 2.1 L RBC 3.49 L Hgb 11.5 Hct 32.6 L MCV 93.4 MCH 33.0 MCHC 35.3 RDW 13.2 Plt Count 293 MPV 11.2 Immature Gran % 0.9 Seg Neutrophils % 1.8 Lymphocytes % 72.9 Monocytes % 23.4 Eosinophils % 0.5 Basophils % 0.5 Neutrophils # 0.0 L Lymphocytes # 1.5 Monocytes # 0.5 Eosinophils # 0.0 Basophils # 0.0 Nucleated RBCs/100 WBC 0.9 H Reactive Lymphocytes Present A Platelet Estimate Normal Polychromasia 1+ A Heparin Neutralization Thrombin Time Plt Neutralization Lupus Anticoag INR Lupus Anticoag aPTT LA PTT Mix Pt/Norm 1:1 Dil Allan Viper Venom LA dRVVT Confirm dRVVT Mix LA Reptilase Time Hexag Phospholip Neutrl Lupus Anticoag Interp Sodium 131 L Potassium 3.8 Chloride 104 Carbon Dioxide 20 L BUN 17 Creatinine 0.40 L Est GFR ( Amer) > 60 Est GFR (Non-Af Amer) > 60 BUN/Creatinine Ratio 43 H Glucose 92 Calculated Osmolality 273 L Calcium 9.4 Urine Creatinine Protein/Creatinin Ratio Urine Total Protein Cryoglobulin AUGUSTINE Titer ANCA IgG Beta-(1,3)-D-Glucan B-(1,3)-D-Glucan Intrp - ABG Interpretation ABG results: PT/INR, D-dimer PT 13.0 Seconds (9.4-12.1) H 04/10/18 10:09 Inpatient Charges Provider: Dr. Dorian Hill Follow Up: [id number] - Attending Attestation I examined this patient and my medical decision-making was reviewed with the Advanced Practice Nurse. I agree with the documented findings, disposition and treatment plan as described except to the extent set forth below. 1. Acute neutropenia. Neutrophil counts were normal on admission last 4 days they have dropped. Currently agranulocytosis Likely this is from antibiotics Bactrim/cefepime She does have maculopapular rash both lower activity and upper extremities. Dermatology consult noted. Point biopsy done and results pending She is afebrile. At this time we will proceed with bone marrow biopsy to establish diagnosis. Would start Neupogen 300 g subcutaneous daily after bone marrow biopsy 2. Chronic venous ulcer left leg on wound VAC and Metropenem per ID
--- NOTE | 2018-04-16 17:11 | Internal Med Progress Note ---
<ShilaCain - Last Filed: 04/16/18 17:07> Hospitalist Progress Note - Encounter Date of Encounter: 04/16/18 Time of Encounter: 10:30 - Subjective Interval History: 68 year old female with PMHx of venous stasis ulcer, HTN, and HLD admitted to [facility] for TIA. She states her TIA symptoms have resolved. She is also being treated for a venous stasis ulcer, hyponatremia, rash, and leukopenia. She is doing well today. She states her rash is improving. She denies TREVIÑO, rhinorrhea , blurred vision, fevers/chills, SOB, CP, abdominal pain, n/v/d, weakness, numbness. - Exam Vitals: Temp Pulse Resp BP Pulse Ox 97.9 F 78 16 133/76 94 04/16/18 15:59 04/16/18 15:59 04/16/18 15:59 04/16/18 15:59 04/16/18 15:59 Exam: Gen: no acute distress, A&O x3 HEENT: moist mucus membranes Heart: RRR, no murmurs Lungs: mild crackles in bases bilaterally Abdomen: soft, non-tender Extremities: wound vac and dressing on left LE, no edema on right LE Vascular: pulses +2 in all extremities Skin: rash is improving Neuro: no facial droop, CN II-XII intact, sensation intact in all extremities, no focal deficits - Assessment and Plan (1) Venous ulcer of leg Current Visit: No Status: Acute Assessment and Plan: Left lower extremity ID on consult Wound culture positive for Pseudomonas aeruginosa Disontinued cefepime due to rash Continue IV meropenem CT showed subtle periosteal reaction, will likely receive Abx for 4-6 weeks ESR 44, CRP 39 Wound vac changes, per wound care Monitor renal function (2) Leukopenia Current Visit: Yes Status: Acute Assessment and Plan: No change in WBC 2.1 > 2.5 today (69% lymphocytes) ANC dropped 200 > 100 today Patient had a temp of 100.3 four nights ago Patient developed a cough 4 days ago Patient recently started on meropenem Could be meropenem vs viral vs sepsis Respiratory viral panel negative Oncology on consult, will follow recommendations Peripheral blood smear - benign with no blasts May consider bone marrow biopsy, continue to monitor CBC May consider neupogen injection following bone marrow biopsy if necessary (3) Rash Current Visit: Yes Status: Acute Assessment and Plan: Seems to be mildly improved May be 2/2 recent use of bactrim or cefepime, autoimmune Rash with neutropenia may be concerning for underlying bone marrow etiology Dermatology consulted for punch biopsy to rule out leukemia cutis - Bx sent to [facility] for evaluation Ordered autoimmune labs Continue topical hydrocortisone and oral prednisone (4) Hyponatremia Current Visit: Yes Status: Acute Assessment and Plan: Sodium 133 > 130 today Continue to monitor Discontinued fluids (5) TIA (transient ischemic attack) Current Visit: Yes Status: Resolved Assessment and Plan: CT normal MRI showed vertebral artery stenosis Echo pending Carotid US prelim report showed non-stenotic plaques bilaterally LDL 65 Urine drug screen negative PT/OT consulted, will remove gonzalez catheter if mobility approved by PT/OT Continue aspirin 325mg daily Neurology signed off Symptoms have resolved No further intervention needed (6) PETR (acute kidney injury) Current Visit: Yes Status: Resolved Assessment and Plan: Resolved (7) Hypokalemia Current Visit: Yes Status: Resolved Assessment and Plan: replace as needed. (8) Interstitial lung disease Current Visit: Yes Status: Acute Assessment and Plan: CT showed interstitial lung disease Patient has a cough, but denies SOB Concern for rheumatologic/vasculitic source with recent use of bactrim, rash, and joint swelling Ordered AUGUSTINE, BMP, CBC, Cryoglobulin, Histone Ab, lupus anticoagulant, histoplasma galactomannan, fungitell Rheumatology consulted, ordered CCP, complement 3 + 4, ANCA, and SSA, will follow up outpatient Continue incentive spirometer Ordered mycoplasma pneumoniae IgM Pulmonology signed off Recommend follow up in 6-8 weeks for PFTs and HRCT, will need repeat CT DVT Prophylaxis: Subcutaneous heparin - Time Spent with Patient Total time spent is greater than 50% in coordination of care (as documented) at patient's floor/unit and/or counseling patient: 25 - 35 minutes Plan of Care Discussed with: patient Internal Medicine: Result - Labs CBC & Chem 7: 04/16/18 04:24 04/16/18 04:24 Labs: Short CBC 04/16/18 Range/Units 04:24 WBC 2.5 L (4.3-11.1) K/mcL Hgb 12.3 (11.5-15.4) g/dL Hct 35.5 (35.3-44.9) % Plt Count 225 (140-400) K/mcL Neutrophils # 0.1 L (1.6-8.9) K/mcL BMP 04/16/18 04:24 Sodium 130 L Potassium 3.7 Chloride 110 H Carbon Dioxide 20 L BUN 19 Creatinine 0.50 L Glucose 93 Calcium 9.3 - ABG Interpretation ABG results: PT/INR, D-dimer PT 13.0 Seconds (9.4-12.1) H 04/10/18 10:09 Consult Discharge Plan - Plan Referrals: Donald Anderson DO [Partnered Physician] - 05/07/18 1:00 pm Elaina Andrade CNP [Primary Care Provider] - 04/21/18 12:30 pm <Kaila Rodrigez - Last Filed: 04/16/18 17:46> Hospitalist Progress Note - Encounter Date of Encounter: 04/16/18 - Exam Vitals: Temp Pulse Resp BP Pulse Ox 97.9 F 78 16 133/76 94 04/16/18 15:59 04/16/18 15:59 04/16/18 15:59 04/16/18 15:59 04/16/18 15:59 - Assessment and Plan (1) Venous ulcer of leg Current Visit: No Status: Acute (2) Hyponatremia Current Visit: Yes Status: Acute (3) TIA (transient ischemic attack) Current Visit: Yes Status: Resolved (4) PETR (acute kidney injury) Current Visit: Yes Status: Resolved (5) Rash Current Visit: Yes Status: Acute (6) Hypokalemia Current Visit: Yes Status: Resolved (7) Leukopenia Current Visit: Yes Status: Acute (8) Interstitial lung disease Current Visit: Yes Status: Acute - Time Spent with Patient Total time spent is greater than 50% in coordination of care (as documented) at patient's floor/unit and/or counseling patient: Internal Medicine: Result - Labs CBC & Chem 7: 04/16/18 04:24 04/16/18 04:24 Labs: Short CBC 04/16/18 Range/Units 04:24 WBC 2.5 L (4.3-11.1) K/mcL Hgb 12.3 (11.5-15.4) g/dL Hct 35.5 (35.3-44.9) % Plt Count 225 (140-400) K/mcL Neutrophils # 0.1 L (1.6-8.9) K/mcL BMP 04/16/18 04:24 Sodium 130 L Potassium 3.7 Chloride 110 H Carbon Dioxide 20 L BUN 19 Creatinine 0.50 L Glucose 93 Calcium 9.3 - ABG Interpretation ABG results: PT/INR, D-dimer PT 13.0 Seconds (9.4-12.1) H 04/10/18 10:09 - Attending Attestation I examined this patient and my medical decision-making was reviewed with the Resident Physician Dr. Fuchs. I agree with the documented findings, disposition and treatment plan as described except to the extent set forth below. Ms. Crespo is 68 year old female with PMHx of venous stasis ulcer, HTN, and HLD admitted to [facility] for TIA. She does have chronic LLE venous stasis ulcer for which she had wound vac and on chronic abx therapy as an out pt with Bactrim and Cefepime. Pt did develop diffuse papular rash later. Now she is off the Bactrim and Cefepime, and ID placed her on Meropenem. Her rash seems to be improving now. She does have neutropenia , which might be due to sepsis and Abx induced. No events over night. No cough / SOB Gen: A, A, O x 3 Skin : improving maculo papular rash Chest: Diminished BS b/l no wheezing, no crackles Heart: S1S2+ RRR a/p 1. Sepsis with Pneumonia and Left lower ext venous stasis ulcer 2. Pneumonia - bacterial cont IV abx Meropenem 3. Acute neutropenia still worsening ANC cont neutropenic precautions scheduled for bone marrow biopsy in AM.. if that is negative consider Neupogen inj 4. Diffuse maculo papular rash mostly Abx induced improving cont steroids skin biopsy - P <ShilaCain Segundo - Last Filed: 04/16/18 17:07> (1) Venous ulcer of leg Qualifiers: Laterality: left Qualified Code(s): I83.029 - Varicose veins of left lower extremity with ulcer of unspecified site; L97.929 - Non-pressure chronic ulcer of unspecified part of left lower leg with unspecified severity; L97.929 - Non- pressure chronic ulcer of unspecified part of left lower leg with unspecified severity; L97.929 - Non-pressure chronic ulcer of unspecified part of left lower leg with unspecified severity; L97.929 - Non-pressure chronic ulcer of unspecified part of left lower leg with unspecified severity (2) Leukopenia Qualifiers: Leukopenia type: neutropenia Neutropenia type: unspecified Qualified Code(s) : D70.9 - Neutropenia, unspecified <Kaila Rodrigez - Last Filed: 04/16/18 17:46> (1) Venous ulcer of leg Qualifiers: Laterality: left Qualified Code(s): I83.029 - Varicose veins of left lower extremity with ulcer of unspecified site; L97.929 - Non-pressure chronic ulcer of unspecified part of left lower leg with unspecified severity; L97.929 - Non- pressure chronic ulcer of unspecified part of left lower leg with unspecified severity; L97.929 - Non-pressure chronic ulcer of unspecified part of left lower leg with unspecified severity; L97.929 - Non-pressure chronic ulcer of unspecified part of left lower leg with unspecified severity (7) Leukopenia Qualifiers: Leukopenia type: neutropenia Neutropenia type: unspecified Qualified Code(s) : D70.9 - Neutropenia, unspecified
[2018-04-16 17:40] LABS: Protein/Creatinine Ratio,Urine 1.1 mg/mg (0.00-0.20)
[2018-04-17] MEDS: Meropenem 1,000 MG in Water for inj. (sterile) 20 ML 10 ML IVP SCH ×3 (01:39→16:26)
[2018-04-17] MEDS: *HR* Heparin 5,000 UNIT/ML VIAL SQ SCH (05:05)
[2018-04-17 05:30] LABS: Basophils % 0.5 %; Eosinophils % 0.5 %; Hematocrit 32.6 % (35.3-44.9); Hemoglobin 11.5 g/dL (11.5-15.4); Immature Granulocytes % 0.9 % (0-4); Lymphocytes % 72.9 %; Mean Corpuscular HGB Conc 35.3 g/dL (31.6-35.5); Mean Corpuscular Volume 93.4 fL (83.0-100.0); Mean Platelet Volume 11.2 fL (9.4-12.4); Monocytes # 0.5 K/mcL (0.0-1.3); Monocytes % 23.4 %; Nucleated Red Blood Cells 0.9 /100 WBC (0); Platelet Count 293 K/mcL (140-400); Red Blood Count 3.49 M/mcL (3.82-4.97); Red Cell Distribution Width 13.2 % (11.5-14.5); Segmented Neutrophils % 1.8 %
[2018-04-17 05:31] LABS: Lymphocytes # 1.5 K/mcL (0.6-4.6)
[2018-04-17 05:50] LABS: BUN/Creatinine Ratio 43 (6-26); Blood Urea Nitrogen 17 mg/dL (8-23); Calcium 9.4 mg/dL (8.6-10.3); Carbon Dioxide 20 mEq/L (23-29); Chloride 104 mEq/L (98-107); Glucose 92 mg/dL (70-105); Osmolality,Calculated 273 (280-300); Potassium 3.8 mEq/L (3.5-5.1); Sodium 131 mEq/L (136-145); eGFR For Non-African Americans > 60 (> 60)
[2018-04-17 05:54] LABS: Polychromasia 1+ (Not Present)
[2018-04-17 05:55] LABS: Reactive Lymphocytes Present (Not Present)
[2018-04-17 05:56] LABS: Platelet Estimate Normal (Normal)
[2018-04-17] MEDS: Loratadine 10 MG TABLET PO SCH (08:45)
[2018-04-17] MEDS: Famotidine 20 MG TABLET PO SCH ×2 (08:45→21:43)
[2018-04-17] MEDS: predniSONE 20 MG TABLET PO SCH (08:45)
[2018-04-17] MEDS: Aspirin 325 MG TABLET PO SCH (08:45)
--- NOTE | 2018-04-17 11:16 | Infectious Disease Progress No ---
Date of Encounter: 04/17/18 Time of Encounter: 10:20 - Assessment and Plan (1) Fever Current Visit: Yes Status: Acute Afebrile x 72hours. Etiology unclear: infectious vs. inflammatory vs. rheumatologic vs. other. Clinically, the patient appears to have improved. Continue to monitor closely. Qualifiers: Fever type: unspecified Qualified Code(s): R50.9 - Fever, unspecified (2) Leukopenia Current Visit: Yes Status: Acute Etiology unclear: sepsis vs. medication vs. other. WBC improved, but ANC continues to drop. ANC 37 Hem/Onc consulted. Appreciate recommendations. Planning for bone marrow biopsy later today. Qualifiers: Leukopenia type: neutropenia Neutropenia type: unspecified Qualified Code (s): D70.9 - Neutropenia, unspecified (3) Venous ulcer of leg Current Visit: No Status: Acute Location: LLE. Etiology: Venous stasis ulcer. Previous wound culture positive for PSEA. Started on Cefepime 03/19/18 after the patient developed a rash while on Bactrim. CT of the LLE showed a subtle periosteal reaction to the tibia adjacent to the soft tissue ulceration. ESR 44, CRP 74. Dressing changes per the wound care clinic recommendations. Continue Meropenem 1 gram IV Q8H. Duration of treatment depends on the clinical picture, but likely 4-6 weeks. Monitor renal function and dose-adjust antibiotics. Qualifiers: Laterality: left Qualified Code(s): I83.029 - Varicose veins of left lower extremity with ulcer of unspecified site; L97.929 - Non-pressure chronic ulcer of unspecified part of left lower leg with unspecified severity; L97.929 - Non- pressure chronic ulcer of unspecified part of left lower leg with unspecified severity; L97.929 - Non-pressure chronic ulcer of unspecified part of left lower leg with unspecified severity; L97.929 - Non-pressure chronic ulcer of unspecified part of left lower leg with unspecified severity (4) PETR (acute kidney injury) Current Visit: Yes Status: Resolved Resolved. (5) Allergy to antibiotic Current Visit: Yes Status: Acute Patient developed rash two weeks ago, presumptively to the Bactrim she was on previously. Patient reports that the rash is improved, but still very itchy. Continue supportive care. Dermatology consulted and punch biopsy performed. Await results. (6) Facial droop Current Visit: Yes Status: Resolved Likely secondary to TIA. Resolved (7) Hyponatremia Current Visit: Yes Status: Acute Management per the primary team. (8) Rash Current Visit: Yes Status: Acute Etiology unclear: antibiotic reaction vs. other. Bactrim stopped last Saturday and Cefepime stopped Saturday. Expect rash to start improving. Currently on Claritin and Pepcid. (9) TIA (transient ischemic attack) Current Visit: Yes Status: Resolved (10) HTN (hypertension) Current Visit: Yes Status: Acute Qualifiers: Hypertension type: essential hypertension Qualified Code(s): I10 - Essential (primary) hypertension (11) Interstitial lung disease Current Visit: Yes Status: Acute CT chest showed findings consistent with interstitial lung disease and fibrosis. Etiology unclear. Pulmonary consult noted and appreciated. Rheumatology consulted and following. Appreciate recommendations. - Subjective Interval history: Patient seen and examined. No acute events noted overnight. Patient states that overall she feels okay today. Denies fevers, chills, or rigors. Denies chest pain or shortness of breath, but reports a dry hacky cough. Denies nausea, vomiting, or diarrhea. States her stools have been a little loose. Reports relatively poor appetite. Denies abdominal pain or urinary complaints. Complains of pain at the site of the ulcer. Reports her skin rash is getting better, but still itchy. She denies oral thrush. Reports pain at the previous site of her RUE midline, which was discontinued last night. Infect Dis PN-Objective Data - Labs CBC & Chem 7: 04/17/18 04:39 04/17/18 04:39 Labs: Laboratory Results - last 24 hr 04/11/18 04/12/18 04/12/18 10:09 05:20 05:20 WBC RBC Hgb Hct MCV MCH MCHC RDW Plt Count MPV Immature Gran % Seg Neutrophils % Lymphocytes % Monocytes % Eosinophils % Basophils % Neutrophils # Lymphocytes # Monocytes # Eosinophils # Basophils # Nucleated RBCs/100 WBC Reactive Lymphocytes Platelet Estimate Polychromasia Heparin Neutralization Thrombin Time Plt Neutralization Lupus Anticoag INR Lupus Anticoag aPTT LA PTT Mix Pt/Norm 1:1 Dil Allan Viper Venom LA dRVVT Confirm dRVVT Mix LA Reptilase Time Hexag Phospholip Neutrl Lupus Anticoag Interp Sodium Potassium Chloride Carbon Dioxide BUN Creatinine Est GFR ( Amer) Est GFR (Non-Af Amer) BUN/Creatinine Ratio Glucose Calculated Osmolality Calcium Creatine Kinase Urine Creatinine Protein/Creatinin Ratio Urine Total Protein Cryoglobulin NEG 72HOUR AUGUSTINE Titer 1:160 H ANCA IgG <1:20 Beta-(1,3)-D-Glucan B-(1,3)-D-Glucan Intrp 04/12/18 04/14/18 04/16/18 05:20 11:42 12:02 WBC RBC Hgb Hct MCV MCH MCHC RDW Plt Count MPV Immature Gran % Seg Neutrophils % Lymphocytes % Monocytes % Eosinophils % Basophils % Neutrophils # Lymphocytes # Monocytes # Eosinophils # Basophils # Nucleated RBCs/100 WBC Reactive Lymphocytes Platelet Estimate Polychromasia Heparin Neutralization NOT APPLICABLE Thrombin Time NOT APPLICABLE Plt Neutralization NOT APPLICABLE Lupus Anticoag INR 15.4 Lupus Anticoag aPTT 46 LA PTT Mix Pt/Norm 1:1 NOT APPLICABLE Dil Allan Viper Venom 28 L LA dRVVT Confirm NOT APPLICABLE dRVVT Mix NOT APPLICABLE LA Reptilase Time NOT APPLICABLE Hexag Phospholip Neutrl NOT APPLICABLE Lupus Anticoag Interp SEE NOTE Sodium Potassium Chloride Carbon Dioxide BUN Creatinine Est GFR ( Amer) Est GFR (Non-Af Amer) BUN/Creatinine Ratio Glucose Calculated Osmolality Calcium Creatine Kinase 11 L Urine Creatinine Protein/Creatinin Ratio Urine Total Protein Cryoglobulin AUGUSTINE Titer ANCA IgG Beta-(1,3)-D-Glucan 35 B-(1,3)-D-Glucan Intrp NEGATIVE 04/16/18 04/17/18 04/17/18 14:45 04:39 04:39 WBC 2.1 L RBC 3.49 L Hgb 11.5 Hct 32.6 L MCV 93.4 MCH 33.0 MCHC 35.3 RDW 13.2 Plt Count 293 MPV 11.2 Immature Gran % 0.9 Seg Neutrophils % 1.8 Lymphocytes % 72.9 Monocytes % 23.4 Eosinophils % 0.5 Basophils % 0.5 Neutrophils # 0.0 L Lymphocytes # 1.5 Monocytes # 0.5 Eosinophils # 0.0 Basophils # 0.0 Nucleated RBCs/100 WBC 0.9 H Reactive Lymphocytes Present A Platelet Estimate Normal Polychromasia 1+ A Heparin Neutralization Thrombin Time Plt Neutralization Lupus Anticoag INR Lupus Anticoag aPTT LA PTT Mix Pt/Norm 1:1 Dil Allan Viper Venom LA dRVVT Confirm dRVVT Mix LA Reptilase Time Hexag Phospholip Neutrl Lupus Anticoag Interp Sodium 131 L Potassium 3.8 Chloride 104 Carbon Dioxide 20 L BUN 17 Creatinine 0.40 L Est GFR ( Amer) > 60 Est GFR (Non-Af Amer) > 60 BUN/Creatinine Ratio 43 H Glucose 92 Calculated Osmolality 273 L Calcium 9.4 Creatine Kinase Urine Creatinine 49 Protein/Creatinin Ratio 1.10 H Urine Total Protein 54 H Cryoglobulin AUGUSTINE Titer ANCA IgG Beta-(1,3)-D-Glucan B-(1,3)-D-Glucan Intrp Cultures: Cultures 04/11/18 17:20 Blood Culture - Final Peripheral Venipuncture No growth. Final report. 04/11/18 17:20 Blood Culture - Final Peripheral Venipuncture No growth. Final report. Serology 04/16/18 04/15/18 04/14/18 Range/Units 14:45 11:54 11:42 Urine Creatinine 49 mg/dL Protein/Creatinin Ratio 1.10 H (0.00-0.20) mg/mg Urine Total Protein 54 H (1-14) mg/dL Chlamy pneumoniae PCR Not Detected (Not Detect) Adenovirus (PCR) Not Detected (Not Detect) B. pertussis DNA (PCR) Not Detected (Not Detect) B.parapertussis DNA PCR Not Detected (Not Detect) Coronavirus OC43 (PCR) Not Detected (Not Detect) Coronavirus HKU1 (PCR) Not Detected (Not Detect) Coronavirus 229E (PCR) Not Detected (Not Detect) Coronavirus NL63 (PCR) Not Detected (Not Detect) Human Metapneumovir PCR Not Detected (Not Detect) Influenza A (H1) PCR Not Detected (Not Detect) Influ A (H1N1/09) PCR Not Detected (Not Detect) Influenza A (H3) PCR Not Detected (Not Detect) Influenza A Untype (PCR) Not Detected (Not Detect) Influenza Type B (PCR) Not Detected (Not Detect) M.pneumoniae DNA (PCR) Not Detected (Not Detect) Parainfluenza 1 (PCR) Not Detected (Not Detect) Parainfluenza 2 (PCR) Not Detected (Not Detect) Parainfluenza 3 (PCR) Not Detected (Not Detect) Parainfluenza 4 (PCR) Not Detected (Not Detect) RSV (PCR) Not Detected (Not Detect) Entero/Rhino (PCR) Not Detected (Not Detect) Beta-(1,3)-D-Glucan 35 pg/mL B-(1,3)-D-Glucan Intrp NEGATIVE (Negative) Exam - Constitutional Vitals: Temp Pulse Resp BP Pulse Ox 98.2 F 73 16 105/70 90 04/17/18 10:45 04/17/18 10:45 04/17/18 10:45 04/17/18 10:45 04/17/18 10:45 General appearance: cooperative, no acute distress, obese - Head Head exam: Present: atraumatic, normal inspection, normocephalic - Eye Eye exam: Present: EOMI, normal appearance, PERRL Pupils: Present: normal accommodation - ENT ENT exam: Present: mucous membranes moist - Neck Neck exam: Present: normal inspection - Respiratory Respiratory exam: Present: CTAB. Absent: rales, respiratory distress, rhonchi, wheezes - Cardiovascular Cardiovascular exam: Present: RRR, +S1, +S2 - GI/Abdominal GI/Abdominal exam: Present: normal bowel sounds, soft. Absent: distended, tenderness - Extremities Exam Extremities exam: Absent: joint swelling, pedal edema, tenderness (Left lower leg) Additional comments: Left lower leg wound VAC dressing intact without evidence of leak with 125mmHg continuous suction. No drainage noted in the canister. Overlying pressure dressing C/D/I. - Neurological Exam Neurological exam: Present: alert, oriented X3, no focal deficits - Psychiatric Psychiatric exam: Present: normal affect, normal mood - Skin Skin exam: Present: dry, intact, normal color, warm Consult Discharge Plan - Plan Referrals: Donald Anderson DO [Partnered Physician] - 05/07/18 1:00 pm Elaina Andrade CNP [Primary Care Provider] - 04/21/18 12:30 pm
[2018-04-17] MEDS ORDERED: Saliva Stimulant 100ml BOTTLE PO PRN (11:19)
[2018-04-17] MEDS ORDERED: *HR* FentaNYL (PF) 100 MCG/2 ML VIAL IVP ONE (14:00)
[2018-04-17] MEDS ORDERED: *HR* Midazolam HCl 2 MG/2 ML VIAL IVP ONE (14:00)
--- NOTE | 2018-04-17 14:46 | IR Procedure Note ---
Date of procedure: 04/17/18 Consent Obtained: Verbal consent, Written consent Timeout: Correct patient and procedure verified, Correct site verified, Time out performed, Skin prep completed Local anesthetic: Lidocaine 1% Indications: Pancytopenia Procedure Performed: Bone marrow biopsy Was there an assistant secretary present: No Site/Technique: Fluoro guided bone marrow biopsy Results/Findings: Bone marrow biopsy performed Estimated blood loss (cc): 1 Complications: None; Tolerated procedure well Post Procedure Treatment Plan: Continue inpatient care Specimen: 11 gauge core needle biopsy, 10 cc marrow
--- NOTE | 2018-04-17 15:41 | Oncology Inp Progress Note ---
Date of Encounter: 04/17/18 Time of Encounter: 15:30 (1) Leukopenia Current Visit: Yes Status: Acute Assessment and plan: Acute on admission Peripheral smear obtained-appears benign with no blasts Nutritional stores appear adequate LDH normal No other cell lines affects ANC 0 today Remains afebrile-last recorded fever was 04/13/18 0430- T100.3 Plan: Continue to monitor CBC Neutropenia etiology may be drug induced secondary to ATB vs. infection vs. inflammatory/autoimmune process vs. malignancy (i.e. 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 Hill who agrees with plan of care Qualifiers: Leukopenia type: neutropenia Neutropenia type: unspecified Qualified Code (s): D70.9 - Neutropenia, unspecified (2) Rash and other nonspecific skin eruption Current Visit: Yes Status: Acute Assessment and plan: Etiology unclear, secondary to ATB reaction, autoimmune process, or other Rash in presence of neutropenia may be concerning for underlying bone marrow etiology Appears to be improving, patient also report symptomatic improvement Plan: Appreciated dermatology input, skin punch biopsy sent to [facility]-results pending Oncology: Subj Interval history: Ms. Crespo is resting in her chair, eating dinner tray. She is overall is feeling well with no complaints presently. She denies abdominal pain, constipation, nausea, vomiting, diarrhea, fever or chills. She has just returned from her [facility] and tolerated quite well. - Constitutional Vitals: Vital Signs Temp Pulse Resp BP Pulse Ox 04/17/18 14:40 63 122/74 97 04/17/18 14:35 73 122/75 97 04/17/18 14:30 64 114/62 97 04/17/18 14:25 60 131/71 97 04/17/18 14:20 64 148/90 98 04/17/18 10:45 98.2 F 73 16 105/70 90 04/17/18 06:27 98.1 F 76 16 107/61 04/17/18 05:49 97.6 F 80 15 131/78 92 04/17/18 01:01 97.9 F 71 16 132/88 92 04/16/18 19:10 97.9 F 85 24 134/79 04/16/18 15:59 97.9 F 78 16 133/76 94 Intake and Output 04/16/18 04/17/18 04/17/18 23:59 07:59 15:59 Intake Total 60 / 60 130 / 130 0 / 0 Output Total 0 / 0 1250 / 1250 500 / 500 Balance 60 / 60 -1120 / -1120 -500 / -500 Intake: IV Fluids Merrem 1,000 MG In Water for inj. (sterile) 10 ML @ 120 mls/ hr IVP Q8HR BRET Rx#:[id number] Oral 50 / 50 120 / 120 0 / 0 Output: Urine 0 / 0 1250 / 1250 500 / 500 Other: Meal Lunch Percent of Meal Consumed 0% Stool Size Moderate Stool Color Brown # Bowel Movements 1 Weight 87.4 kg Patient Weight 04/17/18 23:59 Weight 87.4 kg General appearance: cooperative, no acute distress, no febrile - Head Head exam: Present: atraumatic - ENT ENT exam: Present: mucous membranes moist - Respiratory Respiratory exam: Present: CTAB. Absent: respiratory distress - Cardiovascular Cardiovascular exam: Present: RRR, +S1, +S2 - GI/Abdominal GI/Abdominal exam: Present: normal bowel sounds, soft. Absent: guarding, rebound, tenderness - Extremities Exam Extremities exam: Absent: calf tenderness - Neurological Exam Neurological exam: Present: alert, oriented X3, no focal deficits, strengths equal and symetr throughout - Psychiatric Psychiatric exam: Present: normal affect, normal mood - Skin Skin exam: Present: dry, normal color, warm Additional comments: wound vac LLE-chronic venous ulcer Oncology: Obj Data - Labs CBC & Chem 7: 04/18/18 03:32 04/18/18 03:32 - Impressions Impressions Bone Biopsy 04/17/18 00:00 IMPRESSION: Fluoroscopic guided bone marrow biopsy. No immediate complications. D/ / Tyler Delaney MD / Tyler Delaney MD Interpreting Provider: Tyler Delaney MD - ABG Interpretation ABG results: PT/INR, D-dimer PT 13.0 Seconds (9.4-12.1) H 04/10/18 10:09 Consult Discharge Plan - Plan Referrals: Donald Anderson DO [Partnered Physician] - 05/07/18 1:00 pm Elaina Andrade CNP [Primary Care Provider] - 04/21/18 12:30 pm Prescriptions: Rivaroxaban [Xarelto] 1 dose PO AD 30 Days pack Inpatient Charges Provider: Rachel Peng CNP Follow Up: [id number]
--- NOTE | 2018-04-17 17:10 | Internal Med Progress Note ---
<Rayshawn Pérez Mia - Last Filed: 04/17/18 17:08> Hospitalist Progress Note - Encounter Date of Encounter: 04/17/18 Time of Encounter: 09:00 - Subjective Interval History: 66 year old female with hx of venous stasis ulcer, HTN, HLD, who was admitted 8 with facial droop and slurred speech. Her TIA symptoms have since resolved , and neuro recommended daily ASA. Patient is also being treated for venous stasis ulcer, for which she has a wound vac. Cultures growing pseudomonas. CT scan concerning for early osteomyelitis of anterior tibia. Patient has also had a generalized body rash for the past 3 weeks, thought to be due to taking Bactrim as an outpatient. Her abx were switched to cefepime and then meropenem. On 04/13 she spiked a fever and developed a dry cough, CT chest found interstitial lung disease, pulmonology recommend follow up as outpatient. Patient then developed neutropenia, etiology unclear. Currently undergoing rheum /vasculitis workup. Today, patients rash continues to improve. Her IV infiltrated last night and she is having pain in that arm. Dry cough, no SOB. No abdominal pain. - Exam Vitals: Temp Pulse Resp BP Pulse Ox 97.8 F 84 16 110/66 96 04/17/18 15:47 04/17/18 15:47 04/17/18 15:47 04/17/18 15:47 04/17/18 15:47 Exam: Gen: no acute distress, awake, alert HEENT: dry tongue, small bullae on posterior aspect of tongue. Healing lesions on buccal mucosa. moist mucus membranes Heart: RRR, no murmurs Lungs: crackles in bases L>R, no wheezes Abdomen: soft, non-tender Extremities: wound vac and dressing on left LE, trace edema on right LE Vascular: pulses +2 in all extremities Skin: Faint diffuse rash on back, improved from yesterday. rash on legs and arms , improved from yesterday. Neuro: no facial droop, no focal deficits, sensation intact in all extremities - Assessment and Plan (1) Leukopenia Current Visit: Yes Status: Acute Assessment and Plan: WBC remains ~2 today, however ANC is now ZERO. Peripheral smear benign with no blasts. Patient had a temp of 100.3 and developed a cough on 04/13. Patient recently started on meropenem. Etiology of leukopenia is unclear, could be meropenem vs viral vs autoimmune/ rheum vs cancer. Respiratory panel negative. - Oncology consulted - appreciate recommendations - Bone marrow bx today - Consider neupogen after bone marrow bx if necessary (2) Venous ulcer of leg Current Visit: Yes Status: Acute Assessment and Plan: Chronic wound of Left lower extremity, culture positive for Pseudomonas aeruginosa Disontinued cefepime due to rash, now on meropeneum CT showed subtle periosteal reaction, will likely receive Abx for 4-6 weeks per ID. ESR 44, CRP 39. - Continue IV meropenem - Wound vac change today (Tuesdays and ) - Monitor renal function (3) Rash Current Visit: Yes Status: Acute Assessment and Plan: Seems to be mildly improved. May be 2/2 recent use of bactrim or cefepime or autoimmune. Rash with neutropenia may be concerning for underlying bone marrow etiology - Dermatology consulted for punch biopsy to rule out leukemia cutis, Bx sent to [facility] for evaluation - Ordered autoimmune labs per Rheum - Continue topical hydrocortisone and oral prednisone (4) Interstitial lung disease Current Visit: Yes Status: Acute Assessment and Plan: CT showed interstitial lung disease. Patient has a cough, but denies SOB Concern for rheumatologic/vasculitic source with recent use of bactrim, rash, and joint swelling - Ordered AUGUSTINE, BMP, CBC, Cryoglobulin, Histone Ab, lupus anticoagulant, histoplasma galactomannan, fungitell - Rheumatology consulted, ordered CCP, complement 3 + 4, ANCA, and SSA, will follow up outpatient - Continue incentive spirometer - Ordered mycoplasma pneumoniae IgM - Pulmonology signed off - Recommend follow up in 6-8 weeks for PFTs and HRCT, will need repeat CT (5) TIA (transient ischemic attack) Current Visit: Yes Status: Resolved Assessment and Plan: CT normal, MRI showed vertebral artery stenosis Carotid US prelim report showed non-stenotic plaques bilaterally LDL 65. Urine drug screen negative - PT/OT consulted, will remove gonzalez catheter if mobility approved by PT/OT - Continue aspirin 325mg daily - Neurology signed off - Symptoms have resolved, No further intervention needed (6) PETR (acute kidney injury) Current Visit: Yes Status: Resolved (7) Hyponatremia Current Visit: Yes Status: Acute Assessment and Plan: Sodium 133 > 130 today. - Continue to monitor - Discontinued fluids - pt with good intake (8) HTN (hypertension) Current Visit: Yes Status: Acute Assessment and Plan: Normotensive. Continue current meds DVT Prophylaxis: Subcutaneous heparin - Summary of Assessment and Plan Summary of Assessment and Plan: Pending bone biopsy and further oncology work-up for leukopenia. Dispo plan is for HH at discharge when ready - Time Spent with Patient Total time spent is greater than 50% in coordination of care (as documented) at patient's floor/unit and/or counseling patient: Internal Medicine: Result - Labs CBC & Chem 7: 04/17/18 04:39 04/17/18 04:39 Labs: Short CBC 04/17/18 Range/Units 04:39 WBC 2.1 L (4.3-11.1) K/mcL Hgb 11.5 (11.5-15.4) g/dL Hct 32.6 L (35.3-44.9) % Plt Count 293 (140-400) K/mcL Neutrophils # 0.0 L (1.6-8.9) K/mcL BMP 04/17/18 04:39 Sodium 131 L Potassium 3.8 Chloride 104 Carbon Dioxide 20 L BUN 17 Creatinine 0.40 L Glucose 92 Calcium 9.4 - ABG Interpretation ABG results: PT/INR, D-dimer PT 13.0 Seconds (9.4-12.1) H 04/10/18 10:09 - Impressions Impressions Bone Biopsy 04/17/18 00:00 IMPRESSION: Fluoroscopic guided bone marrow biopsy. No immediate complications. D/ / Tyler Delaney MD / Tyler Delaney MD Interpreting Provider: Tyler Delaney MD Consult Discharge Plan - Plan Referrals: Donald Anderson DO [Partnered Physician] - 05/07/18 1:00 pm Elaina Andrade, [employer] [Primary Care Provider] - 04/21/18 12:30 pm <Kaila Rodrigez - Last Filed: 04/17/18 17:35> Hospitalist Progress Note - Encounter Date of Encounter: 04/17/18 - Exam Vitals: Temp Pulse Resp BP Pulse Ox 97.8 F 84 16 110/66 96 04/17/18 15:47 04/17/18 15:47 04/17/18 15:47 04/17/18 15:47 04/17/18 15:47 - Assessment and Plan (1) Venous ulcer of leg Current Visit: Yes Status: Acute (2) Hyponatremia Current Visit: Yes Status: Acute (3) TIA (transient ischemic attack) Current Visit: Yes Status: Resolved (4) PETR (acute kidney injury) Current Visit: Yes Status: Resolved (5) Rash Current Visit: Yes Status: Acute (6) Hypokalemia Current Visit: Yes Status: Resolved (7) Leukopenia Current Visit: Yes Status: Acute (8) Interstitial lung disease Current Visit: Yes Status: Acute - Time Spent with Patient Total time spent is greater than 50% in coordination of care (as documented) at patient's floor/unit and/or counseling patient: Internal Medicine: Result - Labs CBC & Chem 7: 04/17/18 04:39 04/17/18 04:39 Labs: Short CBC 04/17/18 Range/Units 04:39 WBC 2.1 L (4.3-11.1) K/mcL Hgb 11.5 (11.5-15.4) g/dL Hct 32.6 L (35.3-44.9) % Plt Count 293 (140-400) K/mcL Neutrophils # 0.0 L (1.6-8.9) K/mcL BMP 04/17/18 04:39 Sodium 131 L Potassium 3.8 Chloride 104 Carbon Dioxide 20 L BUN 17 Creatinine 0.40 L Glucose 92 Calcium 9.4 - ABG Interpretation ABG results: PT/INR, D-dimer PT 13.0 Seconds (9.4-12.1) H 04/10/18 10:09 - Impressions Impressions Bone Biopsy 04/17/18 00:00 IMPRESSION: Fluoroscopic guided bone marrow biopsy. No immediate complications. D/ / Tyler Delaney MD / Tyler Delaney MD Interpreting Provider: Tyler Delaney MD - Attending Attestation I examined this patient and my medical decision-making was reviewed with the Resident Physician Dr. Pérez. I agree with the documented findings, disposition and treatment plan as described except to the extent set forth below. Ms. Crespo is 68 year old female with PMHx of venous stasis ulcer, HTN, and HLD admitted to [facility] for TIA. She does have chronic LLE venous stasis ulcer for which she had wound vac and on chronic abx therapy as an out pt with Bactrim and Cefepime. Pt did develop diffuse papular rash later. Now she is off the Bactrim and Cefepime, and ID placed her on Meropenem. Her rash seems to be improving now. She does have neutropenia , which might be due to sepsis and Abx induced. No events over night. No cough / SOB Gen: A, A, O x 3 Skin : improving maculo papular rash Chest: Diminished BS b/l no wheezing, no crackles Heart: S1S2+ RRR a/p 1. Sepsis with Pneumonia and Left lower ext venous stasis ulcer 2. Pneumonia - bacterial cont IV abx Meropenem 3. Acute neutropenia still worsening ANC cont neutropenic precautions Had bone marrow biopsy today started on Neupogen Inj 4. Diffuse maculo papular rash mostly Abx induced improving cont steroids skin biopsy - P <Rayshawn Pérez - Last Filed: 04/17/18 17:08> (1) Leukopenia Qualifiers: Leukopenia type: neutropenia Neutropenia type: unspecified Qualified Code(s) : D70.9 - Neutropenia, unspecified (2) Venous ulcer of leg Qualifiers: Laterality: left Qualified Code(s): I83.029 - Varicose veins of left lower extremity with ulcer of unspecified site; L97.929 - Non-pressure chronic ulcer of unspecified part of left lower leg with unspecified severity; L97.929 - Non- pressure chronic ulcer of unspecified part of left lower leg with unspecified severity; L97.929 - Non-pressure chronic ulcer of unspecified part of left lower leg with unspecified severity; L97.929 - Non-pressure chronic ulcer of unspecified part of left lower leg with unspecified severity (8) HTN (hypertension) Qualifiers: Hypertension type: essential hypertension Qualified Code(s): I10 - Essential (primary) hypertension <Kaila Rodrigez - Last Filed: 04/17/18 17:35> (1) Venous ulcer of leg Qualifiers: Laterality: left Qualified Code(s): I83.029 - Varicose veins of left lower extremity with ulcer of unspecified site; L97.929 - Non-pressure chronic ulcer of unspecified part of left lower leg with unspecified severity; L97.929 - Non- pressure chronic ulcer of unspecified part of left lower leg with unspecified severity; L97.929 - Non-pressure chronic ulcer of unspecified part of left lower leg with unspecified severity; L97.929 - Non-pressure chronic ulcer of unspecified part of left lower leg with unspecified severity (7) Leukopenia Qualifiers: Leukopenia type: neutropenia Neutropenia type: unspecified Qualified Code(s) : D70.9 - Neutropenia, unspecified
[2018-04-17] MEDS: *HR* Enoxaparin 100 MG/ML SYRINGE SQ SCH (18:24)
[2018-04-18] MEDS: Meropenem 1,000 MG in Water for inj. (sterile) 20 ML 10 ML IVP SCH ×3 (00:38→17:24)
[2018-04-18 04:49] LABS: Basophils % 0.3 %; Hematocrit 32.8 % (35.3-44.9); Hemoglobin 11.3 g/dL (11.5-15.4); Immature Granulocytes % 1.3 % (0-4); Lymphocytes # 1.9 K/mcL (0.6-4.6); Lymphocytes % 61.7 %; Mean Corpuscular HGB Conc 34.5 g/dL (31.6-35.5); Mean Corpuscular Volume 95.9 fL (83.0-100.0); Mean Platelet Volume 11.3 fL (9.4-12.4); Monocytes # 0.8 K/mcL (0.0-1.3); Neutrophils # 0.3 K/mcL (1.6-8.9); Platelet Count 265 K/mcL (140-400); Red Blood Count 3.42 M/mcL (3.82-4.97); Red Cell Distribution Width 13.5 % (11.5-14.5); Segmented Neutrophils % 9.7 %
[2018-04-18 04:58] LABS: BUN/Creatinine Ratio 37 (6-26); Blood Urea Nitrogen 19 mg/dL (8-23); Calcium 9.3 mg/dL (8.6-10.3); Carbon Dioxide 24 mEq/L (23-29); Chloride 105 mEq/L (98-107); Glucose 102 mg/dL (70-105); Osmolality,Calculated 282 (280-300); Potassium 3.7 mEq/L (3.5-5.1); Sodium 135 mEq/L (136-145); eGFR For Non-African Americans > 60 (> 60)
[2018-04-18] MEDS: *HR* Enoxaparin 100 MG/ML SYRINGE SQ SCH (05:32)
[2018-04-18 05:51] LABS: Platelet Estimate Normal (Normal); Polychromasia 1+ (Not Present); Reactive Lymphocytes Present (Not Present)
[2018-04-18 07:39] LABS: Complement Component 3 127 mg/dL (88-201); Complement Component 4 24 mg/dL (10-40); SSA 52 (Anti-RO) Antibody 10 AU/mL (0-40); SSA 60 (Anti-RO) Antibody 3 AU/mL (0-40)
[2018-04-18 07:43] LABS: Mycoplasma pneumoniae IgG 0.19 U/L (<=0.09)
[2018-04-18] MEDS: Loratadine 10 MG TABLET PO SCH (09:11)
[2018-04-18] MEDS: Aspirin 325 MG TABLET PO SCH (09:11)
[2018-04-18] MEDS: predniSONE 20 MG TABLET PO SCH (09:11)
[2018-04-18] MEDS: Famotidine 20 MG TABLET PO SCH ×2 (09:11→22:38)
--- NOTE | 2018-04-18 14:08 | Infectious Disease Progress No ---
Date of Encounter: 04/18/18 Time of Encounter: 14:05 - Assessment and Plan (1) Fever Current Visit: Yes Status: Resolved Resolved. Etiology unclear: infectious vs. inflammatory vs. rheumatologic vs. other. Clinically, the patient appears to have improved. Continue to monitor closely. Qualifiers: Fever type: unspecified Qualified Code(s): R50.9 - Fever, unspecified (2) Leukopenia Current Visit: Yes Status: Acute Etiology unclear: sepsis vs. medication vs. other. WBC and ANC improved. ANC 291 today. Hem/Onc consulted. Appreciate recommendations. Status post BBX 04/17/18. Pathology pending. Qualifiers: Leukopenia type: neutropenia Neutropenia type: unspecified Qualified Code (s): D70.9 - Neutropenia, unspecified (3) Venous ulcer of leg Current Visit: Yes Status: Acute Location: LLE. Etiology: Venous stasis ulcer. Previous wound culture positive for PSEA. Started on Cefepime 03/19/18 after the patient developed a rash while on Bactrim. CT of the LLE showed a subtle periosteal reaction to the tibia adjacent to the soft tissue ulceration. ESR 44, CRP 74. Dressing changes per the wound care clinic recommendations. Continue Meropenem 1 gram IV Q8H. Duration of treatment depends on the clinical picture, but likely 4-6 weeks. Monitor renal function and dose-adjust antibiotics. Qualifiers: Laterality: left Qualified Code(s): I83.029 - Varicose veins of left lower extremity with ulcer of unspecified site; L97.929 - Non-pressure chronic ulcer of unspecified part of left lower leg with unspecified severity; L97.929 - Non- pressure chronic ulcer of unspecified part of left lower leg with unspecified severity; L97.929 - Non-pressure chronic ulcer of unspecified part of left lower leg with unspecified severity; L97.929 - Non-pressure chronic ulcer of unspecified part of left lower leg with unspecified severity (4) PETR (acute kidney injury) Current Visit: Yes Status: Resolved Resolved. (5) Allergy to antibiotic Current Visit: Yes Status: Acute Patient developed rash two weeks ago, presumptively to the Bactrim she was on previously. Patient reports that the rash is improved. Continue supportive care. Dermatology consulted and punch biopsy performed. Await results. (6) Facial droop Current Visit: Yes Status: Resolved Likely secondary to TIA. Resolved (7) Hyponatremia Current Visit: Yes Status: Acute Management per the primary team. (8) Rash Current Visit: Yes Status: Acute Etiology unclear: antibiotic reaction vs. other. Bactrim stopped last Saturday and Cefepime stopped Saturday. Rash has started to improve. Currently on Claritin and Pepcid. (9) TIA (transient ischemic attack) Current Visit: Yes Status: Resolved (10) HTN (hypertension) Current Visit: Yes Status: Acute Qualifiers: Hypertension type: essential hypertension Qualified Code(s): I10 - Essential (primary) hypertension (11) Interstitial lung disease Current Visit: Yes Status: Acute CT chest showed findings consistent with interstitial lung disease and fibrosis. Etiology unclear. Pulmonary consult noted and appreciated. Fungitell and Histo antigens are negative. Rheumatology consulted and following. Appreciate recommendations. - Subjective Interval history: Patient seen and examined. No acute events noted overnight. Patient states that overall she feels okay today. Denies fevers, chills, or rigors. Denies chest pain or shortness of breath. States cough is better. Denies nausea, vomiting, or diarrhea. States her stools have been a little loose. Reports relatively poor appetite. Denies abdominal pain or urinary complaints. Complains of pain at the site of the ulcer. Reports her skin rash is getting better. She denies oral thrush. Reports RUE pain. Was diagnosed with SVT and DVT to the RUE. Infect Dis PN-Objective Data - Labs CBC & Chem 7: 04/18/18 03:32 04/18/18 03:32 Labs: Laboratory Results - last 24 hr 04/15/18 04/16/18 04/16/18 11:57 07:05 12:02 WBC RBC Hgb Hct MCV MCH MCHC RDW Plt Count MPV Immature Gran % Seg Neutrophils % Lymphocytes % Monocytes % Eosinophils % Basophils % Neutrophils # Lymphocytes # Monocytes # Eosinophils # Basophils # Nucleated RBCs/100 WBC Reactive Lymphocytes Platelet Estimate Polychromasia Sodium Potassium Chloride Carbon Dioxide BUN Creatinine Est GFR ( Amer) Est GFR (Non-Af Amer) BUN/Creatinine Ratio Glucose Calculated Osmolality Calcium Cycl Citrul Peptide IgG 4 SS-A/Ro 52 kDa Ab 10 SS-A Ro 60 kDa Ab 3 Complement C3 Complement C4 U Histopl Galactoman Ag NOT DETECTED U Histopl Galact Ant Int NOT DETECTED Mycoplasma pneumon IgG 0.19 H Mycoplasma pneumon IgM 0.46 04/16/18 04/18/18 04/18/18 12:02 03:32 03:32 WBC 3.0 L RBC 3.42 L Hgb 11.3 L Hct 32.8 L MCV 95.9 MCH 33.0 MCHC 34.5 RDW 13.5 Plt Count 265 MPV 11.3 Immature Gran % 1.3 Seg Neutrophils % 9.7 Lymphocytes % 61.7 Monocytes % 27.0 Eosinophils % 0.0 Basophils % 0.3 Neutrophils # 0.3 L Lymphocytes # 1.9 Monocytes # 0.8 Eosinophils # 0.0 Basophils # 0.0 Nucleated RBCs/100 WBC 1.0 H Reactive Lymphocytes Present A Platelet Estimate Normal Polychromasia 1+ A Sodium 135 L Potassium 3.7 Chloride 105 Carbon Dioxide 24 BUN 19 Creatinine 0.52 L Est GFR ( Amer) > 60 Est GFR (Non-Af Amer) > 60 BUN/Creatinine Ratio 37 H Glucose 102 Calculated Osmolality 282 Calcium 9.3 Cycl Citrul Peptide IgG SS-A/Ro 52 kDa Ab SS-A Ro 60 kDa Ab Complement C3 127 Complement C4 24 U Histopl Galactoman Ag U Histopl Galact Ant Int Mycoplasma pneumon IgG Mycoplasma pneumon IgM Cultures: Cultures 04/11/18 17:20 Blood Culture - Final Peripheral Venipuncture No growth. Final report. 04/11/18 17:20 Blood Culture - Final Peripheral Venipuncture No growth. Final report. Serology 04/16/18 04/16/18 04/15/18 Range/Units 14:45 07:05 11:57 Urine Creatinine 49 mg/dL Protein/Creatinin Ratio 1.10 H (0.00-0.20) mg/mg Urine Total Protein 54 H (1-14) mg/dL Chlamy pneumoniae PCR (Not Detect) Adenovirus (PCR) (Not Detect) B. pertussis DNA (PCR) (Not Detect) B.parapertussis DNA PCR (Not Detect) Coronavirus OC43 (PCR) (Not Detect) Coronavirus HKU1 (PCR) (Not Detect) Coronavirus 229E (PCR) (Not Detect) Coronavirus NL63 (PCR) (Not Detect) U Histopl Galactoman Ag NOT DETECTED ng/mL U Histopl Galact Ant Int NOT DETECTED (Not Detected) Human Metapneumovir PCR (Not Detect) Influenza A (H1) PCR (Not Detect) Influ A (H1N1/09) PCR (Not Detect) Influenza A (H3) PCR (Not Detect) Influenza A Untype (PCR) (Not Detect) Influenza Type B (PCR) (Not Detect) Mycoplasma pneumon IgG 0.19 H (<=0.09) U/L Mycoplasma pneumon IgM 0.46 (<=0.76) U/L M.pneumoniae DNA (PCR) (Not Detect) Parainfluenza 1 (PCR) (Not Detect) Parainfluenza 2 (PCR) (Not Detect) Parainfluenza 3 (PCR) (Not Detect) Parainfluenza 4 (PCR) (Not Detect) RSV (PCR) (Not Detect) Entero/Rhino (PCR) (Not Detect) Beta-(1,3)-D-Glucan pg/mL B-(1,3)-D-Glucan Intrp (Negative) 04/15/18 04/14/18 Range/Units 11:54 11:42 Urine Creatinine mg/dL Protein/Creatinin Ratio (0.00-0.20) mg/mg Urine Total Protein (1-14) mg/dL Chlamy pneumoniae PCR Not Detected (Not Detect) Adenovirus (PCR) Not Detected (Not Detect) B. pertussis DNA (PCR) Not Detected (Not Detect) B.parapertussis DNA PCR Not Detected (Not Detect) Coronavirus OC43 (PCR) Not Detected (Not Detect) Coronavirus HKU1 (PCR) Not Detected (Not Detect) Coronavirus 229E (PCR) Not Detected (Not Detect) Coronavirus NL63 (PCR) Not Detected (Not Detect) U Histopl Galactoman Ag ng/mL U Histopl Galact Ant Int (Not Detected) Human Metapneumovir PCR Not Detected (Not Detect) Influenza A (H1) PCR Not Detected (Not Detect) Influ A (H1N1/09) PCR Not Detected (Not Detect) Influenza A (H3) PCR Not Detected (Not Detect) Influenza A Untype (PCR) Not Detected (Not Detect) Influenza Type B (PCR) Not Detected (Not Detect) Mycoplasma pneumon IgG (<=0.09) U/L Mycoplasma pneumon IgM (<=0.76) U/L M.pneumoniae DNA (PCR) Not Detected (Not Detect) Parainfluenza 1 (PCR) Not Detected (Not Detect) Parainfluenza 2 (PCR) Not Detected (Not Detect) Parainfluenza 3 (PCR) Not Detected (Not Detect) Parainfluenza 4 (PCR) Not Detected (Not Detect) RSV (PCR) Not Detected (Not Detect) Entero/Rhino (PCR) Not Detected (Not Detect) Beta-(1,3)-D-Glucan 35 pg/mL B-(1,3)-D-Glucan Intrp NEGATIVE (Negative) - Impressions Impressions Bone Biopsy 04/17/18 00:00 IMPRESSION: Fluoroscopic guided bone marrow biopsy. No immediate complications. D/ / Tyler Delaney MD / Tyler Delaney MD Interpreting Provider: Tyler Delaney MD Exam - Constitutional Vitals: Temp Pulse Resp BP Pulse Ox 97.9 F 68 15 118/71 96 04/18/18 11:53 04/18/18 11:53 04/18/18 11:53 04/18/18 11:53 04/18/18 11:53 General appearance: cooperative, no acute distress, obese - Head Head exam: Present: atraumatic, normal inspection, normocephalic - Eye Eye exam: Present: EOMI, normal appearance, PERRL Pupils: Present: normal accommodation - ENT ENT exam: Present: mucous membranes moist - Neck Neck exam: Present: normal inspection - Respiratory Respiratory exam: Present: CTAB. Absent: rales, respiratory distress, rhonchi, wheezes - Cardiovascular Cardiovascular exam: Present: RRR, +S1, +S2 - GI/Abdominal GI/Abdominal exam: Present: normal bowel sounds, soft. Absent: distended, tenderness - Extremities Exam Extremities exam: Absent: joint swelling, pedal edema, tenderness Additional comments: Left leg compression dressing C/D/I with wound VAC noted to the LLE with no drainage in the canister. No leak noted. 125mm Hg continuous suction noted. - Neurological Exam Neurological exam: Present: alert, oriented X3, no focal deficits - Psychiatric Psychiatric exam: Present: normal affect, normal mood - Skin Skin exam: Present: dry, intact, normal color, warm Consult Discharge Plan - Plan Referrals: Donald Anderson DO [Partnered Physician] - 05/07/18 1:00 pm Elaina Andrade CNP [Primary Care Provider] - 04/21/18 12:30 pm Prescriptions: Rivaroxaban [Xarelto] 1 dose PO AD 30 Days pack
--- NOTE | 2018-04-18 16:42 | Internal Med Progress Note ---
<Cain Fuchs - Last Filed: 04/18/18 17:15> Hospitalist Progress Note - Encounter Date of Encounter: 04/18/18 Time of Encounter: 09:45 - Subjective Interval History: 68 year old female with PMHx of venous stasis ulcer, HTN, and HLD admitted to [facility] for TIA. She states her TIA symptoms have resolved. She is also being treated for a venous stasis ulcer, hyponatremia, rash, and leukopenia. Yesterday her IV infiltrated on her right arm and she was found to have a right UE DVT and she is on xarelto. Patient had the neupogen injection following a bone marrow biopsy yesterday. She is doing well today with no complaints. She states her rash is continuing to improve. She denies TREVIÑO, rhinorrhea, blurred vision, fevers/chills, SOB, CP, abdominal pain, n/v/d, weakness, numbness. - Exam Vitals: Temp Pulse Resp BP Pulse Ox 97.8 F 87 16 118/66 93 04/18/18 16:07 04/18/18 16:07 04/18/18 16:07 04/18/18 16:07 04/18/18 16:07 Exam: Gen: no acute distress, awake, alert HEENT: dry tongue, small bullae on posterior aspect of tongue. Healing lesions on buccal mucosa. moist mucus membranes Heart: RRR, no murmurs Lungs: crackles in bases L>R, no wheezes Abdomen: soft, non-tender Extremities: wound vac and dressing on left LE, trace edema on right LE Vascular: pulses +2 in all extremities Skin: Faint diffuse rash on back, improved from yesterday. rash on legs and arms , improved from yesterday. Neuro: no facial droop, no focal deficits, sensation intact in all extremities - Assessment and Plan (1) Venous ulcer of leg Current Visit: Yes Status: Acute Assessment and Plan: Left lower extremity ID on consult Wound culture positive for Pseudomonas aeruginosa Disontinued cefepime due to rash Continue IV meropenem CT showed subtle periosteal reaction, will likely receive Abx for 4-6 weeks ESR 44, CRP 39 Wound vac changes, per wound care Monitor renal function (2) Leukopenia Current Visit: Yes Status: Acute Assessment and Plan: Patient received neupogen injection following bone marrow biopsy WBC increased 2.5 > 3 today ANC increased 0 > 300 today Patient recently started on meropenem Could be meropenem vs viral vs sepsis Respiratory viral panel negative Oncology on consult, will follow recommendations Peripheral blood smear - benign with no blasts Continue to monitor CBC (3) Rash Current Visit: Yes Status: Acute Assessment and Plan: Improving May be 2/2 recent use of bactrim or cefepime, autoimmune Rash with neutropenia may be concerning for underlying bone marrow etiology Dermatology consulted for punch biopsy to rule out leukemia cutis - Bx sent to [facility] for evaluation Ordered autoimmune labs, will follow up with rheumatology outpatient Continue topical hydrocortisone and oral prednisone (4) Hyponatremia Current Visit: Yes Status: Acute Assessment and Plan: Sodium 135 today Continue to monitor Discontinued fluids (5) TIA (transient ischemic attack) Current Visit: Yes Status: Resolved Assessment and Plan: CT normal MRI showed vertebral artery stenosis Echo pending Carotid US prelim report showed non-stenotic plaques bilaterally LDL 65 Urine drug screen negative PT/OT consulted, will remove gonzalez catheter if mobility approved by PT/OT Continue aspirin 325mg daily Neurology signed off Symptoms have resolved No further intervention needed (6) PETR (acute kidney injury) Current Visit: Yes Status: Resolved Assessment and Plan: Resolved (7) Hypokalemia Current Visit: Yes Status: Resolved Assessment and Plan: replace as needed. (8) Interstitial lung disease Current Visit: Yes Status: Acute Assessment and Plan: CT showed interstitial lung disease Patient has a cough, but denies SOB Concern for rheumatologic/vasculitic source with recent use of bactrim, rash, and joint swelling Ordered AUGUSTINE, BMP, CBC, Cryoglobulin, Histone Ab, lupus anticoagulant, histoplasma galactomannan, fungitell Rheumatology consulted, ordered CCP, complement 3 + 4, ANCA, and SSA, will follow up outpatient Continue incentive spirometer Mycoplasma pneumoniae IgM level was not clinically significant, but IgG was positive Pulmonology signed off Recommend follow up in 6-8 weeks for PFTs and HRCT, will need repeat CT DVT Prophylaxis: Xarelto - Time Spent with Patient Total time spent is greater than 50% in coordination of care (as documented) at patient's floor/unit and/or counseling patient: less than 15 minutes Plan of Care Discussed with: patient Internal Medicine: Result - Labs CBC & Chem 7: 04/18/18 03:32 04/18/18 03:32 Labs: Short CBC 04/18/18 Range/Units 03:32 WBC 3.0 L (4.3-11.1) K/mcL Hgb 11.3 L (11.5-15.4) g/dL Hct 32.8 L (35.3-44.9) % Plt Count 265 (140-400) K/mcL Neutrophils # 0.3 L (1.6-8.9) K/mcL BMP 04/18/18 03:32 Sodium 135 L Potassium 3.7 Chloride 105 Carbon Dioxide 24 BUN 19 Creatinine 0.52 L Glucose 102 Calcium 9.3 - ABG Interpretation ABG results: PT/INR, D-dimer PT 13.0 Seconds (9.4-12.1) H 04/10/18 10:09 Consult Discharge Plan - Plan Referrals: Donald Anderson DO [Partnered Physician] - 05/07/18 1:00 pm Elaina Andrade CNP [Primary Care Provider] - 04/21/18 12:30 pm Prescriptions: Rivaroxaban [Xarelto] 1 dose PO AD 30 Days pack <Kaila Rodrigez - Last Filed: 04/18/18 17:25> Hospitalist Progress Note - Encounter Date of Encounter: 04/18/18 - Exam Vitals: Temp Pulse Resp BP Pulse Ox 97.8 F 87 16 118/66 93 04/18/18 16:07 04/18/18 16:07 04/18/18 16:07 04/18/18 16:07 04/18/18 16:07 - Assessment and Plan (1) Venous ulcer of leg Current Visit: Yes Status: Acute (2) Hyponatremia Current Visit: Yes Status: Acute (3) TIA (transient ischemic attack) Current Visit: Yes Status: Resolved (4) PETR (acute kidney injury) Current Visit: Yes Status: Resolved (5) Rash Current Visit: Yes Status: Acute (6) Hypokalemia Current Visit: Yes Status: Resolved (7) Leukopenia Current Visit: Yes Status: Acute (8) Interstitial lung disease Current Visit: Yes Status: Acute - Time Spent with Patient Total time spent is greater than 50% in coordination of care (as documented) at patient's floor/unit and/or counseling patient: Internal Medicine: Result - Labs CBC & Chem 7: 04/18/18 03:32 04/18/18 03:32 Labs: Short CBC 04/18/18 Range/Units 03:32 WBC 3.0 L (4.3-11.1) K/mcL Hgb 11.3 L (11.5-15.4) g/dL Hct 32.8 L (35.3-44.9) % Plt Count 265 (140-400) K/mcL Neutrophils # 0.3 L (1.6-8.9) K/mcL BMP 04/18/18 03:32 Sodium 135 L Potassium 3.7 Chloride 105 Carbon Dioxide 24 BUN 19 Creatinine 0.52 L Glucose 102 Calcium 9.3 - ABG Interpretation ABG results: PT/INR, D-dimer PT 13.0 Seconds (9.4-12.1) H 04/10/18 10:09 - Attending Attestation I examined this patient and my medical decision-making was reviewed with the Resident Physician Dr. Fuchs. I agree with the documented findings, disposition and treatment plan as described except to the extent set forth below. Ms. Crespo is 68 year old female with PMHx of venous stasis ulcer, HTN, and HLD admitted to [facility] for TIA. She does have chronic LLE venous stasis ulcer for which she had wound vac and on chronic abx therapy as an out pt with Bactrim and Cefepime. Pt did develop diffuse papular rash later. Now she is off the Bactrim and Cefepime, and ID placed her on Meropenem. Her rash seems to be improving now. She does have neutropenia , which might be due to sepsis and Abx induced. No events over night. No cough / SOB Gen: A, A, O x 3 Skin : improving maculo papular rash Chest: Diminished BS b/l no wheezing, no crackles Heart: S1S2+ RRR a/p 1. Sepsis with Pneumonia and Left lower ext venous stasis ulcer 2. Pneumonia - bacterial cont IV abx Meropenem 3. Acute neutropenia Improving ANC cont neutropenic precautions bone marrow biopsy path report - P Cont Neupogen Inj 4. Diffuse maculo papular rash mostly Abx induced improving cont steroids skin biopsy - P 5. Rt UE DVT on Lovenox.. will switch to Xarelto <Cain Fuchs - Last Filed: 04/18/18 17:15> (1) Venous ulcer of leg Qualifiers: Laterality: left Qualified Code(s): I83.029 - Varicose veins of left lower extremity with ulcer of unspecified site; L97.929 - Non-pressure chronic ulcer of unspecified part of left lower leg with unspecified severity; L97.929 - Non- pressure chronic ulcer of unspecified part of left lower leg with unspecified severity; L97.929 - Non-pressure chronic ulcer of unspecified part of left lower leg with unspecified severity; L97.929 - Non-pressure chronic ulcer of unspecified part of left lower leg with unspecified severity (2) Leukopenia Qualifiers: Leukopenia type: neutropenia Neutropenia type: unspecified Qualified Code(s) : D70.9 - Neutropenia, unspecified <Kaila Rodrigez - Last Filed: 04/18/18 17:25> (1) Venous ulcer of leg Qualifiers: Laterality: left Qualified Code(s): I83.029 - Varicose veins of left lower extremity with ulcer of unspecified site; L97.929 - Non-pressure chronic ulcer of unspecified part of left lower leg with unspecified severity; L97.929 - Non- pressure chronic ulcer of unspecified part of left lower leg with unspecified severity; L97.929 - Non-pressure chronic ulcer of unspecified part of left lower leg with unspecified severity; L97.929 - Non-pressure chronic ulcer of unspecified part of left lower leg with unspecified severity (7) Leukopenia Qualifiers: Leukopenia type: neutropenia Neutropenia type: unspecified Qualified Code(s) : D70.9 - Neutropenia, unspecified
--- NOTE | 2018-04-18 17:16 | Oncology Inp Progress Note ---
<Rachel Peng L - Last Filed: 04/18/18 17:25> Date of Encounter: 04/18/18 Time of Encounter: 17:14 (1) Leukopenia Current Visit: Yes Status: Acute Assessment and plan: Acute on admission Peripheral smear obtained-appears benign with no blasts Nutritional stores appear adequate LDH normal No other cell lines affects ANC improving today to 300 Remains afebrile-last recorded fever was 04/13/18 0430- T100.3 Plan: Continue to monitor CBC Neutropenia etiology may be drug induced secondary to ATB vs. infection vs. inflammatory/autoimmune process vs. malignancy (i.e. 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 Fay's attestation below for additional details. Qualifiers: Leukopenia type: neutropenia Neutropenia type: unspecified Qualified Code (s): D70.9 - Neutropenia, unspecified (2) Rash and other nonspecific skin eruption Current Visit: Yes Status: Acute Assessment and plan: Etiology unclear, secondary to ATB reaction, autoimmune process, or other Rash in presence of neutropenia may be concerning for underlying bone marrow etiology Appears to be improving, patient also report symptomatic improvement Plan: Appreciated dermatology input, skin punch biopsy sent to [facility]-results pending Clinically improving (3) Deep venous thrombosis of right upper extremity Current Visit: Yes Status: Acute Assessment and plan: Venous doppler reveals: Right Subclavian, axillary, and brachial vein acute thrombosis. Upper extremity abnormal superficial exam: Right upper arm basilic vein acute thrombosis Left upper extremity: normal contralateral exam. She had an infiltrated midline in this extremity which has since been removed Initially started on Lovenox-now transitioned to Xarelto. AC length of treatment likely a minimum of 3 months dependant upon response Please refer to Dr. Fay's attestation below for additional details. Qualifiers: Qualified Code(s): I82.621 - Acute embolism and thrombosis of deep veins of right upper extremity Oncology: Subj Interval history: Ms. Crespo is feeling well overall, she denies pain, nausea, vomiting, cough, SOB , fevers or chills. She is eating dinner. She continues to experience pain to her venous ulcer. She is conversant, afebrile and non toxic appearing - Constitutional Vitals: Vital Signs Temp Pulse Resp BP Pulse Ox 04/18/18 16:07 97.8 F 87 16 118/66 93 04/18/18 11:53 97.9 F 68 15 118/71 96 04/18/18 07:01 97.8 F 73 16 117/71 96 04/18/18 05:00 97.8 F 75 16 117/71 90 04/17/18 20:28 97.8 F 74 17 108/68 93 Intake and Output 04/18/18 04/18/18 04/18/18 07:59 15:59 23:59 Intake Total 190 / 190 720 / 720 Output Total 500 / 500 300 / 300 Balance 190 / 190 220 / 220 -300 / -300 Intake: IV Fluids Merrem 1,000 MG In Water for inj. (sterile) 10 ML @ 120 mls/ hr IVP Q8HR [facility] Rx#:[id number] Oral 180 / 180 720 / 720 Output: Urine 500 / 500 300 / 300 Other: Meal Lunch Percent of Meal Consumed 100% Weight 94.2 kg Patient Weight 04/18/18 23:59 Weight 94.2 kg General appearance: cooperative, no acute distress, no febrile - Head Head exam: Present: atraumatic - ENT ENT exam: Present: mucous membranes moist - Respiratory Respiratory exam: Present: CTAB. Absent: respiratory distress - Cardiovascular Cardiovascular exam: Present: RRR, +S1, +S2 - GI/Abdominal GI/Abdominal exam: Present: normal bowel sounds, soft. Absent: guarding, rebound, tenderness - Extremities Exam Extremities exam: Present: normal inspection. Absent: calf tenderness - Neurological Exam Neurological exam: Present: alert, oriented X3, no focal deficits, strengths equal and symetr throughout - Psychiatric Psychiatric exam: Present: normal affect, normal mood - Skin Skin exam: Present: dry, normal color, warm Additional comments: Pressure dressing with wound vac to LLE Oncology: Obj Data - Labs CBC & Chem 7: 04/18/18 03:32 04/18/18 03:32 - ABG Interpretation ABG results: PT/INR, D-dimer PT 13.0 Seconds (9.4-12.1) H 04/10/18 10:09 Consult Discharge Plan - Plan Referrals: Donald Anderson DO [Partnered Physician] - 05/07/18 1:00 pm Elaina Andrade CNP [Primary Care Provider] - 04/21/18 12:30 pm Prescriptions: Rivaroxaban [Xarelto] 1 dose PO AD 30 Days pack Inpatient Charges Provider: Dr. Robert Galarza <Catracho Galarza - Last Filed: 04/19/18 11:28> Date of Encounter: 04/19/18 Oncology: Subj Interval history: I examined this patient and my medical decision-making was reviewed with the Advanced Practice Nurse, Rachel Peng. I agree with the documented findings, disposition and treatment plan as described except to the extent set forth below. - Constitutional Vitals: Vital Signs Temp Pulse Resp BP Pulse Ox 04/19/18 08:10 98.1 F 77 17 120/70 90 04/19/18 05:38 97.6 F 62 15 113/81 90 04/18/18 22:39 122/78 04/18/18 21:00 97.6 F 80 15 99/75 93 04/18/18 16:07 97.8 F 87 16 118/66 93 04/18/18 11:53 97.9 F 68 15 118/71 96 Intake and Output 04/18/18 04/19/18 04/19/18 23:59 07:59 15:59 Intake Total 970 / 970 690 / 690 370 / 370 Output Total 800 / 800 350 / 350 Balance 170 / 170 340 / 340 370 / 370 Intake: IV Fluids Merrem 1,000 MG In Water for inj. (sterile) 10 ML @ 120 mls/ hr IVP Q8HR [facility] Rx#:[id number] Oral 960 / 960 680 / 680 360 / 360 Output: Urine 800 / 800 350 / 350 Other: Meal Dinner Breakfast Percent of Meal Consumed 100% 100% # Voids 1 Weight 94.2 kg Patient Weight 08/25/18 23:59 Weight 94.2 kg Oncology: Obj Data - Labs CBC & Chem 7: 04/19/18 04:11 04/19/18 04:11 Labs: Laboratory Results - last 24 hr 04/19/18 04/19/18 04:11 04:11 WBC 6.9 D RBC 3.32 L Hgb 10.8 L Hct 31.4 L MCV 94.6 MCH 32.5 MCHC 34.4 RDW 13.8 Plt Count 280 MPV 10.8 Seg Neutrophils % 26.0 Band Neutrophils % 2.0 Lymphocytes % 52.0 Monocytes % 20.0 Neutrophils # 1.9 Lymphocytes # 3.6 Monocytes # 1.4 H Nucleated RBCs/100 WBC 1.0 H Reactive Lymphocytes Present A Platelet Estimate Normal Sodium 135 L Potassium 3.8 Chloride 105 Carbon Dioxide 23 BUN 16 Creatinine 0.46 L Est GFR ( Amer) > 60 Est GFR (Non-Af Amer) > 60 BUN/Creatinine Ratio 35 H Glucose 88 Calculated Osmolality 281 Calcium 9.4 - ABG Interpretation ABG results: PT/INR, D-dimer PT 13.0 Seconds (9.4-12.1) H 04/10/18 10:09
[2018-04-18] MEDS: *HR* Rivaroxaban 15 MG TABLET PO SCH (22:39)
[2018-04-19] MEDS: Meropenem 1,000 MG in Water for inj. (sterile) 20 ML 10 ML IVP SCH ×3 (00:15→17:47)
[2018-04-19 05:03] LABS: Hematocrit 31.4 % (35.3-44.9); Hemoglobin 10.8 g/dL (11.5-15.4); Mean Corpuscular HGB Conc 34.4 g/dL (31.6-35.5); Mean Corpuscular Hemoglobin 32.5 pg (28.0-33.3); Mean Corpuscular Volume 94.6 fL (83.0-100.0); Mean Platelet Volume 10.8 fL (9.4-12.4); Platelet Count 280 K/mcL (140-400); Red Blood Count 3.32 M/mcL (3.82-4.97); Red Cell Distribution Width 13.8 % (11.5-14.5)
[2018-04-19 05:28] LABS: BUN/Creatinine Ratio 35 (6-26); Blood Urea Nitrogen 16 mg/dL (8-23); Calcium 9.4 mg/dL (8.6-10.3); Carbon Dioxide 23 mEq/L (23-29); Chloride 105 mEq/L (98-107); Glucose 88 mg/dL (70-105); Osmolality,Calculated 281 (280-300); Potassium 3.8 mEq/L (3.5-5.1); Sodium 135 mEq/L (136-145); eGFR For Non-African Americans > 60 (> 60)
[2018-04-19 06:11] LABS: Lymphocytes # 3.6 K/mcL (0.6-4.6); Monocytes # 1.4 K/mcL (0.0-1.3); Neutrophils # 1.9 K/mcL (1.6-8.9); Reactive Lymphocytes Present (Not Present)
[2018-04-19 06:12] LABS: Platelet Estimate Normal (Normal)
[2018-04-19] MEDS: Famotidine 20 MG TABLET PO SCH ×2 (07:54→21:47)
[2018-04-19] MEDS: *HR* Rivaroxaban 15 MG TABLET PO SCH ×2 (07:54→21:45)
[2018-04-19] MEDS: Aspirin 325 MG TABLET PO SCH (07:54)
[2018-04-19] MEDS: Loratadine 10 MG TABLET PO SCH (07:54)
[2018-04-19] MEDS: predniSONE 20 MG TABLET PO SCH (07:55)
--- NOTE | 2018-04-19 10:35 | Internal Med Progress Note ---
<Cain Fuchs - Last Filed: 04/19/18 13:11> Hospitalist Progress Note - Encounter Date of Encounter: 04/19/18 Time of Encounter: 09:20 - Subjective Interval History: 68 year old female with PMHx of venous stasis ulcer, HTN, and HLD admitted to [facility] for TIA. She states her TIA symptoms have resolved. She is also being treated for a venous stasis ulcer, hyponatremia, rash, and leukopenia. Yesterday her IV infiltrated on her right arm and she was found to have a right UE DVT and she is on xarelto. Patient has received neupogen injection x2 following bone marrow biopsy two days ago. She is doing well today with no complaints. She states her rash is continuing to improve. She denies TREVIÑO, rhinorrhea, blurred vision, fevers/chills, SOB, CP, abdominal pain, n/v/d, weakness, numbness. - Exam Vitals: Temp Pulse Resp BP Pulse Ox 98.1 F 77 17 120/70 90 04/19/18 08:10 04/19/18 08:10 04/19/18 08:10 04/19/18 08:10 04/19/18 08:10 Exam: Gen: no acute distress, awake, alert HEENT: dry tongue, small bullae on posterior aspect of tongue. Healing lesions on buccal mucosa. moist mucus membranes Heart: RRR, no murmurs Lungs: crackles in bases L>R, no wheezes Abdomen: soft, non-tender Extremities: wound vac and dressing on left LE, no swelling or tenderness in R upper extremity Vascular: pulses +2 in all extremities Skin: Rash improving Neuro: no facial droop, no focal deficits, sensation intact in all extremities - Assessment and Plan (1) Venous ulcer of leg Current Visit: Yes Status: Acute Assessment and Plan: Left lower extremity ID on consult Wound culture positive for Pseudomonas aeruginosa Disontinued cefepime due to rash Patitent's line in R UE infiltrated, will need to discuss with ID about a new line for continuation of meropenem CT showed subtle periosteal reaction, will likely receive Abx for 4-6 weeks ESR 44, CRP 39 Wound vac changes, per wound care Monitor renal function (2) Leukopenia Current Visit: Yes Status: Acute Assessment and Plan: Improved after receiving neupogen injection x2 following bone marrow biopsy WBC increased 3 > 6.9 today ANC increased 300 > 1900 today Patient recently started on meropenem Could be meropenem vs viral vs sepsis Respiratory viral panel negative Oncology on consult, will follow recommendations Peripheral blood smear - benign with no blasts Continue to monitor CBC (3) Rash Current Visit: Yes Status: Acute Assessment and Plan: Improving May be 2/2 recent use of bactrim or cefepime, autoimmune Rash with neutropenia may be concerning for underlying bone marrow etiology Dermatology consulted for punch biopsy to rule out leukemia cutis - Bx sent to [facility] for evaluation Ordered autoimmune labs, will follow up with rheumatology outpatient Continue topical hydrocortisone and oral prednisone (4) Hyponatremia Current Visit: Yes Status: Acute Assessment and Plan: Sodium 135 today Continue to monitor Discontinued fluids (5) Interstitial lung disease Current Visit: Yes Status: Acute Assessment and Plan: CT showed interstitial lung disease Patient has a cough, but denies SOB Concern for rheumatologic/vasculitic source with recent use of bactrim, rash, and joint swelling Ordered AUGUSTINE, BMP, CBC, Cryoglobulin, Histone Ab, lupus anticoagulant, histoplasma galactomannan, fungitell Rheumatology consulted, ordered CCP, complement 3 + 4, ANCA, and SSA, will follow up outpatient Continue incentive spirometer Mycoplasma pneumoniae IgM level was not clinically significant, but IgG was positive Pulmonology signed off Recommend follow up in 6-8 weeks for PFTs and HRCT, will need repeat CT (6) TIA (transient ischemic attack) Current Visit: Yes Status: Resolved Assessment and Plan: Symptoms have resolved No further intervention needed (7) PETR (acute kidney injury) Current Visit: Yes Status: Resolved Assessment and Plan: Resolved (8) Hypokalemia Current Visit: Yes Status: Resolved Assessment and Plan: replace as needed. (9) Deep venous thrombosis of right upper extremity Current Visit: Yes Status: Acute Assessment and Plan: Continue xarelto Will need to discuss with ID placement of new line for continuation of meropenem DVT Prophylaxis: Xarelto - Time Spent with Patient Total time spent is greater than 50% in coordination of care (as documented) at patient's floor/unit and/or counseling patient: less than 15 minutes Plan of Care Discussed with: patient Internal Medicine: Result - Labs CBC & Chem 7: 04/19/18 04:11 04/19/18 04:11 Labs: Short CBC 04/19/18 Range/Units 04:11 WBC 6.9 D (4.3-11.1) K/mcL Hgb 10.8 L (11.5-15.4) g/dL Hct 31.4 L (35.3-44.9) % Plt Count 280 (140-400) K/mcL Neutrophils # 1.9 (1.6-8.9) K/mcL BMP 04/19/18 04:11 Sodium 135 L Potassium 3.8 Chloride 105 Carbon Dioxide 23 BUN 16 Creatinine 0.46 L Glucose 88 Calcium 9.4 - ABG Interpretation ABG results: PT/INR, D-dimer PT 13.0 Seconds (9.4-12.1) H 04/10/18 10:09 Consult Discharge Plan - Plan Referrals: Donald Anderson DO [Partnered Physician] - 05/07/18 1:00 pm Elaina Andrade CNP [Primary Care Provider] - 04/21/18 12:30 pm Prescriptions: Rivaroxaban [Xarelto] 1 dose PO AD 30 Days pack <Kaila Rodrigez - Last Filed: 04/19/18 14:32> Hospitalist Progress Note - Encounter Date of Encounter: 04/19/18 - Exam Vitals: Temp Pulse Resp BP Pulse Ox 98.8 F 81 16 118/73 91 04/19/18 11:40 04/19/18 11:40 04/19/18 11:40 04/19/18 11:40 04/19/18 11:40 - Assessment and Plan (1) Venous ulcer of leg Current Visit: Yes Status: Acute (2) Hyponatremia Current Visit: Yes Status: Acute (3) TIA (transient ischemic attack) Current Visit: Yes Status: Resolved (4) PETR (acute kidney injury) Current Visit: Yes Status: Resolved (5) Rash Current Visit: Yes Status: Acute (6) Hypokalemia Current Visit: Yes Status: Resolved (7) Leukopenia Current Visit: Yes Status: Acute (8) Interstitial lung disease Current Visit: Yes Status: Acute (9) Deep venous thrombosis of right upper extremity Current Visit: Yes Status: Acute - Time Spent with Patient Total time spent is greater than 50% in coordination of care (as documented) at patient's floor/unit and/or counseling patient: Internal Medicine: Result - Labs CBC & Chem 7: 04/19/18 04:11 04/19/18 04:11 Labs: Short CBC 04/19/18 Range/Units 04:11 WBC 6.9 D (4.3-11.1) K/mcL Hgb 10.8 L (11.5-15.4) g/dL Hct 31.4 L (35.3-44.9) % Plt Count 280 (140-400) K/mcL Neutrophils # 1.9 (1.6-8.9) K/mcL BMP 04/19/18 04:11 Sodium 135 L Potassium 3.8 Chloride 105 Carbon Dioxide 23 BUN 16 Creatinine 0.46 L Glucose 88 Calcium 9.4 - ABG Interpretation ABG results: PT/INR, D-dimer PT 13.0 Seconds (9.4-12.1) H 04/10/18 10:09 - Attending Attestation I examined this patient and my medical decision-making was reviewed with the Resident Physician Dr. Fuchs. I agree with the documented findings, disposition and treatment plan as described except to the extent set forth below. Ms. Crespo is 68 year old female with PMHx of venous stasis ulcer, HTN, and HLD admitted to [facility] for TIA. She does have chronic LLE venous stasis ulcer for which she had wound vac and on chronic abx therapy as an out pt with Bactrim and Cefepime. Pt did develop diffuse papular rash later. Now she is off the Bactrim and Cefepime, and ID placed her on Meropenem. Her rash seems to be improving now. She does have neutropenia , which might be due to sepsis and Abx induced. No events over night. No cough / SOB Gen: A, A, O x 3 Ext: Improved swelling and erythema in Rt Arm a/p 1. Sepsis with Pneumonia and Left lower ext venous stasis ulcer 2. Pneumonia - bacterial cont IV abx Meropenem 3. Acute neutropenia ANC > 1500 d/c Neupogen inj cont neutropenic precautions bone marrow biopsy path report - P Heme Onc on board 4. Diffuse maculo papular rash mostly Abx induced improving tapering steroids skin biopsy - P 5. Rt UE DVT on Lovenox.. will switch to Xarelto <Cain Fuchs - Last Filed: 04/19/18 13:11> (1) Venous ulcer of leg Qualifiers: Laterality: left Qualified Code(s): I83.029 - Varicose veins of left lower extremity with ulcer of unspecified site; L97.929 - Non-pressure chronic ulcer of unspecified part of left lower leg with unspecified severity; L97.929 - Non- pressure chronic ulcer of unspecified part of left lower leg with unspecified severity; L97.929 - Non-pressure chronic ulcer of unspecified part of left lower leg with unspecified severity; L97.929 - Non-pressure chronic ulcer of unspecified part of left lower leg with unspecified severity (2) Leukopenia Qualifiers: Leukopenia type: neutropenia Neutropenia type: unspecified Qualified Code(s) : D70.9 - Neutropenia, unspecified <Kaila Rodrigez - Last Filed: 04/19/18 14:32> (1) Venous ulcer of leg Qualifiers: Laterality: left Qualified Code(s): I83.029 - Varicose veins of left lower extremity with ulcer of unspecified site; L97.929 - Non-pressure chronic ulcer of unspecified part of left lower leg with unspecified severity; L97.929 - Non- pressure chronic ulcer of unspecified part of left lower leg with unspecified severity; L97.929 - Non-pressure chronic ulcer of unspecified part of left lower leg with unspecified severity; L97.929 - Non-pressure chronic ulcer of unspecified part of left lower leg with unspecified severity (7) Leukopenia Qualifiers: Leukopenia type: neutropenia Neutropenia type: unspecified Qualified Code(s) : D70.9 - Neutropenia, unspecified
[2018-04-19 11:52] LABS: Myeloperoxidase Ab 0 AU/mL (0-19); Serine Protease-3 Antibody 2 AU/mL (0-19)
--- NOTE | 2018-04-19 18:49 | Oncology Inp Progress Note ---
Date of Encounter: 04/19/18 Time of Encounter: 12:00 (1) Leukopenia Current Visit: Yes Status: Acute Assessment and plan: possible demargination/drug reaction. s/p bone marro wprocedure and neupogen. Leucopenia resolved. Qualifiers: Leukopenia type: neutropenia Neutropenia type: unspecified Qualified Code (s): D70.9 - Neutropenia, unspecified (2) Deep venous thrombosis of right upper extremity Current Visit: Yes Status: Acute Assessment and plan: IV line removed. She is on anticoag xarelto 15mg BID. Continue short term anticoagulation. Follow up with hematology for DVT andbone marrow results. Qualifiers: Affected thrombotic vein of extremity: axillary Chronicity: acute Qualified Code(s): I82.A11 - Acute embolism and thrombosis of right axillary vein Oncology: Subj Interval history: feeling well, denies any complaints - Constitutional Vitals: Vital Signs Temp Pulse Resp BP Pulse Ox 04/19/18 16:40 97.7 F 76 17 105/66 93 04/19/18 11:40 98.8 F 81 16 118/73 91 04/19/18 08:10 98.1 F 77 17 120/70 90 04/19/18 05:38 97.6 F 62 15 113/81 90 04/18/18 22:39 122/78 04/18/18 21:00 97.6 F 80 15 99/75 93 Intake and Output 04/19/18 04/19/18 04/19/18 07:59 15:59 23:59 Intake Total 690 / 690 850 / 850 Output Total 350 / 350 Balance 340 / 340 850 / 850 Intake: IV Fluids Merrem 1,000 MG In Water for inj. (sterile) 10 ML @ 120 mls/ hr IVP Q8HR BRET Rx#:[id number] Oral 680 / 680 840 / 840 Output: Urine 350 / 350 Other: Meal Lunch Percent of Meal Consumed 100% # Voids 1 1 # Bowel Movements 0 0 Weight 94.2 kg Patient Weight 04/19/18 23:59 Weight 94.2 kg General appearance: no acute distress - Head Head exam: Present: atraumatic, normal inspection - Eye Eye exam: Present: sclera anicteric - ENT ENT exam: Present: mucous membranes moist - Respiratory Respiratory exam: Present: CTAB - Cardiovascular Cardiovascular exam: Present: +S1, +S2 - GI/Abdominal GI/Abdominal exam: Present: normal bowel sounds, soft - Neurological Exam Neurological exam: Present: alert, oriented X3, no focal deficits - Skin Skin exam: Present: rash Oncology: Obj Data - Labs CBC & Chem 7: 04/19/18 04:11 04/19/18 04:11 Labs: Laboratory Results - last 24 hr 04/16/18 04/17/18 04/19/18 17:48 10:09 04:11 WBC 6.9 D RBC 3.32 L Hgb 10.8 L Hct 31.4 L MCV 94.6 MCH 32.5 MCHC 34.4 RDW 13.8 Plt Count 280 MPV 10.8 Seg Neutrophils % 26.0 Band Neutrophils % 2.0 Lymphocytes % 52.0 Monocytes % 20.0 Neutrophils # 1.9 Lymphocytes # 3.6 Monocytes # 1.4 H Nucleated RBCs/100 WBC 1.0 H Reactive Lymphocytes Present A Platelet Estimate Normal Sodium Potassium Chloride Carbon Dioxide BUN Creatinine Est GFR ( Amer) Est GFR (Non-Af Amer) BUN/Creatinine Ratio Glucose Calculated Osmolality Calcium Myeloperoxidase Ab 0 RODRIGUEZ-1 IgG Antibody 0 Serine Protease 3 Ab 2 04/19/18 04:11 WBC RBC Hgb Hct MCV MCH MCHC RDW Plt Count MPV Seg Neutrophils % Band Neutrophils % Lymphocytes % Monocytes % Neutrophils # Lymphocytes # Monocytes # Nucleated RBCs/100 WBC Reactive Lymphocytes Platelet Estimate Sodium 135 L Potassium 3.8 Chloride 105 Carbon Dioxide 23 BUN 16 Creatinine 0.46 L Est GFR ( Amer) > 60 Est GFR (Non-Af Amer) > 60 BUN/Creatinine Ratio 35 H Glucose 88 Calculated Osmolality 281 Calcium 9.4 Myeloperoxidase Ab RODRIGUEZ-1 IgG Antibody Serine Protease 3 Ab - ABG Interpretation ABG results: PT/INR, D-dimer PT 13.0 Seconds (9.4-12.1) H 04/10/18 10:09 Consult Discharge Plan - Plan Referrals: Donald Anderson DO [Partnered Physician] - 05/07/18 1:00 pm Elaina Andrade CNP [Primary Care Provider] - 04/21/18 12:30 pm Prescriptions: Rivaroxaban [Xarelto] 1 dose PO AD 30 Days pack
[2018-04-20] MEDS: Meropenem 1,000 MG in Water for inj. (sterile) 20 ML 10 ML IVP SCH ×3 (00:34→16:54)
[2018-04-20 05:47] LABS: Basophils # 0.1 K/mcL (0.0-0.2); Basophils % 0.8 %; Hematocrit 35.1 % (35.3-44.9); Hemoglobin 11.6 g/dL (11.5-15.4); Lymphocytes # 2.8 K/mcL (0.6-4.6); Lymphocytes % 17.6 %; Mean Corpuscular Hemoglobin 31.9 pg (28.0-33.3); Mean Corpuscular Volume 96.4 fL (83.0-100.0); Mean Platelet Volume 10.3 fL (9.4-12.4); Monocytes # 1.4 K/mcL (0.0-1.3); Monocytes % 8.9 %; Neutrophils # 10.5 K/mcL (1.6-8.9); Nucleated Red Blood Cells 0.4 /100 WBC (0); Platelet Count 322 K/mcL (140-400); Red Blood Count 3.64 M/mcL (3.82-4.97); Segmented Neutrophils % 66.7 %
[2018-04-20 06:06] LABS: BUN/Creatinine Ratio 39 (6-26); Blood Urea Nitrogen 19 mg/dL (8-23); Calcium 9.8 mg/dL (8.6-10.3); Carbon Dioxide 24 mEq/L (23-29); Chloride 103 mEq/L (98-107); Glucose 93 mg/dL (70-105); Osmolality,Calculated 282 (280-300); Potassium 3.9 mEq/L (3.5-5.1); Sodium 135 mEq/L (136-145); eGFR For Non-African Americans > 60 (> 60)
[2018-04-20 06:12] LABS: Platelet Estimate Increased (Normal); Polychromasia 2+ (Not Present)
[2018-04-20] MEDS: Loratadine 10 MG TABLET PO SCH (08:54)
[2018-04-20] MEDS: *HR* Rivaroxaban 15 MG TABLET PO SCH ×2 (08:54→19:46)
[2018-04-20] MEDS: predniSONE 20 MG TABLET PO SCH (08:54)
[2018-04-20] MEDS: Famotidine 20 MG TABLET PO SCH ×2 (08:54→19:46)
--- NOTE | 2018-04-20 09:21 | Internal Med Progress Note ---
<Cain Fuchs - Last Filed: 04/20/18 12:03> Hospitalist Progress Note - Encounter Date of Encounter: 04/20/18 Time of Encounter: 07:30 - Subjective Interval History: 68 year old female with PMHx of venous stasis ulcer, HTN, and HLD admitted to [facility] for TIA. She states her TIA symptoms have resolved. She is also being treated for a venous stasis ulcer, hyponatremia, rash, and leukopenia. Patient on xarelto for R UE DVT after her IV infiltrated. Patient has received neupogen injection x2 following bone marrow biopsy on 04/17. She is doing well today with no complaints. She states her rash has almost resolved. She denies TREVIÑO, rhinorrhea, blurred vision, fevers/chills, SOB, CP, abdominal pain, n/v/d, weakness, numbness. - Exam Vitals: Temp Pulse Resp BP Pulse Ox 98.2 F 79 16 129/70 96 04/20/18 07:32 04/20/18 07:32 04/20/18 07:32 04/20/18 07:32 04/20/18 07:32 Exam: Gen: no acute distress, awake, alert HEENT: moist mucus membranes Heart: RRR, no murmurs Lungs: crackles in bases, no wheezes Abdomen: soft, non-tender Extremities: wound vac and dressing on left LE, no swelling or tenderness in R upper extremity Vascular: pulses +2 in all extremities Skin: Rash improving Neuro: no facial droop, no focal deficits, sensation intact in all extremities - Assessment and Plan (1) Venous ulcer of leg Current Visit: Yes Status: Acute Assessment and Plan: Left lower extremity ID on consult Wound culture positive for Pseudomonas aeruginosa Disontinued cefepime due to rash On IV meropenem Patitent's line in R UE infiltrated, will need to discuss with ID about a new line for continuation of meropenem CT showed subtle periosteal reaction, will likely receive Abx for 4-6 weeks ESR 44, CRP 39 Wound vac changes, per wound care Monitor renal function (2) Leukopenia Current Visit: Yes Status: Acute Assessment and Plan: Improved after receiving neupogen injection x2 following bone marrow biopsy WBC increased 6.9>15.8 today ANC increased 1,900>10,500 today Patient on meropenem Could be meropenem vs viral vs sepsis Respiratory viral panel negative Oncology on consult, will follow recommendations Bone marrow biopsy results pending Peripheral blood smear - benign with no blasts Continue to monitor CBC (3) Rash Current Visit: Yes Status: Acute Assessment and Plan: Improving May be 2/2 recent use of bactrim or cefepime, autoimmune Rash with neutropenia may be concerning for underlying bone marrow etiology Dermatology consulted for punch biopsy to rule out leukemia cutis - Bx sent to [facility] for evaluation Ordered autoimmune labs, will follow up with rheumatology outpatient Continue topical hydrocortisone and oral prednisone (4) Hyponatremia Current Visit: Yes Status: Acute Assessment and Plan: Sodium 135 today Continue to monitor Discontinued fluids (5) Interstitial lung disease Current Visit: Yes Status: Acute Assessment and Plan: CT showed interstitial lung disease Concern for rheumatologic/vasculitic source with recent use of bactrim, rash, and joint swelling Ordered AUGUSTINE, BMP, CBC, Cryoglobulin, Histone Ab, lupus anticoagulant, histoplasma galactomannan, fungitell Rheumatology consulted, ordered CCP, complement 3 + 4, ANCA, and SSA, will follow up outpatient Continue incentive spirometer Mycoplasma pneumoniae IgM level was not clinically significant, but IgG was positive Pulmonology signed off Recommend follow up in 6-8 weeks for PFTs and HRCT, will need repeat CT (6) TIA (transient ischemic attack) Current Visit: Yes Status: Resolved Assessment and Plan: Symptoms have resolved No further intervention needed (7) PETR (acute kidney injury) Current Visit: Yes Status: Resolved Assessment and Plan: Resolved (8) Hypokalemia Current Visit: Yes Status: Resolved Assessment and Plan: Replace as needed (9) Deep venous thrombosis of right upper extremity Current Visit: Yes Status: Acute Assessment and Plan: Continue xarelto Will need to discuss with ID placement of new line for continuation of meropenem DVT Prophylaxis: Xarelto - Time Spent with Patient Total time spent is greater than 50% in coordination of care (as documented) at patient's floor/unit and/or counseling patient: less than 15 minutes Plan of Care Discussed with: patient Internal Medicine: Result - Labs CBC & Chem 7: 04/20/18 05:04 04/20/18 05:04 Labs: Short CBC 04/20/18 Range/Units 05:04 WBC 15.8 H D (4.3-11.1) K/mcL Hgb 11.6 (11.5-15.4) g/dL Hct 35.1 L (35.3-44.9) % Plt Count 322 (140-400) K/mcL Neutrophils # 10.5 H (1.6-8.9) K/mcL BMP 04/20/18 05:04 Sodium 135 L Potassium 3.9 Chloride 103 Carbon Dioxide 24 BUN 19 Creatinine 0.49 L Glucose 93 Calcium 9.8 - ABG Interpretation ABG results: PT/INR, D-dimer PT 13.0 Seconds (9.4-12.1) H 04/10/18 10:09 Consult Discharge Plan - Plan Referrals: Donald Anderson DO [Partnered Physician] - 05/07/18 1:00 pm Elaina Andrade CNP [Primary Care Provider] - 04/21/18 12:30 pm Prescriptions: Rivaroxaban [Xarelto] 1 dose PO AD 30 Days pack <Kaila Rodrigez - Last Filed: 04/20/18 12:29> Hospitalist Progress Note - Encounter Date of Encounter: 04/20/18 - Exam Vitals: Temp Pulse Resp BP Pulse Ox 98.5 F 72 16 112/87 96 04/20/18 11:06 04/20/18 11:06 04/20/18 11:06 04/20/18 11:06 04/20/18 07:32 - Assessment and Plan (1) Venous ulcer of leg Current Visit: Yes Status: Acute (2) Hyponatremia Current Visit: Yes Status: Acute (3) TIA (transient ischemic attack) Current Visit: Yes Status: Resolved (4) PETR (acute kidney injury) Current Visit: Yes Status: Resolved (5) Rash Current Visit: Yes Status: Acute (6) Hypokalemia Current Visit: Yes Status: Resolved (7) Leukopenia Current Visit: Yes Status: Acute (8) Interstitial lung disease Current Visit: Yes Status: Acute (9) Deep venous thrombosis of right upper extremity Current Visit: Yes Status: Acute - Time Spent with Patient Total time spent is greater than 50% in coordination of care (as documented) at patient's floor/unit and/or counseling patient: Internal Medicine: Result - Labs CBC & Chem 7: 04/20/18 05:04 04/20/18 05:04 Labs: Short CBC 04/20/18 Range/Units 05:04 WBC 15.8 H D (4.3-11.1) K/mcL Hgb 11.6 (11.5-15.4) g/dL Hct 35.1 L (35.3-44.9) % Plt Count 322 (140-400) K/mcL Neutrophils # 10.5 H (1.6-8.9) K/mcL BMP 04/20/18 05:04 Sodium 135 L Potassium 3.9 Chloride 103 Carbon Dioxide 24 BUN 19 Creatinine 0.49 L Glucose 93 Calcium 9.8 - ABG Interpretation ABG results: PT/INR, D-dimer PT 13.0 Seconds (9.4-12.1) H 04/10/18 10:09 - Attending Attestation I examined this patient and my medical decision-making was reviewed with the Resident Physician Dr. Fuchs. I agree with the documented findings, disposition and treatment plan as described except to the extent set forth below. Ms. Crespo is 68 year old female with PMHx of venous stasis ulcer, HTN, and HLD admitted to [facility] for TIA. She does have chronic LLE venous stasis ulcer for which she had wound vac and on chronic abx therapy as an out pt with Bactrim and Cefepime. Pt did develop diffuse papular rash later. Now she is off the Bactrim and Cefepime, and ID placed her on Meropenem. Her rash seems to be improving now. She does have neutropenia , which might be due to sepsis and Abx induced. No events over night. No cough / SOB Gen: A, A, O x 3 Ext: Improved swelling and erythema in Rt Arm a/p 1. Sepsis with Pneumonia and Left lower ext venous stasis ulcer 2. Pneumonia - bacterial cont IV abx Meropenem 3. Acute neutropenia resolved d/c Neupogen inj bone marrow biopsy path report - P Heme Onc on board 4. Diffuse maculo papular rash mostly Abx induced improving tapering steroids skin biopsy - P 5. Rt UE DVT On Xarelto Possible d/c home in AM after Mid line / PICC line placement for intermediate frame tender IV Abx <Cain Fuchs - Last Filed: 04/20/18 12:03> (1) Venous ulcer of leg Qualifiers: Laterality: left Qualified Code(s): I83.029 - Varicose veins of left lower extremity with ulcer of unspecified site; L97.929 - Non-pressure chronic ulcer of unspecified part of left lower leg with unspecified severity; L97.929 - Non- pressure chronic ulcer of unspecified part of left lower leg with unspecified severity; L97.929 - Non-pressure chronic ulcer of unspecified part of left lower leg with unspecified severity; L97.929 - Non-pressure chronic ulcer of unspecified part of left lower leg with unspecified severity (2) Leukopenia Qualifiers: Leukopenia type: neutropenia Neutropenia type: unspecified Qualified Code(s) : D70.9 - Neutropenia, unspecified (9) Deep venous thrombosis of right upper extremity Qualifiers: Affected thrombotic vein of extremity: axillary Chronicity: acute Qualified Code(s): I82.A11 - Acute embolism and thrombosis of right axillary vein <Kaila Rodrigez - Last Filed: 04/20/18 12:29> (1) Venous ulcer of leg Qualifiers: Laterality: left Qualified Code(s): I83.029 - Varicose veins of left lower extremity with ulcer of unspecified site; L97.929 - Non-pressure chronic ulcer of unspecified part of left lower leg with unspecified severity; L97.929 - Non- pressure chronic ulcer of unspecified part of left lower leg with unspecified severity; L97.929 - Non-pressure chronic ulcer of unspecified part of left lower leg with unspecified severity; L97.929 - Non-pressure chronic ulcer of unspecified part of left lower leg with unspecified severity (7) Leukopenia Qualifiers: Leukopenia type: neutropenia Neutropenia type: unspecified Qualified Code(s) : D70.9 - Neutropenia, unspecified (9) Deep venous thrombosis of right upper extremity Qualifiers: Affected thrombotic vein of extremity: axillary Chronicity: acute Qualified Code(s): I82.A11 - Acute embolism and thrombosis of right axillary vein
[2018-04-21] MEDS: Meropenem 1,000 MG in Water for inj. (sterile) 20 ML 10 ML IVP SCH ×3 (00:33→15:46)
[2018-04-21 04:43] LABS: Hematocrit 33.5 % (35.3-44.9); Hemoglobin 11.2 g/dL (11.5-15.4); Mean Corpuscular HGB Conc 33.4 g/dL (31.6-35.5); Mean Corpuscular Hemoglobin 31.9 pg (28.0-33.3); Mean Corpuscular Volume 95.4 fL (83.0-100.0); Mean Platelet Volume 10.3 fL (9.4-12.4); Nucleated Red Blood Cells 0.5 /100 WBC (0); Platelet Count 299 K/mcL (140-400); Red Blood Count 3.51 M/mcL (3.82-4.97)
[2018-04-21 04:54] LABS: BUN/Creatinine Ratio 47 (6-26); Blood Urea Nitrogen 21 mg/dL (8-23); Calcium 9.5 mg/dL (8.6-10.3); Carbon Dioxide 24 mEq/L (23-29); Chloride 103 mEq/L (98-107); Glucose 89 mg/dL (70-105); Osmolality,Calculated 280 (280-300); Sodium 134 mEq/L (136-145); eGFR For Non-African Americans > 60 (> 60)
[2018-04-21 05:08] LABS: Lymphocytes # 2.1 K/mcL (0.6-4.6); Monocytes # 2.3 K/mcL (0.0-1.3); Neutrophils # 8.1 K/mcL (1.6-8.9); Platelet Estimate Normal (Normal)
[2018-04-21] MEDS: Loratadine 10 MG TABLET PO SCH (08:23)
[2018-04-21] MEDS: predniSONE 20 MG TABLET PO SCH (08:24)
[2018-04-21] MEDS: *HR* Rivaroxaban 15 MG TABLET PO SCH ×2 (08:24→21:43)
[2018-04-21] MEDS: Famotidine 20 MG TABLET PO SCH ×2 (08:24→21:43)
--- NOTE | 2018-04-21 10:17 | Discharge Summary ---
<Danilo Esquivel S - Last Filed: 04/21/18 14:26> - NOTES TO OUTPATIENT PROVIDER Notes to Outpatient Provider: Pt needs refill on Tramadol. Follow up on wound. Follow up on outpatient pulmonary workup. Follow up on dermatology punch biopsy results Orders not resulted at time of discharge: Pending orders 04/17/18 09:58 Surgical Pathology [PTH] Routine 04/17/18 14:45 Bone Marrow, Flow & Cytogen Routine Date of Encounter: 04/21/18 Time of Encounter: 10:15 - Discharge Diagnosis (1) Venous ulcer of leg Priority: Primary Status: Acute Qualifiers: Laterality: left Qualified Code(s): I83.029 - Varicose veins of left lower extremity with ulcer of unspecified site; L97.929 - Non-pressure chronic ulcer of unspecified part of left lower leg with unspecified severity; L97.929 - Non- pressure chronic ulcer of unspecified part of left lower leg with unspecified severity; L97.929 - Non-pressure chronic ulcer of unspecified part of left lower leg with unspecified severity; L97.929 - Non-pressure chronic ulcer of unspecified part of left lower leg with unspecified severity (2) Deep venous thrombosis of right upper extremity Priority: Secondary Status: Resolved Qualifiers: Affected thrombotic vein of extremity: axillary Chronicity: acute Qualified Code(s): I82.A11 - Acute embolism and thrombosis of right axillary vein (3) TIA (transient ischemic attack) Priority: Secondary Status: Resolved (4) Hyponatremia Priority: Secondary Status: Resolved (5) PETR (acute kidney injury) Priority: Secondary Status: Resolved (6) Rash Priority: Secondary Status: Resolved (7) Hypokalemia Priority: Secondary Status: Resolved (8) Leukopenia Priority: Secondary Status: Resolved Qualifiers: Leukopenia type: neutropenia Neutropenia type: unspecified Qualified Code (s): D70.9 - Neutropenia, unspecified (9) Interstitial lung disease Priority: Secondary Status: Chronic (10) HTN (hypertension) Priority: Secondary Status: Chronic Qualifiers: Hypertension type: essential hypertension Qualified Code(s): I10 - Essential (primary) hypertension Hospital course: Ms. Crespo is a 68 year old female admitted 04/10 (hospital day 11) She has had chronic venous stasis ulcer on the right leg for the last year and was being treated with bactrim and cefepime, (+) for psuedomonas. She began to have stroke like symptoms at 730am including slurred speech and facial droop. Her s/s resolved at [facility]. -CT head negative, MRI brain negative -Carotid duplex ultrasound showed B/L carotid nonstenotic plaques Pt had an PETR, which subsequently resolved -BUN 21, Creatinine 0.45 today She had a genralized rash thought to be due to bactrim. -abx were switched to meropenem and cefepime -it has continued to improve -derm saw and did a punch bx to rule out leukemia cutis, awaiting bx report -autoantibody labs normal, anti-Alejandrina-1 was WNL -pt to be discharged on 3 more days of 10mg PO prednisone, dermatology ok with this. On 04/[address] scan of chest after spiking a fever and developing a dry cough. 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 Today WBC count is 13 -ANC = 8060 (normal) today On 04/17 the pt had DVT in right subclavian/axillary/brachial and R UE basilic vein acute thrombosis. L UE was normal. The pt was started on rivaroxaban -IV infiltrated 04/17 during the nighttime -will discharge on rivaroxaban --> pharmacy dosed and prescription is ready to be picked up Midline placed in left arm, ID consulted for placement. Dr. Palma discharging on meropenem, -wound vac to be changed / Currently the pt is stable for discharge. She has no chest pain, sob, n/v/d, numbness or tingling, dizziness, slurred speech, forgetfulness. The pt got a walker for use at home and feels stable with it. She is going to see her PCP on . Discharge discussed with: patient Time spent discussing smoking cessation with patient: 3 to 10 minutes - Time Spent with Patient Total time spent providing and/or coordinating discharge services: Less than 30 minutes - Discharge Medications Prescriptions: Hydrocortisone 1% CREAM [Cortaid] 1 appl TP BID #1 bottle predniSONE [PredniSONE] 10 mg PO DAILY 3 Days #3 tablet Rivaroxaban [Xarelto] 1 dose PO AD 30 Days pack Tramadol HCl [Ultram] 50 mg PO TID PRN 7 Days #21 tab PRN Reason: chronic pain Home Medications: Losartan/Hydrochlorothiazide [Losartan-Hctz 100-25 mg Tab] 1 tab PO DAILY [History] Ibuprofen [Motrin Ib] 400 mg PO BID PRN 04/10/18 [History] Rivaroxaban [Xarelto] 1 dose PO AD 30 Days pack 04/18/18 [Rx] Acetaminophen [Tylenol] 650 mg PO Q6HR PRN tablet 04/21/18 [Rx] Benzonatate [Tessalon] 100 mg PO TID PRN capsule 04/21/18 [Rx] DiphenhydraMINE [Benadryl] 25 mg IVP Q6HR PRN vial 04/21/18 [Rx] Famotidine [Pepcid] 20 mg PO BID tablet 04/21/18 [Rx] Hydrocortisone 1% CREAM [Cortaid] 1 appl TP BID #1 bottle 04/21/18 [Rx] Ipratropium/Albuterol Neb [Duoneb] 3 ml IH [id number] PRN inhsol 04/21/18 [Rx] Loratadine [Claritin] 10 mg PO DAILY tablet 04/21/18 [Rx] Ondansetron ODT [Zofran ODT] 4 mg SL Q6HR PRN tab.rapdis 04/21/18 [Rx] Saliva Stimulant [Biotene Moisturizing Rinse] 1 spray PO Q2H PRN bottle [Rx] Tramadol HCl [Ultram] 50 mg PO TID PRN 7 Days #21 tab 04/21/18 [Rx] predniSONE [PredniSONE] 10 mg PO DAILY 3 Days #3 tablet 04/21/18 [Rx] Allergies/Adverse Reactions: 3 Allergy/AdvReac Type Severity Reaction Status Date / Time sulfamethoxazole Allergy Hives Verified 04/10/18 11:33 [From Bactrim] trimethoprim [From Bactrim] Allergy Hives Verified 04/10/18 11:33 Date of admission: 04/10/18 18:36 Primary care physician: Elaina Andrade CNP Consults: 04/14/18 17:23 Consult to Oncology [CONS] Routine Consulting Provider: [facility] Reason for Consult: Leukopenia with neutropenia over past 3 days Time Notified: 17:00 Call Completed: Yes 04/15/18 14:06 Consult to Rheumatology [CONS] Routine Consulting Provider: Tyrone Santos Reason for Consult: Interstitial lung disease, joint pain, rash, leukopenia Time Notified: 14:07 Call Completed: Yes 04/16/18 10:33 Consult to Dermatology [CONS] Routine Consulting Provider: [facility] Reason for Consult: rash with neutropenia, rule out potential leukemia cutis , need for bx? Call Completed: Yes 04/17/18 09:58 Consult to Interventional Radiology [CONS] Routine Consulting Provider: Radiology [facility] Reason for Consult: Bone marrow bx with aspiration Call Completed: Yes Discharging clinician: Danilo Esquivel - Constitutional Vitals: Temp Pulse Resp BP Pulse Ox 98.0 F 78 15 120/92 92 04/21/18 06:25 04/21/18 06:25 04/21/18 06:25 04/21/18 06:25 04/21/18 06:25 General appearance: Present: A&O X 3, no acute distress, answers questions appropriately - Head Head exam: Present: atraumatic - Respiratory Respiratory exam: Present: decreased breath sounds - Cardiovascular Cardiovascular exam: Present: RRR, +S1, +S2. Absent: JVD - GI/Abdominal GI/Abdominal exam: Present: no peritoneal signs. Absent: distended, tenderness - Neurological Exam Neurological exam: Present: alert, altered, oriented X3, no focal deficits. Absent: motor sensory deficit, facial droop - Psychiatric Psychiatric exam: Present: normal affect, normal mood - Skin Skin exam: Present: rash (on back) - Patient Status Disposition: Home, Self-Care Condition: Good Overall status at discharge: patient is progressing back to baseline - Discharge Instructions Follow Up With: Donald Anderson DO [Partnered Physician] - 05/07/18 1:00 pm Elaina Andrade CNP [Primary Care Provider] - 04/30/18 12:30 pm Yulia Gates MD [Partnered Physician] - 04/30/18 2:40 pm - Diet and Activity Activity: ambulate only with your walker, increase activity as tolerated Diet: advance to your usual diet, regular diet <Kaila Rodrigez - Last Filed: 04/21/18 17:08> - NOTES TO OUTPATIENT PROVIDER Notes to Outpatient Provider: f/u with PCP in one week. f/u with Heme Onc in 1 week. f/u with ID Dr. Gates on 04/29/18 Orders not resulted at time of discharge: Pending orders 04/17/18 14:45 Bone Marrow, Flow & Cytogen Routine 04/21/18 12:42 Surgical Pathology [PTH] Routine 04/22/18 04:00 CMP [Comprehensive Metabolic Panel] AM 0400 Complete Blood Count [HEME] AM 0400 Date of Encounter: 04/21/18 - Discharge Diagnosis (1) Venous ulcer of leg Priority: Primary Status: Acute Qualifiers: Laterality: left Qualified Code(s): I83.029 - Varicose veins of left lower extremity with ulcer of unspecified site; L97.929 - Non-pressure chronic ulcer of unspecified part of left lower leg with unspecified severity; L97.929 - Non- pressure chronic ulcer of unspecified part of left lower leg with unspecified severity; L97.929 - Non-pressure chronic ulcer of unspecified part of left lower leg with unspecified severity; L97.929 - Non-pressure chronic ulcer of unspecified part of left lower leg with unspecified severity (2) Hyponatremia Priority: Secondary Status: Resolved (3) TIA (transient ischemic attack) Priority: Secondary Status: Resolved (4) PETR (acute kidney injury) Priority: Secondary Status: Resolved (5) HTN (hypertension) Priority: Secondary Status: Chronic Qualifiers: Hypertension type: essential hypertension Qualified Code(s): I10 - Essential (primary) hypertension (6) Rash Priority: Secondary Status: Resolved (7) Hypokalemia Priority: Secondary Status: Resolved (8) Leukopenia Priority: Secondary Status: Resolved Qualifiers: Leukopenia type: neutropenia Neutropenia type: unspecified Qualified Code (s): D70.9 - Neutropenia, unspecified (9) Interstitial lung disease Priority: Secondary Status: Chronic (10) Deep venous thrombosis of right upper extremity Priority: Secondary Status: Resolved Qualifiers: Affected thrombotic vein of extremity: axillary Chronicity: acute Qualified Code(s): I82.A11 - Acute embolism and thrombosis of right axillary vein Hospital course: Ms. Crespo is a 68 year old female - Time Spent with Patient Total time spent providing and/or coordinating discharge services: Date of admission: 04/10/18 18:36 Primary care physician: Elaina Andrade CNP Consults: 04/14/18 17:23 Consult to Oncology [CONS] Routine Consulting Provider: [facility] Reason for Consult: Leukopenia with neutropenia over past 3 days Time Notified: 17:00 Call Completed: Yes 04/15/18 14:06 Consult to Rheumatology [CONS] Routine Consulting Provider: Tyrone Santos Reason for Consult: Interstitial lung disease, joint pain, rash, leukopenia Time Notified: 14:07 Call Completed: Yes 04/16/18 10:33 Consult to Dermatology [CONS] Routine Consulting Provider: D[facility]at[facility] [place] Reason for Consult: rash with neutropenia, rule out potential leukemia cutis , need for bx? Call Completed: Yes 04/17/18 09:58 Consult to Interventional Radiology [CONS] Routine Consulting Provider: Radiology [facility] Reason for Consult: Bone marrow bx with aspiration Call Completed: Yes 04/21/18 14:01 Midline [Consult to Invasive Line Access Team] [CONS] Routine Reason for Consult: IV Abx - Meropenem Q8hr x 10 days Line Type: Midline PICC line indications: residential Med/Antibiotic - Constitutional Vitals: Temp Pulse Resp BP Pulse Ox 98.0 F 74 15 143/83 99 04/21/18 15:42 04/21/18 15:42 04/21/18 15:42 04/21/18 15:42 04/21/18 15:42 Exam: Gen: no acute distress, awake, alert HEENT: moist mucus membranes Heart: RRR, no murmurs Lungs: crackles in bases, no wheezes Abdomen: soft, non-tender Extremities: wound vac and dressing on left LE, no swelling or tenderness in R upper extremity Vascular: pulses +2 in all extremities Skin: Rash improving, still some rash on the back Neuro: no facial droop, no focal deficits, sensation intact in all extremities - Attending Attestation I examined this patient and my medical decision-making was reviewed with the Resident Physician Dr. Esquivel. I agree with the documented findings, disposition and treatment plan as described except to the extent set forth below. Ms. Crespo is 68 year old female with PMHx of venous stasis ulcer, HTN, and HLD admitted to [facility] for TIA. She does have chronic LLE venous stasis ulcer for which she had wound vac and on chronic abx therapy as an out pt with Bactrim and Cefepime. Pt did develop diffuse papular rash later. Now she is off the Bactrim and Cefepime, and ID placed her on Meropenem. Her rash improved now. She does have neutropenia , which might be due to sepsis and Abx induced. No events over night. No cough / SOB Gen: A, A, O x 3 Ext: Improved swelling and erythema in Rt Arm a/p 1. Sepsis with Pneumonia and Left lower ext venous stasis ulcer 2. Pneumonia - bacterial cont IV abx Meropenem 3. Acute neutropenia resolved bone marrow biopsy path report - P Heme Onc on board 4. Diffuse maculo papular rash mostly Abx induced improved cont tapering steroids skin biopsy - P 5. Rt UE DVT On Xarelto 6. Left tibial osteomyelitis / Chronic venous stasis ulcer Wound cx grew pseudomonas cont Meropenem 10 more days ( total 6 weeks ) f/u with ID on 04/29/18 placed Left forearm midline today Medically stable to d/c.. Waiting on home IV abx infusion set up
--- NOTE | 2018-04-21 10:46 | Oncology Inp Progress Note ---
<DaDonald Bessie - Last Filed: 04/21/18 16:41> Date of Encounter: 04/21/18 Time of Encounter: 10:44 (1) Leukopenia Current Visit: Yes Status: Resolved Assessment and plan: Resolved. Absolute neutrophil count today is 8060. 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 No evidence of malignancy. Patient had 2 doses of Neupogen and responded well. Qualifiers: Leukopenia type: neutropenia Neutropenia type: unspecified Qualified Code (s): D70.9 - Neutropenia, unspecified (2) Deep venous thrombosis of right upper extremity Current Visit: Yes Status: Resolved Assessment and plan: Right subclavian, axillary, and brachial vein with acute thrombosis. Asymptomatic at this time. Currently on Xarelto 15 mg twice a day. Continue for 21 days then transition to 20 mg daily for minimum of 3 months of treatment. Follow up with hematology/oncology as an outpatient for anticoagulation management. Qualifiers: Affected thrombotic vein of extremity: axillary Chronicity: acute Qualified Code(s): I82.A11 - Acute embolism and thrombosis of right axillary vein Oncology: Subj Interval history: Patient seen and examined at bedside. Patient states that she feels much better this morning. She has no complaints at this time. - Constitutional Vitals: Vital Signs Temp Pulse Resp BP Pulse Ox 04/21/18 06:25 98.0 F 78 15 120/92 92 04/21/18 04:00 98.4 F 68 17 116/73 92 04/20/18 20:00 98.3 F 83 17 106/71 93 04/20/18 16:01 98.9 F 82 16 114/80 04/20/18 11:06 98.5 F 72 16 112/87 Intake and Output 04/20/18 04/21/18 04/21/18 23:59 07:59 15:59 Intake Total 730 / 730 480 / 480 500 / 500 Output Total 400 / 400 400 / 400 Balance 330 / 330 80 / 80 500 / 500 Intake: IV Fluids 20 Merrem 1,000 MG In Water for inj. (sterile) 10 ML @ 120 mls/ hr IVP Q8HR [facility] Rx#:[id number] Oral 720 / 720 480 / 480 480 / 480 Output: Urine 400 / 400 400 / 400 Other: Meal Dinner Breakfast Percent of Meal Consumed 100% 100% Weight 94.4 kg Patient Weight 04/21/18 23:59 Weight 94.4 kg General appearance: no acute distress - ENT ENT exam: Present: mucous membranes moist - Respiratory Respiratory exam: Present: CTAB. Absent: rales, rhonchi - Cardiovascular Cardiovascular exam: Present: RRR. Absent: irregular rhythm, systolic murmur - GI/Abdominal GI/Abdominal exam: Present: soft. Absent: distended, tenderness - Extremities Exam Additional comments: Wound VAC applied to left lower extremity Oncology: Obj Data - Labs CBC & Chem 7: 04/21/18 03:59 04/21/18 03:59 Labs: Laboratory Results - last 24 hr 04/21/18 04/21/18 03:59 03:59 WBC 13.0 H RBC 3.51 L Hgb 11.2 L Hct 33.5 L MCV 95.4 MCH 31.9 MCHC 33.4 RDW 14.0 Plt Count 299 MPV 10.3 Seg Neutrophils % 32.0 Band Neutrophils % 30.0 H Lymphocytes % 16.0 Monocytes % 18.0 Metamyelocytes % 4.0 H Neutrophils # 8.1 Lymphocytes # 2.1 Monocytes # 2.3 H Nucleated RBCs/100 WBC 0.5 H Platelet Estimate Normal Sodium 134 L Potassium 4.0 Chloride 103 Carbon Dioxide 24 BUN 21 Creatinine 0.45 L Est GFR ( Amer) > 60 Est GFR (Non-Af Amer) > 60 BUN/Creatinine Ratio 47 H Glucose 89 Calculated Osmolality 280 Calcium 9.5 - ABG Interpretation ABG results: PT/INR, D-dimer PT 13.0 Seconds (9.4-12.1) H 04/10/18 10:09 Consult Discharge Plan - Plan Referrals: Donald Anderson DO [Partnered Physician] - 05/07/18 1:00 pm Elaina Andrade CNP [Primary Care Provider] - 04/30/18 12:30 pm Yulia Gates MD [Partnered Physician] - 04/30/18 2:40 pm Prescriptions: Hydrocortisone 1% CREAM [Cortaid] 1 appl TP BID #1 bottle predniSONE [PredniSONE] 10 mg PO DAILY 3 Days #3 tablet Rivaroxaban [Xarelto] 1 dose PO AD 30 Days pack Tramadol HCl [Ultram] 50 mg PO TID PRN 7 Days #21 tab PRN Reason: chronic pain <Catracho Galarza - Last Filed: 04/21/18 17:03> Date of Encounter: 04/21/18 (1) Leukopenia Current Visit: Yes Status: Resolved Qualifiers: Leukopenia type: neutropenia Neutropenia type: unspecified Qualified Code (s): D70.9 - Neutropenia, unspecified (2) Deep venous thrombosis of right upper extremity Current Visit: Yes Status: Resolved Qualifiers: Affected thrombotic vein of extremity: axillary Chronicity: acute Qualified Code(s): I82.A11 - Acute embolism and thrombosis of right axillary vein Oncology: Subj Interval history: Reviewed with patient not suspicious for a primary hematologic process ( blasts 3%). Follow patient upon discharge for management of anti-coag ablation. I examined this patient and my medical decision-making was reviewed with Donald Roberson. I agree with the documented findings, disposition and treatment plan as described except to the extent set forth below. - Constitutional Vitals: Vital Signs Temp Pulse Resp BP Pulse Ox 04/21/18 15:42 98.0 F 74 15 143/83 99 04/21/18 06:25 98.0 F 78 15 120/92 92 04/21/18 04:00 98.4 F 68 17 116/73 92 04/20/18 20:00 98.3 F 83 17 106/71 93 Intake and Output 04/21/18 04/21/18 04/21/18 07:59 15:59 23:59 Intake Total 480 / 480 940 / 940 Output Total 400 / 400 0 / 0 900 / 900 Balance 80 / 80 940 / 940 -900 / -900 Intake: IV Fluids 20 / 20 Merrem 1,000 MG In Water for 20 / 20 inj. (sterile) 10 ML @ 120 mls/ hr IVP Q8HR [facility] Rx#:[id number] Oral 480 / 480 920 / 920 Output: Urine 400 / 400 0 / 0 900 / 900 Other: Meal Lunch Percent of Meal Consumed 100% Weight 94.4 kg Patient Weight 04/21/18 23:59 Weight 94.4 kg Oncology: Obj Data - Labs CBC & Chem 7: 04/21/18 03:59 04/21/18 03:59 Labs: Laboratory Results - last 24 hr 04/21/18 04/21/18 03:59 03:59 WBC 13.0 H RBC 3.51 L Hgb 11.2 L Hct 33.5 L MCV 95.4 MCH 31.9 MCHC 33.4 RDW 14.0 Plt Count 299 MPV 10.3 Seg Neutrophils % 32.0 Band Neutrophils % 30.0 H Lymphocytes % 16.0 Monocytes % 18.0 Metamyelocytes % 4.0 H Neutrophils # 8.1 Lymphocytes # 2.1 Monocytes # 2.3 H Nucleated RBCs/100 WBC 0.5 H Platelet Estimate Normal Sodium 134 L Potassium 4.0 Chloride 103 Carbon Dioxide 24 BUN 21 Creatinine 0.45 L Est GFR ( Amer) > 60 Est GFR (Non-Af Amer) > 60 BUN/Creatinine Ratio 47 H Glucose 89 Calculated Osmolality 280 Calcium 9.5 - ABG Interpretation ABG results: PT/INR, D-dimer PT 13.0 Seconds (9.4-12.1) H 04/10/18 10:09
--- NOTE | 2018-04-21 13:46 | Internal Med Progress Note ---
<Danilo Esquivel S - Last Filed: 04/21/18 13:42> Hospitalist Progress Note - Encounter Date of Encounter: 04/21/18 Time of Encounter: 13:42 - Subjective Interval History: Pt is seen at the bedside. She is hospital day 14. The pt was admitted for chronic venous stasis ulcer on the right leg for the last year and was being treated with bactrim and cefepime, (+) for psuedomonas. She began to have stroke like symptoms at 730am on 04/10 , including slurred speech and facial droop. Her s/s resolved at [facility] -CT head negative, MRI brain negative -Carotid duplex ultrasound showed B/L carotid nonstenotic plaques She had a genralized rash thought to be due to bactrim. Pt developed neutropenia. -abx were switched to meropenem and cefepime -it has continued to improve -derm saw and did a punch bx to rule out leukemia cutis, awaiting bx report -autoantibody labs normal, anti-Alejandrina-1 was WNL On 04/17 the pt had DVT in right subclavian/axillary/brachial and R UE basilic vein acute thrombosis. L UE was normal. The pt was started on rivaroxaban -IV infiltrated 04/17 during the nighttime -rivaroxaban was filled as per pharmacy and is ready to be picked up at [facility] pharmacy. Awaiting ID recommendations, will update here after speaking with Dr. Gates -wound vac to be changed / Currently the pt is stable for discharge. She has no chest pain, sob, n/v/d, numbness or tingling, dizziness, slurred speech, forgetfulness. The pt got a walker for use at home and feels stable with it. -pt plan to be discharged tomorrow after social work finishes finalizing everything Fluids - 0.9% NS Electrolytes - sodium 134 Nutrition - regular diet DVT prophylaxis - on rivaroxaban GI prophylaxis - not indicated - Exam Vitals: Temp Pulse Resp BP Pulse Ox 98.0 F 78 15 120/92 92 04/21/18 06:25 04/21/18 06:25 04/21/18 06:25 04/21/18 06:25 04/21/18 06:25 Exam: Gen: no acute distress, awake, alert HEENT: moist mucus membranes Heart: RRR, no murmurs Lungs: crackles in bases, no wheezes Abdomen: soft, non-tender Extremities: wound vac and dressing on left LE, no swelling or tenderness in R upper extremity Vascular: pulses +2 in all extremities Skin: Rash improving, still some rash on the back Neuro: no facial droop, no focal deficits, sensation intact in all extremities - Assessment and Plan (1) Venous ulcer of leg Current Visit: Yes Status: Acute Assessment and Plan: Left lower extremity on outer and inner aspect -(+) for psuedomonas -on meropenem for a total of six weeks as per ID CT showed subtle periosteal reaction, will likely receive Abx for 4-6 weeks ESR 44, CRP 39 Plan: -Dr Palma to consult IR for new midline placement for meropenem -continue meropenem as per ID -Monitor renal function, BMP in AM -plan for discharge tomororw, SW to set up IV abx set up for pt (2) TIA (transient ischemic attack) Current Visit: Yes Status: Resolved Assessment and Plan: Pt began to have stroke like symptoms at 730am on day of admission including slurred speech and facial droop. Her s/s resolved at [facility] 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 Today WBC count is 13 -ANC = 8060 (normal) today Plan: -CBC in the AM (9) HTN (hypertension) Current Visit: No Status: Chronic Assessment and Plan: BP 120/92 -adequate control -continue losartan/HCTZ 1 pill daily (10) Deep venous thrombosis of right upper extremity Current Visit: Yes Status: Resolved Assessment and Plan: On 04/17 the pt had DVT in right subclavian/axillary/brachial and R UE basilic vein acute thrombosis. L UE was normal. The pt was started on rivaroxaban -IV infiltrated 04/17 during the nighttime -will discharge on rivaroxaban, pharmacy set up and prescription is ready for pickup at [facility] pharmcy -follow up with PCP for continuation of anticoagulation DVT Prophylaxis: On rivaroxaban - Time Spent with Patient Total time spent is greater than 50% in coordination of care (as documented) at patient's floor/unit and/or counseling patient: less than 15 minutes Plan of Care Discussed with: patient Internal Medicine: Result - Labs CBC & Chem 7: 04/21/18 03:59 04/21/18 03:59 Labs: Short CBC 04/21/18 Range/Units 03:59 WBC 13.0 H (4.3-11.1) K/mcL Hgb 11.2 L (11.5-15.4) g/dL Hct 33.5 L (35.3-44.9) % Plt Count 299 (140-400) K/mcL Neutrophils # 8.1 (1.6-8.9) K/mcL BMP 04/21/18 03:59 Sodium 134 L Potassium 4.0 Chloride 103 Carbon Dioxide 24 BUN 21 Creatinine 0.45 L Glucose 89 Calcium 9.5 - ABG Interpretation ABG results: PT/INR, D-dimer PT 13.0 Seconds (9.4-12.1) H 04/10/18 10:09 Consult Discharge Plan - Plan Referrals: Donald Anderson DO [Partnered Physician] - 05/07/18 1:00 pm Elaina Andrade CNP [Primary Care Provider] - 04/30/18 12:30 pm Yulia Gates MD [Partnered Physician] - 04/30/18 2:40 pm Prescriptions: Hydrocortisone 1% CREAM [Cortaid] 1 appl TP BID #1 bottle predniSONE [PredniSONE] 10 mg PO DAILY 3 Days #3 tablet Rivaroxaban [Xarelto] 1 dose PO AD 30 Days pack Tramadol HCl [Ultram] 50 mg PO TID PRN 7 Days #21 tab PRN Reason: chronic pain <Kaila Rodrigez - Last Filed: 04/21/18 16:03> Hospitalist Progress Note - Encounter Date of Encounter: 04/21/18 - Exam Vitals: Temp Pulse Resp BP Pulse Ox 98.0 F 74 15 143/83 99 04/21/18 15:42 04/21/18 15:42 04/21/18 15:42 04/21/18 15:42 04/21/18 15:42 - Assessment and Plan (1) Venous ulcer of leg Current Visit: Yes Status: Acute (2) Hyponatremia Current Visit: Yes Status: Resolved (3) TIA (transient ischemic attack) Current Visit: Yes Status: Resolved (4) PETR (acute kidney injury) Current Visit: Yes Status: Resolved (5) HTN (hypertension) Current Visit: No Status: Chronic (6) Rash Current Visit: Yes Status: Resolved (7) Hypokalemia Current Visit: Yes Status: Resolved (8) Leukopenia Current Visit: Yes Status: Resolved (9) Interstitial lung disease Current Visit: Yes Status: Chronic (10) Deep venous thrombosis of right upper extremity Current Visit: Yes Status: Resolved - Time Spent with Patient Total time spent is greater than 50% in coordination of care (as documented) at patient's floor/unit and/or counseling patient: Internal Medicine: Result - Labs CBC & Chem 7: 04/21/18 03:59 04/21/18 03:59 Labs: Short CBC 04/21/18 Range/Units 03:59 WBC 13.0 H (4.3-11.1) K/mcL Hgb 11.2 L (11.5-15.4) g/dL Hct 33.5 L (35.3-44.9) % Plt Count 299 (140-400) K/mcL Neutrophils # 8.1 (1.6-8.9) K/mcL BMP 04/21/18 03:59 Sodium 134 L Potassium 4.0 Chloride 103 Carbon Dioxide 24 BUN 21 Creatinine 0.45 L Glucose 89 Calcium 9.5 - ABG Interpretation ABG results: PT/INR, D-dimer PT 13.0 Seconds (9.4-12.1) H 04/10/18 10:09 - Attending Attestation I examined this patient and my medical decision-making was reviewed with the Resident Physician Dr. Esquivel. I agree with the documented findings, disposition and treatment plan as described except to the extent set forth below. Ms. Crespo is 68 year old female with PMHx of venous stasis ulcer, HTN, and HLD admitted to [facility] for TIA. She does have chronic LLE venous stasis ulcer for which she had wound vac and on chronic abx therapy as an out pt with Bactrim and Cefepime. Pt did develop diffuse papular rash later. Now she is off the Bactrim and Cefepime, and ID placed her on Meropenem. Her rash improved now. She does have neutropenia , which might be due to sepsis and Abx induced. No events over night. No cough / SOB Gen: A, A, O x 3 Ext: Improved swelling and erythema in Rt Arm a/p 1. Sepsis with Pneumonia and Left lower ext venous stasis ulcer 2. Pneumonia - bacterial cont IV abx Meropenem 3. Acute neutropenia resolved bone marrow biopsy path report - P Heme Onc on board 4. Diffuse maculo papular rash mostly Abx induced improved cont tapering steroids skin biopsy - P 5. Rt UE DVT On Xarelto 6. Left tibial osteomyelitis / Chronic venous stasis ulcer Wound cx grew pseudomonas cont Meropenem 10 more days ( total 6 weeks ) f/u with ID on 04/29/18 placed Left forearm midline today Medically stable to d/c.. Waiting on home IV abx infusion set up <Danilo Esquivel S - Last Filed: 04/21/18 13:42> (1) Venous ulcer of leg Qualifiers: Laterality: left Qualified Code(s): I83.029 - Varicose veins of left lower extremity with ulcer of unspecified site; L97.929 - Non-pressure chronic ulcer of unspecified part of left lower leg with unspecified severity; L97.929 - Non- pressure chronic ulcer of unspecified part of left lower leg with unspecified severity; L97.929 - Non-pressure chronic ulcer of unspecified part of left lower leg with unspecified severity; L97.929 - Non-pressure chronic ulcer of unspecified part of left lower leg with unspecified severity (7) Leukopenia Qualifiers: Leukopenia type: neutropenia Neutropenia type: unspecified Qualified Code(s) : D70.9 - Neutropenia, unspecified (9) HTN (hypertension) Qualifiers: Hypertension type: essential hypertension Qualified Code(s): I10 - Essential (primary) hypertension (10) Deep venous thrombosis of right upper extremity Qualifiers: Affected thrombotic vein of extremity: axillary Chronicity: acute Qualified Code(s): I82.A11 - Acute embolism and thrombosis of right axillary vein <Kaila Rodrigez - Last Filed: 04/21/18 16:03> (1) Venous ulcer of leg Qualifiers: Laterality: left Qualified Code(s): I83.029 - Varicose veins of left lower extremity with ulcer of unspecified site; L97.929 - Non-pressure chronic ulcer of unspecified part of left lower leg with unspecified severity; L97.929 - Non- pressure chronic ulcer of unspecified part of left lower leg with unspecified severity; L97.929 - Non-pressure chronic ulcer of unspecified part of left lower leg with unspecified severity; L97.929 - Non-pressure chronic ulcer of unspecified part of left lower leg with unspecified severity (5) HTN (hypertension) Qualifiers: Hypertension type: essential hypertension Qualified Code(s): I10 - Essential (primary) hypertension (8) Leukopenia Qualifiers: Leukopenia type: neutropenia Neutropenia type: unspecified Qualified Code(s) : D70.9 - Neutropenia, unspecified (10) Deep venous thrombosis of right upper extremity Qualifiers: Affected thrombotic vein of extremity: axillary Chronicity: acute Qualified Code(s): I82.A11 - Acute embolism and thrombosis of right axillary vein
--- NOTE | 2018-04-21 13:57 | Infectious Disease Progress No ---
Date of Encounter: 04/21/18 Time of Encounter: 11:30 - Assessment and Plan (1) Fever Current Visit: Yes Status: Resolved Resolved. Etiology unclear: infectious vs. inflammatory vs. rheumatologic vs. other. Clinically, the patient appears to have improved. Continue to monitor closely. Qualifiers: Fever type: unspecified Qualified Code(s): R50.9 - Fever, unspecified (2) Leukopenia Current Visit: Yes Status: Resolved Etiology unclear: sepsis vs. medication vs. other. WBC and ANC improved after Neupogen. ANC 8090 today. Hem/Onc consulted. Appreciate recommendations. Status post BBX 04/17/18. Showed granulocytic hypoplasia and left shift, most likely related to medication (Bactrim). No evidence of malignancy. Qualifiers: Leukopenia type: neutropenia Neutropenia type: unspecified Qualified Code (s): D70.9 - Neutropenia, unspecified (3) Venous ulcer of leg Current Visit: Yes Status: Acute Location: LLE. Etiology: Venous stasis ulcer. Previous wound culture positive for PSEA. Started on Cefepime 03/19/18 after the patient developed a rash while on Bactrim. CT of the LLE showed a subtle periosteal reaction to the tibia adjacent to the soft tissue ulceration. ESR 44, CRP 74. Dressing changes per the wound care clinic recommendations. Continue Meropenem 1 gram IV Q8H. Duration of treatment depends on the clinical picture, but likely 6 weeks. Monitor renal function and dose-adjust antibiotics. Consult VAT for midline/powerglide placement. Will need weekly CBC, BUN/Cr, ESR, and CRP. Follow up with ID 04/30/18 at 1440. Qualifiers: Laterality: left Qualified Code(s): I83.029 - Varicose veins of left lower extremity with ulcer of unspecified site; L97.929 - Non-pressure chronic ulcer of unspecified part of left lower leg with unspecified severity; L97.929 - Non- pressure chronic ulcer of unspecified part of left lower leg with unspecified severity; L97.929 - Non-pressure chronic ulcer of unspecified part of left lower leg with unspecified severity; L97.929 - Non-pressure chronic ulcer of unspecified part of left lower leg with unspecified severity (4) PETR (acute kidney injury) Current Visit: Yes Status: Resolved Resolved. (5) Allergy to antibiotic Current Visit: Yes Status: Acute Patient developed rash two weeks ago, presumptively to the Bactrim she was on previously. Patient reports that the rash is improved. Continue supportive care. Dermatology consulted and punch biopsy performed. Await results. (6) Facial droop Current Visit: Yes Status: Resolved Likely secondary to TIA. Resolved (7) Hyponatremia Current Visit: Yes Status: Resolved Resolved. Management per the primary team. (8) Rash Current Visit: Yes Status: Resolved Etiology unclear: antibiotic reaction vs. other. Status post biopsy. Results pending. Rash has started to improve. Currently on Claritin and Pepcid. (9) TIA (transient ischemic attack) Current Visit: Yes Status: Resolved (10) HTN (hypertension) Current Visit: No Status: Chronic Qualifiers: Hypertension type: essential hypertension Qualified Code(s): I10 - Essential (primary) hypertension (11) Interstitial lung disease Current Visit: Yes Status: Chronic CT chest showed findings consistent with interstitial lung disease and fibrosis. Etiology unclear. Pulmonary consult noted and appreciated. Fungitell and Histo antigens are negative. Rheumatology consulted and following. Appreciate recommendations. (12) Deep venous thrombosis of right upper extremity Current Visit: Yes Status: Resolved STatus post RUE DVT study that showed DVT in the right upper subclavian, axillary, and brachial veins as well as SVT in the right basilic vein. Likely secondary to previous midline. Anticoagulation per the primary team. Qualifiers: Affected thrombotic vein of extremity: axillary Chronicity: acute Qualified Code(s): I82.A11 - Acute embolism and thrombosis of right axillary vein - Subjective Interval history: Patient seen and examined. No acute events noted overnight. Patient states that overall she feels okay today. Denies fevers, chills, or rigors. Denies chest pain or shortness of breath. States cough is better. Denies nausea, vomiting, or diarrhea. . Reports relatively poor appetite, but states she is getting protein supplements and Ensure with her meals. Denies abdominal pain or urinary complaints. Complains of pain at the site of the ulcer. Reports her skin rash is getting better. She denies oral thrush. Reports RUE pain. Was diagnosed with SVT and DVT to the RUE. Infect Dis PN-Objective Data - Labs CBC & Chem 7: 04/22/18 04:20 04/22/18 04:20 Labs: Laboratory Results - last 24 hr 04/21/18 04/21/18 03:59 03:59 WBC 13.0 H RBC 3.51 L Hgb 11.2 L Hct 33.5 L MCV 95.4 MCH 31.9 MCHC 33.4 RDW 14.0 Plt Count 299 MPV 10.3 Seg Neutrophils % 32.0 Band Neutrophils % 30.0 H Lymphocytes % 16.0 Monocytes % 18.0 Metamyelocytes % 4.0 H Neutrophils # 8.1 Lymphocytes # 2.1 Monocytes # 2.3 H Nucleated RBCs/100 WBC 0.5 H Platelet Estimate Normal Sodium 134 L Potassium 4.0 Chloride 103 Carbon Dioxide 24 BUN 21 Creatinine 0.45 L Est GFR ( Amer) > 60 Est GFR (Non-Af Amer) > 60 BUN/Creatinine Ratio 47 H Glucose 89 Calculated Osmolality 280 Calcium 9.5 Cultures: Cultures 04/11/18 17:20 Blood Culture - Final Peripheral Venipuncture No growth. Final report. 04/11/18 17:20 Blood Culture - Final Peripheral Venipuncture No growth. Final report. Serology 04/16/18 04/16/18 04/15/18 Range/Units 14:45 07:05 11:57 Urine Creatinine 49 mg/dL Protein/Creatinin Ratio 1.10 H (0.00-0.20) mg/mg Urine Total Protein 54 H (1-14) mg/dL Chlamy pneumoniae PCR (Not Detect) Adenovirus (PCR) (Not Detect) B. pertussis DNA (PCR) (Not Detect) B.parapertussis DNA PCR (Not Detect) Coronavirus OC43 (PCR) (Not Detect) Coronavirus HKU1 (PCR) (Not Detect) Coronavirus 229E (PCR) (Not Detect) Coronavirus NL63 (PCR) (Not Detect) U Histopl Galactoman Ag NOT DETECTED ng/mL U Histopl Galact Ant Int NOT DETECTED (Not Detected) Human Metapneumovir PCR (Not Detect) Influenza A (H1) PCR (Not Detect) Influ A (H1N1/09) PCR (Not Detect) Influenza A (H3) PCR (Not Detect) Influenza A Untype (PCR) (Not Detect) Influenza Type B (PCR) (Not Detect) Mycoplasma pneumon IgG 0.19 H (<=0.09) U/L Mycoplasma pneumon IgM 0.46 (<=0.76) U/L M.pneumoniae DNA (PCR) (Not Detect) Parainfluenza 1 (PCR) (Not Detect) Parainfluenza 2 (PCR) (Not Detect) Parainfluenza 3 (PCR) (Not Detect) Parainfluenza 4 (PCR) (Not Detect) RSV (PCR) (Not Detect) Entero/Rhino (PCR) (Not Detect) Beta-(1,3)-D-Glucan pg/mL B-(1,3)-D-Glucan Intrp (Negative) 04/15/18 04/14/18 Range/Units 11:54 11:42 Urine Creatinine mg/dL Protein/Creatinin Ratio (0.00-0.20) mg/mg Urine Total Protein (1-14) mg/dL Chlamy pneumoniae PCR Not Detected (Not Detect) Adenovirus (PCR) Not Detected (Not Detect) B. pertussis DNA (PCR) Not Detected (Not Detect) B.parapertussis DNA PCR Not Detected (Not Detect) Coronavirus OC43 (PCR) Not Detected (Not Detect) Coronavirus HKU1 (PCR) Not Detected (Not Detect) Coronavirus 229E (PCR) Not Detected (Not Detect) Coronavirus NL63 (PCR) Not Detected (Not Detect) U Histopl Galactoman Ag ng/mL U Histopl Galact Ant Int (Not Detected) Human Metapneumovir PCR Not Detected (Not Detect) Influenza A (H1) PCR Not Detected (Not Detect) Influ A (H1N1/09) PCR Not Detected (Not Detect) Influenza A (H3) PCR Not Detected (Not Detect) Influenza A Untype (PCR) Not Detected (Not Detect) Influenza Type B (PCR) Not Detected (Not Detect) Mycoplasma pneumon IgG (<=0.09) U/L Mycoplasma pneumon IgM (<=0.76) U/L M.pneumoniae DNA (PCR) Not Detected (Not Detect) Parainfluenza 1 (PCR) Not Detected (Not Detect) Parainfluenza 2 (PCR) Not Detected (Not Detect) Parainfluenza 3 (PCR) Not Detected (Not Detect) Parainfluenza 4 (PCR) Not Detected (Not Detect) RSV (PCR) Not Detected (Not Detect) Entero/Rhino (PCR) Not Detected (Not Detect) Beta-(1,3)-D-Glucan 35 pg/mL B-(1,3)-D-Glucan Intrp NEGATIVE (Negative) Exam - Constitutional Vitals: Temp Pulse Resp BP Pulse Ox 98.0 F 78 15 120/92 92 04/21/18 06:25 04/21/18 06:25 04/21/18 06:25 04/21/18 06:25 04/21/18 06:25 General appearance: average body habitus, cooperative, no acute distress - Head Head exam: Present: atraumatic, normal inspection, normocephalic - Eye Eye exam: Present: EOMI, normal appearance, PERRL Pupils: Present: normal accommodation - ENT ENT exam: Present: mucous membranes moist - Neck Neck exam: Present: normal inspection - Respiratory Respiratory exam: Present: CTAB. Absent: rales, respiratory distress, rhonchi, wheezes - Cardiovascular Cardiovascular exam: Present: RRR, +S1, +S2 - GI/Abdominal GI/Abdominal exam: Present: normal bowel sounds, soft. Absent: distended, tenderness - Extremities Exam Extremities exam: Present: tenderness (RUE). Absent: joint swelling, pedal edema Additional comments: LLE wound VAC dressing noted with 125mm Hg continuous suction without evidence of leak. No drainage noted in the canister. Compression dressing noted to the LLE. - Neurological Exam Neurological exam: Present: alert, oriented X3, no focal deficits - Psychiatric Psychiatric exam: Present: normal affect, normal mood - Skin Skin exam: Present: dry, intact, normal color, warm Consult Discharge Plan - Plan Instructions: Prednisone (By mouth), Hydrocortisone (On the skin), Tramadol ( By mouth), Rivaroxaban (By mouth), Transient Ischemic Attack (DC), Hyponatremia (DC), Peripheral Vascular Disorders (DC), Chronic Hypertension (DC) Referrals: Catracho Galarza MD [Partnered Physician] - 04/30/18 1:00 pm Donald Anderson DO [Partnered Physician] - 05/07/18 1:00 pm Elaina Andrade CNP [Primary Care Provider] - 04/30/18 12:30 pm Yulia Gates MD [Partnered Physician] - 04/30/18 2:40 pm Prescriptions: Hydrocortisone 1% CREAM [Cortaid] 1 appl TP BID #1 bottle predniSONE [PredniSONE] 10 mg PO DAILY 3 Days #3 tablet Rivaroxaban [Xarelto] 1 dose PO AD 30 Days pack Tramadol HCl [Ultram] 50 mg PO TID PRN 7 Days #21 tab PRN Reason: chronic pain - Attending Attestation I examined this patient and my medical decision-making was reviewed with Arelis Godwin CNP. I agree with the documented findings, disposition and treatment plan as described except to the extent set forth below.
[2018-04-22] MEDS: Meropenem 1,000 MG in Water for inj. (sterile) 20 ML 10 ML IVP SCH ×2 (01:04→08:03)
[2018-04-22 05:11] LABS: Basophils % 0.2 %; Hematocrit 34.1 % (35.3-44.9); Hemoglobin 11.4 g/dL (11.5-15.4); Immature Granulocytes % 16.7 % (0-4); Lymphocytes # 2.3 K/mcL (0.6-4.6); Mean Corpuscular HGB Conc 33.4 g/dL (31.6-35.5); Mean Corpuscular Hemoglobin 31.8 pg (28.0-33.3); Mean Platelet Volume 10.3 fL (9.4-12.4); Monocytes # 1.3 K/mcL (0.0-1.3); Nucleated Red Blood Cells 0.2 /100 WBC (0); Platelet Count 320 K/mcL (140-400); Red Blood Count 3.59 M/mcL (3.82-4.97)
[2018-04-22 05:24] LABS: Alanine Aminotransferase 28 Units/L (7-52); Albumin 3.2 g/dL (3.5-5.7); Alkaline Phosphatase 73 Units/L (34-104); Aspartate Amino Transferase 16 Units/L (13-39); BUN/Creatinine Ratio 35 (6-26); Bilirubin,Total 0.4 mg/dL (0.3-1.0); Blood Urea Nitrogen 23 mg/dL (8-23); Calcium 9.5 mg/dL (8.6-10.3); Carbon Dioxide 28 mEq/L (23-29); Chloride 102 mEq/L (98-107); Globulin 3.2 g/dL (2.4-3.5); Glucose 86 mg/dL (70-105); Osmolality,Calculated 283 (280-300); Sodium 135 mEq/L (136-145); Total Protein 6.4 g/dL (6.4-8.9); eGFR For Non-African Americans > 60 (> 60)
[2018-04-22 06:24] LABS: Platelet Estimate Normal (Normal)
[2018-04-22 06:27] LABS: Neutrophils # 4.6 K/mcL (1.6-8.9)
[2018-04-22 07:39] VITALS: BP 117/67
[2018-04-22] MEDS: Loratadine 10 MG TABLET PO SCH (08:03)
[2018-04-22] MEDS: Famotidine 20 MG TABLET PO SCH (08:03)
[2018-04-22] MEDS: *HR* Rivaroxaban 15 MG TABLET PO SCH (08:03)
[2018-04-22] MEDS: predniSONE 20 MG TABLET PO SCH (08:04)
--- NOTE | 2018-04-22 08:05 | Internal Med Progress Note ---
<Danilo Esquivel S - Last Filed: 04/22/18 13:23> Hospitalist Progress Note - Encounter Date of Encounter: 04/22/18 Time of Encounter: 06:30 - Subjective Interval History: Pt is seen at the bedside. She is hospital day 12. The pt was admitted for chronic venous stasis ulcer on the right leg for the last year and was being treated with bactrim and cefepime, (+) for psuedomonas. She began to have stroke like symptoms at 730am on 04/10 , including slurred speech and facial droop. Her s/s resolved at [facility]. -CT head negative, MRI brain negative -Carotid duplex ultrasound showed B/L carotid nonstenotic plaques She had a genralized rash thought to be due to bactrim. Pt developed neutropenia. -abx were switched to meropenem and cefepime -it has continued to improve -derm saw and did a punch bx to rule out leukemia cutis, awaiting bx report -autoantibody labs normal, anti-Alejandrina-1 was WNL On 04/17 the pt had DVT in right subclavian/axillary/brachial and R UE basilic vein acute thrombosis. L UE was normal. The pt was started on rivaroxaban -IV infiltrated 04/17 during the nighttime -rivaroxaban was filled as per pharmacy and is ready to be picked up at [facility] pharmacy. Awaiting ID recommendations, will update here after speaking with Dr. Gates -wound vac to be changed / Currently the pt is stable for discharge. She has no chest pain, sob, n/v/d, numbness or tingling, dizziness, slurred speech, forgetfulness. The pt got a walker for use at home and feels stable with it. -pt plan to be discharged today. Conditional d/c pending Dr. Martinez seeing the pt. - Exam Vitals: Temp Pulse Resp BP Pulse Ox 97.9 F 71 16 117/67 96 04/22/18 07:36 04/22/18 07:36 04/22/18 07:36 04/22/18 07:36 04/22/18 07:36 Exam: Gen: no acute distress, awake, alert HEENT: moist mucus membranes Heart: RRR, no murmurs Lungs: crackles in bases, no wheezes Abdomen: soft, non-tender Extremities: wound vac and dressing on left LE, no swelling or tenderness in R upper extremity Vascular: pulses +2 in all extremities Skin: Rash improving, still some rash on the back Neuro: no facial droop, no focal deficits, sensation intact in all extremities - Assessment and Plan (1) Venous ulcer of leg Current Visit: Yes Status: Acute Assessment and Plan: Left lower extremity on outer and inner aspect -(+) for psuedomonas -on meropenem for a total of six weeks as per ID CT showed subtle periosteal reaction, will likely receive Abx for 4-6 weeks ESR 44, CRP 39 Plan: -New midline is in place, pt to have tx with meropenem for 6wks as per ID -continue meropenem as per ID -weekly kidney fxn , cbc, ESR and CRP testing as per ID -pt to follow up with ID on 04/30/18 -plan for discharge today, SW to set up IV abx set up for pt (2) TIA (transient ischemic attack) Current Visit: Yes Status: Resolved Assessment and Plan: Pt began to have stroke like symptoms at 730am on day of admission including slurred speech and facial droop. Her s/s resolved at [facility]. -CT head negative, MRI brain negative -Carotid duplex ultrasound showed B/L carotid nonstenotic plaques Plan: -most likely secondary due to carbapenem useage -no further workup indicated (3) PETR (acute kidney injury) Current Visit: Yes Status: Resolved Assessment and Plan: Resolved BUN 23 Creatinine 0.65 (4) HTN (hypertension) Current Visit: No Status: Chronic Assessment and Plan: BP 117/67 -adequate control -continue losartan/HCTZ 1 pill daily (5) Rash Current Visit: Yes Status: Resolved Assessment and Plan: Improving -most likely secondary to recent use of abx Plan: -continue prednisone for 3 days, dermatology ok with this -punch bx pending -pt to follow up with dermatollogy in the office (6) Leukopenia Current Visit: Yes Status: Resolved Assessment and Plan: Pt developed neutropenia -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 Today WBC count is 9.6 -ANC = 4416 (normal) today (7) Interstitial lung disease Current Visit: Yes Status: Chronic Assessment and Plan: CT showed interstitial lung disease Concern for rheumatologic/vasculitic source with recent use of bactrim, rash, and joint swelling Ordered AUGUSTINE, BMP, CBC, Cryoglobulin, Histone Ab, lupus anticoagulant, histoplasma galactomannan, fungitell Rheumatology consulted, ordered CCP, complement 3 + 4, ANCA, and SSA, will follow up outpatient Mycoplasma pneumoniae IgM level was not clinically significant, but IgG was positive Pulmonology signed off Plan: -Recommend follow up in 6-8 weeks for PFTs and HRCT, will need repeat CT -outpatient pulmonology workup (8) Deep venous thrombosis of right upper extremity Current Visit: Yes Status: Resolved Assessment and Plan: On 04/17 the pt had DVT in right subclavian/axillary/brachial and R UE basilic vein acute thrombosis. L UE was normal. The pt was started on rivaroxaban -IV infiltrated 04/17 during the nighttime -will discharge on rivaroxaban, pharmacy set up and prescription is ready for pickup at [facility] pharmcy -follow up with heme onc for continuation of anticoagulation Plan: -Currently on Xarelto 15 mg BID x 21 days then to 20mg for minimum 3 mos, as per heme onc -follow up with heme onc as outpatient basis -Xarelto dosed as per pharmacy, ready for shrimp picker at [facility] pharmacy DVT Prophylaxis: On xarelto - Time Spent with Patient Total time spent is greater than 50% in coordination of care (as documented) at patient's floor/unit and/or counseling patient: less than 15 minutes Plan of Care Discussed with: patient Internal Medicine: Result - Labs CBC & Chem 7: 04/22/18 04:20 04/22/18 04:20 Labs: Short CBC 04/22/18 Range/Units 04:20 WBC 9.6 (4.3-11.1) K/mcL Hgb 11.4 L (11.5-15.4) g/dL Hct 34.1 L (35.3-44.9) % Plt Count 320 (140-400) K/mcL Neutrophils # 4.6 (1.6-8.9) K/mcL BMP 04/22/18 04:20 Sodium 135 L Potassium 4.0 Chloride 102 Carbon Dioxide 28 BUN 23 Creatinine 0.65 Glucose 86 Calcium 9.5 Liver Function 04/22/18 Range/Units 04:20 Total Bilirubin 0.4 (0.3-1.0) mg/dL AST 16 (13-39) Units/L ALT 28 (7-52) Units/L Alkaline Phosphatase 73 (34-104) Units/L Albumin 3.2 L (3.5-5.7) g/dL - ABG Interpretation ABG results: PT/INR, D-dimer PT 13.0 Seconds (9.4-12.1) H 04/10/18 10:09 Consult Discharge Plan - Plan Instructions: Prednisone (By mouth), Hydrocortisone (On the skin), Tramadol ( By mouth), Rivaroxaban (By mouth), Transient Ischemic Attack (DC), Hyponatremia (DC), Peripheral Vascular Disorders (DC), Chronic Hypertension (DC) Additional Instructions: Please go get blood drawn on 04/28/18. Prescription given to you. Take prescription with you to lab. Midline to left upper arm stays in place for IV antibiotics at home. [facility] to maintain this and give antibiotics through. Wound Vac to left lower extremity. Wound Clinic to change today (04/22/18) and you have an appt (04/24/18) @ 10:30am at wound clinic to change this also. Referrals: Catracho Galarza MD [Partnered Physician] - 04/30/18 1:00 pm Donald Anderson DO [Partnered Physician] - 05/07/18 1:00 pm Phi Calles MD [Partnered Physician] - (appt.requested ) Elaina Andrade, ACTUARIAL CONSULTANT [Primary Care Provider] - 04/30/18 12:30 pm Yulia Gates MD [Partnered Physician] - 04/30/18 2:40 pm Prescriptions: Aspirin 81 mg PO DAILY 30 Days #30 tab.chew Hydrocortisone 1% CREAM [Cortaid] 1 appl TP BID #1 bottle predniSONE [PredniSONE] 10 mg PO DAILY 3 Days #3 tablet Rivaroxaban [Xarelto] 1 dose PO AD 30 Days pack Tramadol HCl [Ultram] 50 mg PO TID PRN 7 Days #21 tab PRN Reason: chronic pain <Joey Martinez - Last Filed: 04/22/18 13:58> Hospitalist Progress Note - Encounter Date of Encounter: 04/22/18 - Exam Vitals: Temp Pulse Resp BP Pulse Ox 97.9 F 71 16 117/67 96 04/22/18 07:36 04/22/18 07:36 04/22/18 07:36 04/22/18 07:36 04/22/18 07:36 - Assessment and Plan (1) Venous ulcer of leg Current Visit: Yes Status: Acute (2) TIA (transient ischemic attack) Current Visit: Yes Status: Resolved (3) PETR (acute kidney injury) Current Visit: Yes Status: Resolved (4) HTN (hypertension) Current Visit: No Status: Chronic (5) Rash Current Visit: Yes Status: Resolved (6) Leukopenia Current Visit: Yes Status: Resolved (7) Interstitial lung disease Current Visit: Yes Status: Chronic (8) Deep venous thrombosis of right upper extremity Current Visit: Yes Status: Resolved - Time Spent with Patient Total time spent is greater than 50% in coordination of care (as documented) at patient's floor/unit and/or counseling patient: Internal Medicine: Result - Labs CBC & Chem 7: 04/22/18 04:20 04/22/18 04:20 Labs: Short CBC 04/22/18 Range/Units 04:20 WBC 9.6 (4.3-11.1) K/mcL Hgb 11.4 L (11.5-15.4) g/dL Hct 34.1 L (35.3-44.9) % Plt Count 320 (140-400) K/mcL Neutrophils # 4.6 (1.6-8.9) K/mcL BMP 04/22/18 04:20 Sodium 135 L Potassium 4.0 Chloride 102 Carbon Dioxide 28 BUN 23 Creatinine 0.65 Glucose 86 Calcium 9.5 Liver Function 04/22/18 Range/Units 04:20 Total Bilirubin 0.4 (0.3-1.0) mg/dL AST 16 (13-39) Units/L ALT 28 (7-52) Units/L Alkaline Phosphatase 73 (34-104) Units/L Albumin 3.2 L (3.5-5.7) g/dL - ABG Interpretation ABG results: PT/INR, D-dimer PT 13.0 Seconds (9.4-12.1) H 04/10/18 10:09 - Attending Attestation I have seen and examined this pt independently. I have discussed with resident physician Dr Esquivel regarding the management plan. Agree with the documentation. Pt will d/c home today. Add ASA 81mg po daily for TIA. Cont xarelto for DVT on Rt arm. F/U with wound care for wound and con abx per ID recommendation. Will update discharge summary. <Danilo Esquivel - Last Filed: 04/22/18 13:23> (1) Venous ulcer of leg Qualifiers: Laterality: left Qualified Code(s): I83.029 - Varicose veins of left lower extremity with ulcer of unspecified site; L97.929 - Non-pressure chronic ulcer of unspecified part of left lower leg with unspecified severity; L97.929 - Non- pressure chronic ulcer of unspecified part of left lower leg with unspecified severity; L97.929 - Non-pressure chronic ulcer of unspecified part of left lower leg with unspecified severity; L97.929 - Non-pressure chronic ulcer of unspecified part of left lower leg with unspecified severity (4) HTN (hypertension) Qualifiers: Hypertension type: essential hypertension Qualified Code(s): I10 - Essential (primary) hypertension (6) Leukopenia Qualifiers: Leukopenia type: neutropenia Neutropenia type: unspecified Qualified Code(s) : D70.9 - Neutropenia, unspecified (8) Deep venous thrombosis of right upper extremity Qualifiers: Affected thrombotic vein of extremity: axillary Chronicity: acute Qualified Code(s): I82.A11 - Acute embolism and thrombosis of right axillary vein <Joey Martinez - Last Filed: 04/22/18 13:58> (1) Venous ulcer of leg Qualifiers: Laterality: left Qualified Code(s): I83.029 - Varicose veins of left lower extremity with ulcer of unspecified site; L97.929 - Non-pressure chronic ulcer of unspecified part of left lower leg with unspecified severity; L97.929 - Non- pressure chronic ulcer of unspecified part of left lower leg with unspecified severity; L97.929 - Non-pressure chronic ulcer of unspecified part of left lower leg with unspecified severity; L97.929 - Non-pressure chronic ulcer of unspecified part of left lower leg with unspecified severity (4) HTN (hypertension) Qualifiers: Hypertension type: essential hypertension Qualified Code(s): I10 - Essential (primary) hypertension (6) Leukopenia Qualifiers: Leukopenia type: neutropenia Neutropenia type: unspecified Qualified Code(s) : D70.9 - Neutropenia, unspecified (8) Deep venous thrombosis of right upper extremity Qualifiers: Affected thrombotic vein of extremity: axillary Chronicity: acute Qualified Code(s): I82.A11 - Acute embolism and thrombosis of right axillary vein
--- NOTE | 2018-04-22 09:46 | Infectious Disease Progress No ---
Date of Encounter: 04/22/18 Time of Encounter: 09:00 - Assessment and Plan (1) Fever Status: Resolved Resolved. Etiology unclear: infectious vs. inflammatory vs. rheumatologic vs. other. Clinically, the patient appears to have improved. Continue to monitor closely. Qualifiers: Fever type: unspecified Qualified Code(s): R50.9 - Fever, unspecified (2) Leukopenia Status: Resolved Etiology unclear: sepsis vs. medication vs. other. WBC and ANC improved after Neupogen. Hem/Onc consulted. Appreciate recommendations. Status post BBX 04/17/18. Showed granulocytic hypoplasia and left shift, most likely related to medication (Bactrim). No evidence of malignancy. Qualifiers: Leukopenia type: neutropenia Neutropenia type: unspecified Qualified Code (s): D70.9 - Neutropenia, unspecified (3) Venous ulcer of leg Status: Acute Location: LLE. Etiology: Venous stasis ulcer. Previous wound culture positive for PSEA. Started on Cefepime 03/19/18 after the patient developed a rash while on Bactrim. CT of the LLE showed a subtle periosteal reaction to the tibia adjacent to the soft tissue ulceration. ESR 44, CRP 74. Dressing changes per the wound care clinic recommendations. Continue Meropenem 1 gram IV Q8H. Duration of treatment depends on the clinical picture, but likely 6 weeks. Monitor renal function and dose-adjust antibiotics. Midline placed to the LUE. Will need weekly CBC, BUN/Cr, ESR, and CRP. Follow up with ID 04/30/18 at 1440. Qualifiers: Laterality: left Qualified Code(s): I83.029 - Varicose veins of left lower extremity with ulcer of unspecified site; L97.929 - Non-pressure chronic ulcer of unspecified part of left lower leg with unspecified severity; L97.929 - Non- pressure chronic ulcer of unspecified part of left lower leg with unspecified severity; L97.929 - Non-pressure chronic ulcer of unspecified part of left lower leg with unspecified severity; L97.929 - Non-pressure chronic ulcer of unspecified part of left lower leg with unspecified severity (4) PETR (acute kidney injury) Status: Resolved Resolved. (5) Allergy to antibiotic Status: Acute Patient developed rash, presumptively to the Bactrim she was on previously. Patient reports that the rash is improved. Continue supportive care. Dermatology consulted and punch biopsy performed. Await results. (6) Facial droop Status: Resolved Likely secondary to TIA. Resolved (7) Hyponatremia Status: Resolved Resolved. Management per the primary team. (8) Rash Status: Resolved Etiology unclear: antibiotic reaction vs. other. Status post biopsy. Results pending. Rash continues to improve. Currently on Claritin and Pepcid. (9) TIA (transient ischemic attack) Status: Resolved (10) HTN (hypertension) Status: Chronic Qualifiers: Hypertension type: essential hypertension Qualified Code(s): I10 - Essential (primary) hypertension (11) Interstitial lung disease Status: Chronic CT chest showed findings consistent with interstitial lung disease and fibrosis. Etiology unclear. Pulmonary consult noted and appreciated. Fungitell and Histo antigens are negative. Rheumatology consulted and following. Appreciate recommendations. (12) Deep venous thrombosis of right upper extremity Status: Resolved STatus post RUE DVT study that showed DVT in the right upper subclavian, axillary, and brachial veins as well as SVT in the right basilic vein. Likely secondary to previous midline. Anticoagulation per the primary team. Qualifiers: Affected thrombotic vein of extremity: axillary Chronicity: acute Qualified Code(s): I82.A11 - Acute embolism and thrombosis of right axillary vein - Subjective Interval history: Patient seen and examined. No acute events noted overnight. Patient states that overall she feels okay today. Denies fevers, chills, or rigors. Denies chest pain or shortness of breath. States cough is better. Denies nausea, vomiting, or diarrhea. Reports appetite is better. Denies abdominal pain or urinary complaints. Complains of pain at the site of the ulcer. Reports her skin rash is getting better. She denies oral thrush. Reports RUE pain improved. Infect Dis PN-Objective Data - Labs CBC & Chem 7: 04/22/18 04:20 04/22/18 04:20 Labs: Laboratory Results - last 24 hr 04/22/18 04/22/18 04:20 04:20 WBC 9.6 RBC 3.59 L Hgb 11.4 L Hct 34.1 L MCV 95.0 MCH 31.8 MCHC 33.4 RDW 14.0 Plt Count 320 MPV 10.3 Immature Gran % 16.7 H Seg Neutrophils % 44.0 Band Neutrophils % 2.0 Lymphocytes % 42.0 Monocytes % 10.0 Eosinophils % 0.0 Basophils % 0.2 Metamyelocytes % 2.0 H Neutrophils # 4.6 Lymphocytes # 2.3 Monocytes # 1.3 Eosinophils # 0.0 Basophils # 0.0 Nucleated RBCs/100 WBC 0.2 H Platelet Estimate Normal Sodium 135 L Potassium 4.0 Chloride 102 Carbon Dioxide 28 BUN 23 Creatinine 0.65 Est GFR ( Amer) > 60 Est GFR (Non-Af Amer) > 60 BUN/Creatinine Ratio 35 H Glucose 86 Calculated Osmolality 283 Calcium 9.5 Total Bilirubin 0.4 AST 16 ALT 28 Alkaline Phosphatase 73 Serum Total Protein 6.4 Albumin 3.2 L Globulin 3.2 Albumin/Globulin Ratio 1.0 L Cultures: Cultures 04/11/18 17:20 Blood Culture - Final Peripheral Venipuncture No growth. Final report. 04/11/18 17:20 Blood Culture - Final Peripheral Venipuncture No growth. Final report. Serology 04/16/18 04/16/18 04/15/18 Range/Units 14:45 07:05 11:57 Urine Creatinine 49 mg/dL Protein/Creatinin Ratio 1.10 H (0.00-0.20) mg/mg Urine Total Protein 54 H (1-14) mg/dL Chlamy pneumoniae PCR (Not Detect) Adenovirus (PCR) (Not Detect) B. pertussis DNA (PCR) (Not Detect) B.parapertussis DNA PCR (Not Detect) Coronavirus OC43 (PCR) (Not Detect) Coronavirus HKU1 (PCR) (Not Detect) Coronavirus 229E (PCR) (Not Detect) Coronavirus NL63 (PCR) (Not Detect) U Histopl Galactoman Ag NOT DETECTED ng/mL U Histopl Galact Ant Int NOT DETECTED (Not Detected) Human Metapneumovir PCR (Not Detect) Influenza A (H1) PCR (Not Detect) Influ A (H1N1/09) PCR (Not Detect) Influenza A (H3) PCR (Not Detect) Influenza A Untype (PCR) (Not Detect) Influenza Type B (PCR) (Not Detect) Mycoplasma pneumon IgG 0.19 H (<=0.09) U/L Mycoplasma pneumon IgM 0.46 (<=0.76) U/L M.pneumoniae DNA (PCR) (Not Detect) Parainfluenza 1 (PCR) (Not Detect) Parainfluenza 2 (PCR) (Not Detect) Parainfluenza 3 (PCR) (Not Detect) Parainfluenza 4 (PCR) (Not Detect) RSV (PCR) (Not Detect) Entero/Rhino (PCR) (Not Detect) Beta-(1,3)-D-Glucan pg/mL B-(1,3)-D-Glucan Intrp (Negative) 04/15/18 04/14/18 Range/Units 11:54 11:42 Urine Creatinine mg/dL Protein/Creatinin Ratio (0.00-0.20) mg/mg Urine Total Protein (1-14) mg/dL Chlamy pneumoniae PCR Not Detected (Not Detect) Adenovirus (PCR) Not Detected (Not Detect) B. pertussis DNA (PCR) Not Detected (Not Detect) B.parapertussis DNA PCR Not Detected (Not Detect) Coronavirus OC43 (PCR) Not Detected (Not Detect) Coronavirus HKU1 (PCR) Not Detected (Not Detect) Coronavirus 229E (PCR) Not Detected (Not Detect) Coronavirus NL63 (PCR) Not Detected (Not Detect) U Histopl Galactoman Ag ng/mL U Histopl Galact Ant Int (Not Detected) Human Metapneumovir PCR Not Detected (Not Detect) Influenza A (H1) PCR Not Detected (Not Detect) Influ A (H1N1/09) PCR Not Detected (Not Detect) Influenza A (H3) PCR Not Detected (Not Detect) Influenza A Untype (PCR) Not Detected (Not Detect) Influenza Type B (PCR) Not Detected (Not Detect) Mycoplasma pneumon IgG (<=0.09) U/L Mycoplasma pneumon IgM (<=0.76) U/L M.pneumoniae DNA (PCR) Not Detected (Not Detect) Parainfluenza 1 (PCR) Not Detected (Not Detect) Parainfluenza 2 (PCR) Not Detected (Not Detect) Parainfluenza 3 (PCR) Not Detected (Not Detect) Parainfluenza 4 (PCR) Not Detected (Not Detect) RSV (PCR) Not Detected (Not Detect) Entero/Rhino (PCR) Not Detected (Not Detect) Beta-(1,3)-D-Glucan 35 pg/mL B-(1,3)-D-Glucan Intrp NEGATIVE (Negative) Exam - Constitutional Vitals: Temp Pulse Resp BP Pulse Ox 97.9 F 71 16 117/67 96 04/22/18 07:36 04/22/18 07:36 04/22/18 07:36 04/22/18 07:36 04/22/18 07:36 General appearance: average body habitus, cooperative, no acute distress - Head Head exam: Present: atraumatic, normal inspection, normocephalic - Eye Eye exam: Present: EOMI, normal appearance, PERRL Pupils: Present: normal accommodation - ENT ENT exam: Present: mucous membranes moist - Neck Neck exam: Present: normal inspection - Respiratory Respiratory exam: Present: CTAB. Absent: rales, respiratory distress, rhonchi, wheezes - Cardiovascular Cardiovascular exam: Present: RRR, +S1, +S2 - GI/Abdominal GI/Abdominal exam: Present: normal bowel sounds, soft. Absent: distended, tenderness - Extremities Exam Extremities exam: Present: tenderness (LLE). Absent: joint swelling, pedal edema Additional comments: Left lower leg wound VAC dressing noted with small amount of dark yellow seropurulent drainage noted in the canister. 125mm Hg continuous suction. No leak. Overlying compression dressing C/D/I. - Neurological Exam Neurological exam: Present: alert, oriented X3, no focal deficits - Psychiatric Psychiatric exam: Present: normal affect, normal mood - Skin Skin exam: Present: dry, intact, normal color, warm Additional comments: Rash improved. Consult Discharge Plan - Plan Instructions: Prednisone (By mouth), Hydrocortisone (On the skin), Tramadol ( By mouth), Rivaroxaban (By mouth), Transient Ischemic Attack (DC), Hyponatremia (DC), Peripheral Vascular Disorders (DC), Chronic Hypertension (DC) Additional Instructions: Please go get blood drawn on 04/28/18. Prescription given to you. Take prescription with you to lab. Midline to left upper arm stays in place for IV antibiotics at home. [facility] to maintain this and give antibiotics through. Wound Vac to left lower extremity. Wound Clinic to change today (04/22/18) and you have an appt (04/24/18) @ 10:30am at wound clinic to change this also. Referrals: Catracho Galarza MD [Partnered Physician] - 04/30/18 1:00 pm Donald Anderson DO [Partnered Physician] - 05/07/18 1:00 pm Phi Calles MD [Partnered Physician] - (appt.requested ) Elaina Andrade CNP [Primary Care Provider] - 04/30/18 12:30 pm Yulia Gates MD [Partnered Physician] - 04/30/18 2:40 pm Prescriptions: Aspirin 81 mg PO DAILY 30 Days #30 tab.chew Aspirin Enteric Coated [Aspirin EC] 81 mg PO DAILY 30 Days #30 tablet. Hydrocortisone 1% CREAM [Cortaid] 1 appl TP BID #1 bottle predniSONE [PredniSONE] 10 mg PO DAILY 3 Days #3 tablet Rivaroxaban [Xarelto] 1 dose PO AD 30 Days pack Tramadol HCl [Ultram] 50 mg PO TID PRN 7 Days #21 tab PRN Reason: chronic pain - Attending Attestation I examined this patient and my medical decision-making was reviewed with Arelis Godwin CNP. I agree with the documented findings, disposition and treatment plan as described except to the extent set forth below.
--- NOTE | 2018-04-22 13:29 | Physician Discharge Referral ---
Home Health/Hosp Referral Info Transfer to: Home Health Attending Provider: Elaina Andrade Provider in Charge Post Discharge: PCP - Diagnosis (1) Venous ulcer of leg Priority: Primary Status: Acute (2) TIA (transient ischemic attack) Priority: Secondary Status: Resolved (3) PETR (acute kidney injury) Priority: Secondary Status: Resolved (4) HTN (hypertension) Priority: Secondary Status: Chronic (5) Rash Priority: Secondary Status: Resolved (6) Leukopenia Priority: Secondary Status: Resolved (7) Interstitial lung disease Priority: Secondary Status: Chronic (8) Deep venous thrombosis of right upper extremity Priority: Secondary Status: Resolved - Respiratory Orders None Smoking Cessation: Smoking cessation has been advised. For more information, call the [employer] Quit Line at 6-116-AQCU-NOW. - Diet/Nutrition Diet/Nutrition Orders: Regular - Activity Activity Orders: Walker - Services Needed Following services are medically necessary services: Med Social Work, Home Infusion - Transfer Medications Prescriptions: Aspirin 81 mg PO DAILY 30 Days #30 tab.chew Hydrocortisone 1% CREAM [Cortaid] 1 appl TP BID #1 bottle predniSONE [PredniSONE] 10 mg PO DAILY 3 Days #3 tablet Rivaroxaban [Xarelto] 1 dose PO AD 30 Days pack Tramadol HCl [Ultram] 50 mg PO TID PRN 7 Days #21 tab PRN Reason: chronic pain Home Medications: Losartan/Hydrochlorothiazide [Losartan-Hctz 100-25 mg Tab] 1 tab PO DAILY [History] Ibuprofen [Motrin Ib] 400 mg PO BID PRN 04/10/18 [History] Rivaroxaban [Xarelto] 1 dose PO AD 30 Days pack 04/18/18 [Rx] Acetaminophen [Tylenol] 650 mg PO Q6HR PRN tablet 04/21/18 [Rx] Benzonatate [Tessalon] 100 mg PO TID PRN capsule 04/21/18 [Rx] DiphenhydraMINE [Benadryl] 25 mg IVP Q6HR PRN vial 04/21/18 [Rx] Famotidine [Pepcid] 20 mg PO BID tablet 04/21/18 [Rx] Hydrocortisone 1% CREAM [Cortaid] 1 appl TP BID #1 bottle 04/21/18 [Rx] Ipratropium/Albuterol Neb [Duoneb] 3 ml IH [id number] PRN inhsol 04/21/18 [Rx] Loratadine [Claritin] 10 mg PO DAILY tablet 04/21/18 [Rx] Ondansetron ODT [Zofran ODT] 4 mg SL Q6HR PRN tab.rapdis 04/21/18 [Rx] Saliva Stimulant [Biotene Moisturizing Rinse] 1 spray PO Q2H PRN bottle [Rx] Tramadol HCl [Ultram] 50 mg PO TID PRN 7 Days #21 tab 04/21/18 [Rx] predniSONE [PredniSONE] 10 mg PO DAILY 3 Days #3 tablet 04/21/18 [Rx] Aspirin 81 mg PO DAILY 30 Days #30 tab.chew 04/22/18 [Rx] Allergies/Adverse Reactions: 3 Allergy/AdvReac Type Severity Reaction Status Date / Time sulfamethoxazole Allergy Hives Verified 04/10/18 11:33 [From Bactrim] trimethoprim [From Bactrim] Allergy Hives Verified 04/10/18 11:33 Certification: Further, I certify that my clinical findings support that this patient is homebound (i.e. absences from home require considerable and taxing effort and are for medical reasons or [facility] services or infrequently or short duration when for other reasons) because: Homebound Reason: Patient requires assistance of a person or device to safely leave home Attestation: My signature below is to certify that this patient is under my care and that I, or nurse practitioner, or a physician's medical laboratory assistant working with me, has a face-to -face encounter with this patient.
== END 2018-04-22 14:08 | disposition home or self-care (01) | DRG 299 ==
LOC: 2NNU 09:37 → EMEROOARM 09:37 → 2NNU 16:32 → 2NENU 04-15 11:38
PROVIDERS: ADMIT Student in an Organized Health Care Education/Training Program; ATTEND Internal Medicine